=== PATIENT | male | born 1955 | race Caucasian/White ===

== ENCOUNTER 2017-04-03 20:41 | Emergency (ER) | payer MEDICARE, MEDICAID ==
[2017-04-03 21:18] VITALS: BP 78/40
--- NOTE | 2017-04-03 21:30 | UC ---
Skin Complaint HPI - HPI Summary HPI Summary: Red and blistered area to R shoulder noticed today. Pt states he has had this in the past, but does not remember any diagnosis or treatment. Pt has limited cognitive ability and does not estimate time well or remember details. Denies fever, malaise, or fainting. Was at [facility] for a long time about a month ago for a foot infection in R foot. Is taking levaquin and doxycycline for this, having regular dressing changes. - History of Current Complaint Chief Complaint: UCSkin Time Seen by Provider: 04/03/17 20:46 Stated Complaint: SKIN COMPLAINT Hx Obtained From: Patient, Medical Records Onset/Duration: Still Present Timing: Constant Onset Severity: Mild Current Severity: Mild Location: Discrete Character: Raised Aggravating: Nothing Alleviating: Nothing Associated Signs & Symptoms: Positive: Negative Related History: Recent change in medication - Allergy/Home Medications Allergies/Adverse Reactions: Allergies Allergy/AdvReac Type Severity Reaction Status Date / Time No Known Allergies Allergy Verified 04/03/17 20:57 Home Medications: Home Medications Acetaminophen TAB* [Tylenol TAB*] 650 mg PO BID PRN 04/03/17 [History Confirmed 04/03/17] Artificial Tears* 15 ML BTL [Polyvinyl Alcohol 1.4% OPTH*] 1 drop BOTH EYES DAILY 04/03/17 [History Confirmed 04/03/17] Dextrose (Diabetic Use) [Glucose] 6 gm PO ONCE PRN 04/03/17 [History Confirmed 04/03/17] Doxycycline Hyclate [Doryx] 100 mg PO BID 04/03/17 [History Confirmed 04/03/17] Glucagon* [Glucagen*] 1 mg .SEE ORDER SEE INSTRUCTIONS PRN 04/03/17 [History Confirmed 04/03/17] Insulin Aspart [Novolog Flexpen] 100 unit SC DAILY 04/03/17 [History Confirmed 04/03/17] Levofloxacin [Levaquin] 1.5 tab PO DAILY 04/03/17 [History Confirmed 04/03/17] Melatonin 5 mg PO BEDTIME 04/03/17 [History Confirmed 04/03/17] OLANzapine TAB* [Zyprexa 5 MG TAB*] 5 mg PO BEDTIME 04/03/17 [History Confirmed 04/03/17] metFORMIN* [Glucophage 500 MG TAB *] 500 mg PO BID 04/03/17 [History Confirmed 04/03/17] Review of Systems Constitutional: Negative Skin: Other - blisters Eyes: Negative ENT: Negative Respiratory: Negative Cardiovascular: Negative Gastrointestinal: Negative Genitourinary: Negative Motor: Negative Neurovascular: Negative Musculoskeletal: Negative Neurological: Negative Psychological: Negative All Other Systems Reviewed And Are Negative: Yes PMH/Surg Hx/FS Hx/Imm Hx Endocrine History: Diabetes Cardiovascular History: Hypertension Respiratory History: Asthma GI/ History: Gastroesophageal Reflux Other Neurological History: CP, MR - Surgical History Surgical History: Yes Surgery Procedure, Year, and Place: TRACHEOSTOMY. GASTROSTOMY. AMPUTATION TOES RIGHT FOOT - Family History Known Family History: Positive: Unknown - not in medical record provided - Social History Occupation: Disabled Lives: Senior Living Alcohol Use: None Substance Use Type: None Smoking Status (MU): Never Smoked Tobacco Physical Exam Triage Information Reviewed: Yes Appearance: Well-Appearing, No Pain Distress, Well-Nourished, Other: - pt able to stand for minutes at a time without syncope or reported feelings of dizziness Vital Signs: Initial Vital Signs Temp 98.3 F 04/03/17 20:47 Pulse 83 04/03/17 20:47 Resp 16 04/03/17 20:47 BP 88/44 04/03/17 20:47 Pulse Ox 100 04/03/17 20:47 Vital Signs Reviewed: Yes Eye Exam: Normal, Other - PERRL, EOM-I Eyes: Positive: Conjunctiva Clear ENT: Positive: Normal ENT inspection, Pharynx normal, TMs normal. Negative: Tonsillar swelling Neck exam: Normal Neck: Positive: Supple, Nontender, No Lymphadenopathy Respiratory Exam: Normal Respiratory: Positive: Chest non-tender, Lungs clear, Normal breath sounds, No respiratory distress, No accessory muscle use Cardiovascular Exam: Normal Cardiovascular: Positive: RRR, No Murmur Abdomen Description: Negative: CVA Tenderness (R), CVA Tenderness (L) Musculoskeletal Exam: Normal Neurological Exam: Normal Neurological: Positive: Alert Psychological Exam: Normal Skin Exam: Other - Irreg separate red patches of skin on R posterior shoulder with raised bullae x 3, one partially flaccid. Appear to have serous fluid in them, no drainage. R foot inspected around adhesive bandage. No erythema, streaking, swelling, or tenderness. Course/Dx - Diagnoses Provider Diagnoses: bullous rash on R shoulder. hypotension Discharge - Discharge Plan Condition: Stable Disposition: HOME Patient Education Materials: Hypotension (ED) Referrals: Carmelita Alaniz [Other] Additional Instructions: We could not find a cause for the blistering rash on the shoulder tonight. Burn injury is possible, though Max denies any painful injuries in recent days. Other possibilities include autoimmune illness and drug reaction. If rash continues to worsen, I recommend discussing changing or discontinuing his antibiotics with his prescribing provider. Max's blood pressure was low here, and it appears to be significantly lower than his baseline. Our readings were 88/44 and 78/40, taken in both arms and with a machine and manually. Because he had no other symptoms of fainting, confusion, or dizziness, this can be followed up outpatient with his primary care provider. If he faints, please bring him to an emergency department.
== END 2017-04-03 21:50 | disposition home or self-care (01) ==
LOC: UCCORT 20:41
DX: R23.8 Other skin changes (principal); I95.9 Hypotension, unspecified; E11.9 Type 2 diabetes mellitus without complications; Z79.4 Long term (current) use of insulin; I10 Essential (primary) hypertension; J45.909 Unspecified asthma, uncomplicated; K21.9 Gastro-esophageal reflux disease without esophagitis
CPT/HCPCS: 81003; 99202; G0463

== ENCOUNTER 2017-08-04 15:51 | Emergency (ER) | payer MEDICARE, MEDICAID ==
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
[2017-08-04 16:38] VITALS: BP 129/64
--- NOTE | 2017-08-04 17:50 | RAD ---
Indication: Right hip pain. 2 views of the right hip demonstrates no fracture. Degenerative changes of the right hip are noted. Pelvic ring is intact. IMPRESSION: Degenerative changes of the right hip with no evidence of fracture.
--- NOTE | 2017-08-04 17:51 | RAD ---
Indication: Right knee pain. 4 views of the right knee demonstrates no fracture. Degenerative changes are noted with calcifications along the quadriceps tendon. IMPRESSION: No fracture of the right knee is noted.
== END 2017-08-04 18:03 | disposition home or self-care (01) ==
LOC: UCCORT 15:51
DX: M25.551 Pain in right hip (principal); M25.561 Pain in right knee
CPT/HCPCS: 99212; G0463

== ENCOUNTER 2018-05-13 12:45 | Emergency (ER) | payer MEDICARE, MEDICAID ==
--- OUTSIDE RECORDS SUMMARY | 2018-05-13 13:45 | XMS REPORT ---
:1955 External Reference #:[id number] Author Organization [facility] Address [address], [address] [place] [address] Phone [phone] Care Team Providers Name Role Phone Kiersten Powell M.D. Care Team Information Online Education Manager Unavailable Kiersten Powell M.D. Primary Care Physician Unavailable Payers Type Date Identification Numbers Payment Provider Subscriber Medicare Primary Policy Number: [id number] Medicare Max Elizabeth PayID: [id number] [address] [place] [address] Medicaid Policy Number: [id number] Medicaid Max Elizabeth PayID: [id number] [address] [place] [address] Problems Date Description Provider Status Onset: 04/05/2017 Benign essential hypertension Kiersten Powell M.D. Active Onset: 04/06/2017 Diabetic peripheral neuropathy associated Kiersten Powell M.D. Active with type 2 diabetes mellitus Onset: 01/17/2018 Localized, primary osteoarthritis Sam Inman M.D. Active Onset: 12/19/2017 Arthralgia of the pelvic region and thigh Kiersten Powell M.D. Active Onset: 12/19/2017 Knee pain Kiersten Powell M.D. Active Social History Type Date Description Comments Marital Status Single Lives With Assisted Living Occupation Retired Occupation Disabled Work Status Retired Work Status Disabled Hand Dominance Right-handed Cigarette Use Never Smoked Cigarettes Cigars Never Smoked Cigars Pipe Never Smoked A Pipe Smokeless Tobacco Never Used Smokeless Tobacco ETOH Use Has consumed alcohol in the past Recreational Drug Use Former Drug User Smoking Patient denies history of smoking Daily Caffeine Comsumes on average 1 cup of decaff coffee per day Daily Caffeine Does Not Consume Caffeine Exercise Type/Frequency Exercises regularly Allergies, Adverse Reactions, Alerts Date Description Reaction Status Severity Comments 01/31/2017 NKDA active 01/31/2017 Lactose active Medications Medication Date Status Form Strength Qnty SIG Indications Ordering Provider Aspirin 04/19 Active Tablets 81mg 90tab 1 by Z00.[address] s mouth M.D. every day Hydrocortisone 04/19 Active Cream 2.5% 20gm apply to L30.9 Kiersten Powell affected M.D. area three times a day prn (right leg) Metoprolol 04/19 Active Tablets 50mg 60tab 1 by Kiersten Powell Tartrate s mouth M.D. twice a day Lisinopril 03/15 Active Tablets 40mg 30tab 1 by I10 Kiersten Powell s mouth M.D. every day Tizanidine HCL 09/22 Active Tablets 4mg 30tab Take 1 Kiersten Powell s Tablet By M.DJvoon Mouth Every 8 Hours as Needed Unistik CZT 09/19 Active 100un Test Kiersten Powell Comfort its Sugars as M.D. Lancet Directed Gabapentin 09/01 Active Capsules 300mg 90cap 1 tab by M25.551 Kiersten Powell s mouth QHS M.D. Atorvastatin 07/07 Active Tablets 10mg 30tab 1 By Kiersten Powell Calcium s Mouth M.D. Every Day Acetaminophen 07/07 Active Tablets 500mg 180ta 2 tabs by Kiersten Powell, bs mouth M.D. every 8 hours as needed pain, mdd=3g Lancets Ultra 06/20 Active Misc 100un test Jenniferleigh its sugars as Clune, COSMETIC SALES ASSISTANT directed dxe11.9 Glucagon 06/07 Active Kit 1mg 2unit inject as Lj Nath s needed Vitamin D 06/06 Active Capsules [id number] 4caps 1 cap by Kiersten Powell, (Ergocalciferol mouth M.D. ) every week Metamucil 05/23 Active Powder 58.6% 1Bott 1 Kiersten Powell Smooth le tablespocurry M.D. n in 8oz of water tid for constipat ion Metformin HCL Active Tablets 500mg 1 by Unknown /0000 mouth twice a day Melatonin Active Capsules 5mg 1 by Unknown / mouth every at bedtime as needed Levemir Active Solution 100Unit/M 50 units Unknown /0000 L at hs Hydroxyzine HCL Active Tablets 25mg 1 tab PO Slaven, Daniel, bid Glucose Active Chewtabs 4gm 1 tab by Unknown / mouth as needed Aripiprazole Active Tablets 15mg take 1 Unknown tab po once a day Lamotrigine Active Tablets 25mg take two tablets by mouth three times a day Lac-Hydrin Active Lotion 12% apply to affected area 2 times a day Ketostix 2880 Active use as Unknown /0000 directed. max daily dose: 10 dx:E11.65 Lisinopril 01/16 Hx Tablets 30mg 30tab 1 by I10 Kiersten Powell, s mouth M.D. - every day 03/15 Sildenafil 01/16 Hx Tablets 50mg 5tabs 1 tab by F52.21 Kiersten Powell, mouth 1 M.D. - hour 04/19 before sexual activity Baclofen 09/19 Hx Tablets 10mg 60tab take 1 Kiersten Powell s tablet by M.D. - mouth 8H 09/22 pr muscle spasms Tizanidine HCL 09/12 Hx Tablets 4mg 30tab Take 1 Kiersten Powell, s Tablet By M.D. - Mouth 09/19 Every Hours as Needed Acetaminophen 07/07 Hx Capsules 500mg 180ca 2 caps by Kiersten Powell, ps mouth q8 M.D. - as needed 07/07 pain mdd=3g Acetaminophen 06/07 Hx Tablets 325mg 2 tablets Lj Nath, by mouth MD - bid by 07/07 mouth as needed for paini Lisinopril 04/06 Hx Tablets 20mg 30tab 1 by I10 Kiersten Powell, s mouth M.D. - every day 01/16 Amlodipine Hx Tablets 10mg 1 by Unknown Besylate / mouth - every day 04/06 Abilify Hx Tablets 15mg 1 PO Unknown /0000 Daily - 04/19 Fenofibrate 00 Hx Tablets 160mg 1 by Unknown /0000 mouth - every day 04/06 Lisinopril 00 Hx Tablets 40mg 1 by Unknown /0000 mouth - every day 04/06 Zyprexa 00 Hx Tablets 2.5mg 1 po Unknown /0000 daily Tylenol Hx Capsules 325mg 1 tab by Unknown /0000 mouth - three 06/07 day Breo Ellipta Hx Aerosol 200-25mcg take 1 Unknown /0000 /Inh puff once - daily. 04/06 Levemir Hx Solution 100Unit/M 42 units Unknown /0000 L sq every day....valles s samples of the pen Novolog Hx Solution 100Unit/M sliding Unknown /0000 L scale - 03/20 Doxycycline Hx Capsules 50mg 2po twice Unknown Hyclate /0000 daily - 06/07 Artificial Hx Solution 1.4% instill 1 Unknown Tears /0000 drop in - both eyes 03/20 4 times day Levofloxacin Hx Tablets 750mg 1 1/2 by Unknown /0000 mouth - every day 06/07 Olanzapine Hx Tablets 5mg Take One Unknown /0000 Tablet By - Mouth 04/19 Evening Atorvastatin Hx Tablets 20mg 1 by Unknown Calcium /0000 mouth - every day 07/07 Robaxin Hx Tablets 500mg 120ta 1 q8hr as Kiersten Powell, /0000 bs needed M.D. - 09/12 Mobic Hx Tablets 7.5mg 1 by Unknown /0000 mouth - twice a Doxycycline Hx 100mg 1 cap po Unknown /0000 bid x 14 - days 09/12 Lamotrigine Hx 25mg 2 tabs Unknown /0000 tid - 03/20 Metoprolol Hx Tablets 25mg 180ta 1 by Kiersten Powell, Tartrate /0000 bs mouth M.D. - twice a Liquitears Hx Solution 1.4% instill 1 Unknown /0000 drop into - both eyes 04/19 as needed /2018 Immunizations CPT Code Status Date Vaccine Lot # [id number] Given 07/07/2017 Influenza Virus Vaccine Quadrivalent Iiv4 Split Preser Free Id Vital Signs Date Vital Result Comment 04/19/2018 BP Systolic Sitting Left Arm 160 mmHg BP Diastolic Sitting Left Arm 82 mmHg Heart Rate 82 /min Height 68.75 inches 5'8.75" Weight 224.50 lb BMI (Body Mass Index) 33.4 kg/m2 BSA (Body Surface Area) 2.16 m2 [place] body weight in kilograms 72 O2 % BldC Oximetry 99 % 03/20/2018 BP Systolic Sitting Left Arm 146 mmHg BP Diastolic Sitting Left Arm 84 mmHg Body Temperature 96.5 F Heart Rate 64 /min Height 65 inches 5'5" Weight 225.00 lb BMI (Body Mass Index) 37.4 kg/m2 BSA (Body Surface Area) 2.08 m2 [place] body weight in kilograms 62 03/15/2018 BP Systolic 152 mmHg BP Diastolic 82 mmHg Body Temperature 96.5 F Heart Rate 68 /min Respiratory Rate 20 /min Height 72 inches 6'0" Weight 222.00 lb BMI (Body Mass Index) 30.1 kg/m2 BSA (Body Surface Area) 2.23 m2 [place] body weight in kilograms 81 O2 % BldC Oximetry 99 % 01/17/2018 BP Systolic Sitting Right Arm 149 mmHg BP Diastolic Sitting Right Arm 73 mmHg Body Temperature 97.2 F Heart Rate 61 /min Respiratory Rate 18 /min Height 72 inches 6'0" Weight 222.00 lb BMI (Body Mass Index) 30.1 kg/m2 BSA (Body Surface Area) 2.23 m2 [place] body weight in kilograms 81 01/16/2018 BP Systolic Sitting Left Arm 140 mmHg BP Diastolic Sitting Left Arm 84 mmHg Height 72 inches 6'0" Weight 222.12 lb BMI (Body Mass Index) 30.1 kg/m2 BSA (Body Surface Area) 2.23 m2 [place] body weight in kilograms 81 12/19/2017 BP Systolic 124 mmHg BP Diastolic 80 mmHg Heart Rate 66 /min Height 72 inches 6'0" Weight 215.00 lb BMI (Body Mass Index) 29.2 kg/m2 BSA (Body Surface Area) 2.20 m2 [place] body weight in kilograms 81 O2 % BldC Oximetry 99 % 10/18/2017 BP Systolic Sitting Left Arm 162 mmHg BP Diastolic Sitting Left Arm 68 mmHg Heart Rate 84 /min Height 72 inches 6'0" Weight 213.25 lb BMI (Body Mass Index) 28.9 kg/m2 BSA (Body Surface Area) 2.19 m2 [place] body weight in kilograms 81 09/01/2017 BP Systolic Sitting Right Arm 124 mmHg BP Diastolic Sitting Right Arm 72 mmHg Heart Rate 49 /min Height 72 inches 6'0" Weight 215.38 lb BMI (Body Mass Index) 29.2 kg/m2 BSA (Body Surface Area) 2.20 m2 [place] body weight in kilograms 81 O2 % BldC Oximetry 97 % 07/07/2017 BP Systolic 134 mmHg BP Diastolic 84 mmHg Body Temperature 97.1 F Heart Rate 73 /min Height 72 inches 6'0" Weight 213.00 lb BMI (Body Mass Index) 28.9 kg/m2 BSA (Body Surface Area) 2.19 m2 [place] body weight in kilograms 81 O2 % BldC Oximetry 99 % 06/06/2017 BP Systolic 140 mmHg BP Diastolic 88 mmHg Heart Rate 73 /min Weight 210.00 lb with boot on 04/06/2017 BP Systolic 118 mmHg BP Diastolic 72 mmHg Body Temperature 96.5 F Heart Rate 98 /min Height 72 inches 6'0" Weight 205.00 lb BMI (Body Mass Index) 27.8 kg/m2 BSA (Body Surface Area) 2.15 m2 [place] body weight in kilograms 81 03/16/2017 BP Systolic Sitting Left Arm 104 mmHg BP Diastolic Sitting Left Arm 62 mmHg Heart Rate 92 /min Respiratory Rate 16 /min Height 72 inches 6'0" Weight 210.00 lb BMI (Body Mass Index) 28.5 kg/m2 BSA (Body Surface Area) 2.18 m2 [place] body weight in kilograms 81 O2 % BldC Oximetry 99 % 01/31/2017 BP Systolic Sitting Left Arm 112 mmHg BP Diastolic Sitting Left Arm 60 mmHg Heart Rate 86 /min Respiratory Rate 16 /min Height 72 inches 6'0" Weight 216.00 lb BMI (Body Mass Index) 29.3 kg/m2 BSA (Body Surface Area) 2.20 m2 [place] body weight in kilograms 81 O2 % BldC Oximetry 98 % Results Test Date Test Result H/L Range Note Ua RFX Micro & Culture II 03/17/2018 Urine Color YELLOW Yellow 1 Urine Clarity CLEAR Clear 1 Urine Glucose - Dipstick NEGATIVE mg/dL Negative 1 Urine Bilirubin - Dipstick NEGATIVE Negative 1 Urine Ketone NEGATIVE mg/dL Negative 1 Urine Specific Glover <=1.005 Low 1.010-1.030 1 Urine Blood TRACE Negative 1 Urine PH 5.5 Low 6.5-7.5 1 Urine Protein - Dipstick NEGATIVE mg/dL Negative 1 Urine Urobilinogen - Dipstick 0.2 E.U./dL 0.2-1.0 1 Urine Nitrite - Dipstick NEGATIVE Negative 1 Urine Leuk Esterase NEGATIVE Negative 1 Source: URINE, CLEAN CAT <SEE NOTE> 1, 2 Hemoglobin A1c 02/21/2018 Hgb A1c MFr Bld 7.4 % High 4.0-6.0 Est. average glucose Bld gHb Est-mCnc 166 mg/dL High <126 Laboratory test finding 02/21/2018 Glucose Poc 143 mg/dL High 70-105 Basic Metabolic Panel 01/16/2018 Glucose 172 mg/dL High 74-106 3 BUN 24 mg/dL High 7-18 3 Creatinine 1.3 mg/dL 0.6-1.3 3 Glom Filtration Rate, Estimate 59 mL/min >60 3 If >60 mL/min >60 3, 4 BUN/Creat 18.4 ratio 3 Sodium 140 mmol/L 136-145 3 Potassium 4.4 mmol/L 3.5-5.1 3 Chloride 106 mmol/L 98-107 3 Carbon Dioxide 30 mmol/L 21-32 3 Anion Gap 4 mEq/L Low 8-16 3 Calcium 8.7 mg/dL 8.5-10.1 3 Hemoglobin A1c 11/24/2017 Hgb A1c MFr Bld 7.1 % High 4.0-6.0 Est. average glucose Bld gHb Est-mCnc 157 mg/dL High <126 Laboratory test finding 11/24/2017 Glucose Poc 84 mg/dL 70-105 Stool Culture 11/22/2017 Stool Culture NO ENTERIC PATHO <SEE 5, 6 NOTE> . ................ <SEE NOTE> 5, 7 Note: INCLUDES TESTING <SEE NOTE> 5, 8 . PLESIOMONAS, CAM <SEE NOTE> 5, 9 . ................ <SEE NOTE> 5, 10 . YERSINIA AND VIB <SEE NOTE> 5, 11 . SHOULD BE REQUES <SEE NOTE> 5, 12 Shiga Toxin 1 Antigen SHIGA TOXIN 1 NO <SEE NOTE> 5, 13 Shiga Toxin 2 Antigen SHIGA TOXIN 2 NO <SEE NOTE> 5, 14 Ova & Parasite 11/22/2017 Cryptosporidium Specific NEGATIVE FOR CRY 5, 15 Comprehensive Ag <SEE NOTE> Giardia Specific Antigen NEGATIVE FOR RHONDA <SEE NOTE> 5, 16 Parasite Concentrate Exam Result 1 5, 17 Permanent Trichrome Stain Test not perform <SEE NOTE> 5, 18 Laboratory test 11/22/2017 C. Difficile Toxin B Negative for tox 5, 19 finding By PCR <SEE NOTE> CBC + Diff, Plat Count 10/10/2017 WBC Num Bld Auto 6.6 10*3/uL 4-10 RBC Num Bld Auto 4.23 10*6/uL Low 4.6-6.1 Hgb Bld-mCnc 12.2 g/dL Low 13.5-18 Hct VFr Bld Auto 37.3 % Low 41-53 MCV RBC Auto 88.1 fL 80-96 MCH RBC Qn Auto 28.8 pg 27-33 MCHC RBC Auto-mCnc 32.7 g/dL 32.0-36.0 RDW RBC Auto-Rto 12.5 % 11.5-14.5 Platelet Num Bld Auto 138 10*3/uL Low 150-400 Differential method Bld Automated Diff Neutrophils/leuk NFr Bld Auto 60 % 33-73 Lymphocytes/leuk NFr Bld Auto 28 % 13-52 Monocytes/leuk NFr Bld Auto 8 % 0-11 Eosinophil/leuk NFr Bld Auto 3 % 0-5 Basophils/leuk NFr Bld Auto 1 % 0-2 Neutrophils Num Bld Auto 3.96 10*3/uL 1.8-7.0 Lymphocytes Num Bld Auto 1.86 10*3/uL 1.2-4.0 Monocytes Num Bld Auto 0.56 10*3/uL 0-0.8 Eosinophil Num Bld Auto 0.17 10*3/uL 0-0.5 Basophils Num Bld Auto 0.04 10*3/uL 0-0.2 nRBC/100 WBC Bld Auto-Rto 0 /100{WBCs} 0-0 Laboratory test finding 10/10/2017 Sed Rate - Esr 21 mm/hr High <20 Comprehensive Metabolic [place] 10/10/2017 Albumin SerPl 4.1 g/dL 3.5-5.2 20 BCG-mCnc Bilirub SerPl-mCnc 0.3 mg/dL <1.2 21 Calcium SerPl-mCnc 9.4 mg/dL 8.8-10.2 22 Chloride SerPl-sCnc 105 mmol/L 98-107 23 Creat SerPl-mCnc 0.90 mg/dL 0.5-1.2 24 Glucose SerPl-mCnc 49 mg/dL Low 70-140 25 Alp SerPl-cCnc 115 U/L 40-129 26 Potassium SerPl-sCnc 5.3 mmol/L High 3.5-5.1 27 Prot SerPl-mCnc 6.8 g/dL 6.4-8.3 28 Sodium SerPl-sCnc 142 mmol/L 136-145 29 Ast SerPl-cCnc 22 U/L <40 30 BUN SerPl-mCnc 21 mg/dL 8-23 31 Osmolality SerPl Calc 294 mosm/kg 275-300 32 Creat/Urea nit SerPl 23 33 Hco3 Ser-sCnc 25 mmol/L 22-29 34 Alt SerPl-cCnc 31 U/L <41 35 Anion Gap3 SerPl-sCnc 12 mmol/L 8-15 36 Albumin/Glob SerPl 1.5 37 GFR/Bsa pred.non black SerPl MDRD-ArVRat 89 mL/min/1.73m2 >60 38 GFR/Bsa pred.black SerPl MDRD-ArVRat >90 mL/min/1.73m2 >60 39 Laboratory test finding 10/10/2017 CRP Highly Sensitive 1.5 mg/L <3.0 40 LDL Cholesterol Profile 06/23/2017 Cholesterol 63 mg/dL <200 41, 42 Triglycerides 76 mg/dL <150 41, 43 HDL Cholesterol 44 mg/dL >40 41, 44 LDL-Cholesterol 4 mg/dL < 100 41, 45 Comprehensive Metabolic Panel 06/23/2017 Glucose 224 mg/dL High 74-106 41 BUN 23 mg/dL High 7-18 41 Creatinine 0.9 mg/dL 0.6-1.3 41 Glom Filtration Rate, Estimate >60 mL/min >60 41 If >60 mL/min >60 41, 46 BUN/Creat 25.5 ratio 41 Sodium 141 mmol/L 136-145 41 Potassium 4.6 mmol/L 3.5-5.1 41 Chloride 111 mmol/L High 98-107 41 Carbon Dioxide 26 mmol/L 21-32 41 Anion Gap 4 mEq/L Low 8-16 41 Calcium 9.0 mg/dL 8.5-10.1 41 Total Protein 7.6 g/dL 6.4-8.2 41 Albumin 3.5 g/dL 3.4-5.0 41 Globulin 4.1 g/dL 1.9-4.3 41 Alb/Glob 0.9 ratio 41 Bilirubin,Total 0.4 mg/dL 0.2-1.0 41 Sgot/Ast 18 U/L 15-37 41 SGPT/Alt 33 U/L 12-78 41 Alkaline Phosphatase 132 U/L High 45-117 41 Laboratory test 05/24/2017 Troponin-I 0.044 ng/mL 47, 48 finding Laboratory test 05/24/2017 Hepatitis C Antibody 0.1 s/corat 0.0-0. 47, 49 finding 9 Glycohemoglobin A1c 05/24/2017 Glycohemoglobin (A1c) 7.3 % High 4.2-6. 47 , 50 3 eAG 163 mg/dL 47 Laboratory test finding 05/24/2017 Troponin-I 0.045 ng/mL 47, 51 Basic Metabolic Panel 05/24/2017 Glucose 201 mg/dL High 74-106 47 BUN 19 mg/dL High 7-18 47 Creatinine 0.8 mg/dL 0.6-1.3 47 Glom Filtration Rate, Estimate >60 mL/min >60 47 If >60 mL/min >60 47, 52 BUN/Creat 23.7 ratio 47 Sodium 140 mmol/L 136-145 47 Potassium 4.0 mmol/L 3.5-5.1 47 Chloride 105 mmol/L 98-107 47 Carbon Dioxide 27 mmol/L 21-32 47 Anion Gap 8 mEq/L 8-16 47 Calcium 9.0 mg/dL 8.5-10.1 47 CBS W/Automated Diff 05/24/2017 White Blood Count 6.7 K/uL 3.4-10.5 47 Red Blood Count 4.52 M/uL 4.20-5.80 47 Hemoglobin 12.6 gm/dL Low 12.8-17.0 47 Hematocrit 37.7 % Low 38.0-48.0 47 Mean Cell Volume 83.4 fl 80.0-96.0 47 Mean Corpuscular HGB 27.9 pg 27.0-33.0 47 Mean Corpuscular HGB Conc 33.4 g/dL 31.7-36.0 47 Platelet Count 128 K/uL Low 150-400 47 Red Cell Distri Width SD 38.0 fl 36-51 47 Red Cell Distri Width %CV 12.8 % 11.6-15.8 47 Mean Platelet Volume 13.2 fL High 6.6-10.6 47 Neut% 57.2 % 33.0-73.0 47 Lymph % 29.6 % 20.0-42.0 47 Grainger % 8.6 % 0.0-10.0 47 Eo% 4.3 % 0.0-6.6 47 Bas% 0.3 % 0.0-1.1 47 Neut# 3.85 K/uL 1.8-7.0 47 Lymph # 1.99 K/uL 1.0-4.0 47 Grainger # 0.58 K/uL 0.0-0.8 47 Eos # 0.29 K/uL 0.0-0.5 47 Baso # 0.02 K/uL 0.0-0.1 47 Aot Request 05/23/2017 Aot Request Test(s) added 53, 54 Tests to be added: d-dimer 53 Instructions: thank you 53 CBS W/Automated Diff 05/23/2017 White Blood Count 6.9 K/uL 3.4-10.5 53 Red Blood Count 4.56 M/uL 4.20-5.80 53 Hemoglobin 12.6 gm/dL Low 12.8-17.0 53 Hematocrit 37.9 % Low 38.0-48.0 53 Mean Cell Volume 83.1 fl 80.0-96.0 53 Mean Corpuscular HGB 27.6 pg 27.0-33.0 53 Mean Corpuscular HGB Conc 33.2 g/dL 31.7-36.0 53 Platelet Count 135 K/uL Low 150-400 53 Red Cell Distri Width SD 37.9 fl 36-51 53 Red Cell Distri Width %CV 12.7 % 11.6-15.8 53 Mean Platelet Volume 13.0 fL High 6.6-10.6 53 Neut% 64.4 % 33.0-73.0 53 Lymph % 25.0 % 20.0-42.0 53 Grainger % 7.7 % 0.0-10.0 53 Eo% 2.5 % 0.0-6.6 53 Bas% 0.4 % 0.0-1.1 53 Neut# 4.45 K/uL 1.8-7.0 53 Lymph # 1.73 K/uL 1.0-4.0 53 Grainger # 0.53 K/uL 0.0-0.8 53 Eos # 0.17 K/uL 0.0-0.5 53 Baso # 0.03 K/uL 0.0-0.1 53 Laboratory test finding 05/23/2017 Troponin-I 0.039 ng/mL 55, 56 1 FELL LAST NIGHT, R SIDE RIB, L FLANK PAIN 2 URINE, CLEAN CATCH 3 I10 4 Note: Persistent reduction for 3 months or more in an eGFR <60 mL/min/1.73 m2 defines CKD. Patients with eGFR values >/=60 mL/min/1.73 m2 may also have CKD if evidence of persistent proteinuria is present. The original MDRD equation for estimated GFR is not valid for patients less than 18 years of age. Additional information may be found at www.kdoqi.org. 5 R19.7 6 NO ENTERIC PATHOGENS ISOLATED 7 ................................................... 8 INCLUDES TESTING FOR SALMONELLA, SHIGELLA, AEROMONAS, 9 PLESIOMONAS, CAMPYLOBACTER, AND E. COLI 0157:H7 10 ................................................... 11 YERSINIA AND VIBRIO ARE NOT ROUTINELY SCREENED FOR AND 12 SHOULD BE REQUESTED SEPARATELY 13 SHIGA TOXIN 1 NOT DETECTED 14 SHIGA TOXIN 2 NOT DETECTED Method: ImmunoCard STAT/EHEC Rapid Immunochromatographic Assay 15 NEGATIVE FOR CRYPTOSPORIDIUM SPECIFIC ANTIGEN 16 NEGATIVE FOR GIARDIA SPECIFIC ANTIGEN. The specimen will be held for 5 days. Additional testing may be performed upon request if the antigen tests are negative, and the patient is still symptomatic or has traveled to an endemic region. Method: Alere Quik Chek Rapid Membrane Enzyme Immunoassay 17 No ova, cysts, or parasites seen. One negative specimen does not rule out the possibility of a parasitic infection Performed at: RN - [facility] [address] [id number] Survey Statistician: Irina Vitale MD, Phone: [phone] 18 Test not performed 19 Negative for toxigenic C. difficile by PCR 20 Confirmed 21 Confirmed 22 Confirmed 23 Confirmed 24 Confirmed 25 Confirmed Called to and read back by NOTIFIED MEAGAN [phone] Confirmed 27 Confirmed 28 Confirmed 29 Confirmed 30 Confirmed 31 Confirmed 32 Confirmed 33 Confirmed 34 Confirmed 35 Confirmed 36 Confirmed 37 Confirmed 38 Confirmed 39 Confirmed 40 Confirmed (NOTE) CRPHS (mg/L) CVD risk <1.0 low 1.0-3.0 average >3.0 high 41 I10 42 Reference Guidelines*: Desirable: ........... < 200 mg/dL Borderline High: ..... 200-239 mg/dL High: ................ >=240 mg/dL * The National Cholesterol Education Program (NCEP) 43 Reference Guidelines*: Normal: ............. < 150 mg/dL Borderline High: .... 150-199 mg/dL High: ............... 200-499 mg/dL Very High: .......... > 500 mg/dL * Source: National Cholesterol Education Program (NCEP) 44 Reference Guidelines*: Low HDL: ..... < 40 mg/dL Normal: ..... 40-60 mg/dL Desirable: ... > 60 mg/dL *The National Cholesterol Education Program(NCEP) 45 Reference Guidelines*: Optimal:........... <100 mg/dL Near Optimal....... 100-129 mg/dL Borderline High.... 130-159 mg/dL High............... 160-189 mg/dL Very High.......... >=190 mg/dL * Source: National Cholesterol Education Program (NCEP) 46 Note: Persistent reduction for 3 months or more in an eGFR <60 mL/min/1.73 m2 defines CKD. Patients with eGFR values >/=60 mL/min/1.73 m2 may also have CKD if evidence of persistent proteinuria is present. The original MDRD equation for estimated GFR is not valid for patients less than 18 years of age. Additional information may be found at www.kdoqi.org. 47 CHEST PAIN,ACS 48 0.0 - 0.045 ng/mL: Normal 0.046 - 0.5 ng/mL: Suggestive 0.6 - 1.5 ng/mL: Consistent 49 INFCE Result Units: s/co ratio Negative: < 0.8 Indeterminate: 0.8 - 0.9 Positive: > 0.9 The CDC recommends that a positive HCV antibody result be followed up with a HCV Nucleic Acid Amplification test (898231). Performed at: - [facility] [id number] Survey Statistician: Irina Vitale MD, Phone: [phone] 50 Elevated levels of HbA1c suggest the need for more aggressive treatment of glycemia. The [place] [employer] recommends that a primary goal of therapy should be a HbA1c of <7% and that physicians should re-evaluate the treatment regimen in patients with HbA1c values consistently >8%. 51 0.0 - 0.045 ng/mL: Normal 0.046 - 0.5 ng/mL: Suggestive 0.6 - 1.5 ng/mL: Consistent 52 Note: Persistent reduction for 3 months or more in an eGFR <60 mL/min/1.73 m2 defines CKD. Patients with eGFR values >/=60 mL/min/1.73 m2 may also have CKD if evidence of persistent proteinuria is present. The original MDRD equation for estimated GFR is not valid for patients less than 18 years of age. Additional information may be found at www.kdoqi.org. 53 CHEST PAIN 54 Tests: d-dimer Instructions: thank you 55 CHEST PAIN,ACS 56 0.0 - 0.045 ng/mL: Normal 0.046 - 0.5 ng/mL: Suggestive 0.6 - 1.5 ng/mL: Consistent Procedures Date CPT Code Description Status Comment 02/21/2018 Diabetic Foot Exam Completed Dr. Cabello 10/25/2017 33084 EKG Interpretation And Report Only Completed 05/23/2017 16762 Echocardiogram Complete Completed 05/23/2017 80902 Stress Test Interpre And Report Only Completed 05/23/2017 98376 Stress Test Physician Super Only Completed 05/23/2017 25463 Myocardial Imaging Tomographic Multiple Completed Study AT Rest Or Stress 02/22/2017 93595 Bronchospasm Provocation Evaluation Multi Completed Spirometric Determinati 02/22/2017 77751 Spirometry Completed Encounters Type Date Location Provider CPT E/M Dx Office Visit 03/20/2018 3:30p Family Medicine Kiersten Powell M.D. 33388 R10.31 M25.562 Office Visit 03/15/2018 8:45a Family Medicine Kiersten Powell M.D. 35737 I10 E78.5 E11.42 Office Visit 01/17/2018 3:00p Orthopaedic Office Sam Inman M.D. 29156 M17.11 Office Visit 01/16/2018 3:00p Family Medicine Kiersten Powell M.D. 85762 I10 E78.5 M25.561 F52.21 Office Visit 12/19/2017 2:30p Family Medicine Kiersten Powell M.D. 29234 M25.561 M25.551 Office Visit 10/18/2017 3:15p Family Medicine Kiersten Powell M.D. 71203 I10 E78.5 M25.551 R19.7 Office Visit 09/01/2017 11:45a Family Medicine Kiersten Powell M.D. 02676 M25.551 Office Visit 07/07/2017 11:00a Family Medicine Kiersten Powell M.D. 55516 Z23 I10 E78.5 E11.42 M25.551 Z23 Office Visit 06/06/2017 2:00p Family Medicine GUTIERREZ Parker 65682 R07.9 I10 Office Visit 04/06/2017 1:45p Family Medicine Kiersten Powell M.D. 59748 I10 R06.02 H91.93 Office Visit 03/16/2017 1:15[place] [address] R06.02 Office Visit 01/31/2017 1:00[place] [address] R06.02 Z78.9 Plan of Care 04/19/2018 - Kiersten Sherry, M.D.Z00.01 Encounter for general adult medical exam w abnormal findingsNew Medication:Aspirin 81 mgComments:Discussed lifestyle modification, healthy balanced diet and moderate exercise 30 mins dailyImmunizations: pneumovax today, prevnar at 64 and then pneumovax #2 5 years from today's shotwill check blood work todaydiscussed colon CA screen, with current diarrhea symptoms, will refer to GI for colon Ca screen and symptomsDiscussed safety, regular dental visits, eye exam and wearing oddxybvhgG57.5 Encounter for screening for malignant neoplasm of prostateNew Labs:Prostate Specific ZimimslO58.11 Encounter for screening for malignant neoplasm of colonReferral:Nando Yang MD, JgmmhmabbqhoumomR97 Essential ( primary) hypertensionNew Labs:Comprehensive Metabolic PanelComments:Elevated, not at goal <140/90continue with lisinopril 40mg, will increase metoprolol 25mg BID to 50mg BID will monitor HR, if below 50 will hold med and call or if symptomaticwill check CMP todayFollow up:1 [id number] Hyperlipidemia, unspecifiedNew Labs:LDL Cholesterol ProfileComments:will recheck lipid panel, has been low in the pastis on atorvastatin 10mg, added ASA daily [id number] Vitamin D deficiency, unspecifiedNew Labs:Vitamin D,25-HydroxyComments:Has been on high dose repletion, will recheck levels [id number] Dermatitis, unspecifiedNew Medication:Hydrocortisone 2.5 %Comments:appears to be irritation from scar tissue and dry skinwill continue to keep area moisturized and canuse HC cream [id number] Diarrhea, unspecifiedNew Labs:C. Difficile Toxin B By PCRComments:Having persistent intermittent diarrhea, previous stool studies were negative but recent + exposure,will recheckwill also refer to GI for non- resolving symptoms
[2018-05-13 13:53] VITALS: BP 112/55
--- NOTE | 2018-05-13 14:15 | UC ---
Head Injury HPI - HPI Summary HPI Summary: Walker got caught on table and he fell backwards. Witnessed by neighbor. Denies LOC. Some headache. - History Of Current Complaint Chief Complaint: UCGeneralIllness Stated Complaint: S/P FALL (BACK) Time Seen by Provider: 05/13/18 14:06 Hx Obtained From: Patient Onset/Duration: Sudden Onset Severity Currently: Moderate Severity Initially: Moderate Pain Intensity: 5 Character: Dull Aggravating Factor(s): Nothing Alleviating Factor(s): Nothing Associated Signs And Symptoms: Positive: Negative - Risk Factors SDH Risk Factor: Recent Trauma Risk Factors For Cervical Spine Injury: Posterior Midline Cervical Spine Tenderness - Allergies/Home Medications Allergies/Adverse Reactions: Allergies Allergy/AdvReac Type Severity Reaction Status Date / Time No Known Allergies Allergy Verified 08/04/17 16:30 Home Medications: Home Medications Aspirin 81 mg CHEW TAB* 81 mg PO DAILY 05/13/18 [History Confirmed 05/13/18] Gabapentin [Neurontin] 300 mg PO BEDTIME 05/13/18 [History Confirmed 05/13/18] Hydrocortisone 2.5% CREAM(NF) 1 applic TOPICAL TID PRN 05/13/18 [History Confirmed 05/13/18] lamoTRIgine [Lamotrigine] 25 mg PO TID 05/13/18 [History Confirmed 05/13/18] tiZANidine TAB* [Zanaflex TAB*] 4 mg PO TID PRN 05/13/18 [History Confirmed ] PMH/Surg Hx/FS Hx/Imm Hx Endocrine History: Diabetes Cardiovascular History: Hypertension Respiratory History: COPD GI/ History: Gastroesophageal Reflux Other Neurological History: Mental retardation. - Surgical History Surgical History: Yes Surgery Procedure, Year, and Place: TRACHEOSTOMY. GASTROSTOMY. AMPUTATION TOES RIGHT FOOT - Family History Known Family History: Positive: Unknown - not in medical record provided - Social History Occupation: Disabled Lives: Alf Alcohol Use: None Substance Use Type: None Smoking Status (MU): Never Smoked Tobacco Review of Systems Neurological: Headache Is Patient Immunocompromised?: No All Other Systems Reviewed And Are Negative: Yes Physical Exam Triage Information Reviewed: Yes Appearance: Well-Appearing, No Pain Distress, Well-Nourished Vital Signs: Initial Vital Signs Temp 98.1 F 05/13/18 13:47 Pulse 64 05/13/18 13:47 Resp 18 05/13/18 13:47 BP 112/55 05/13/18 13:47 Pulse Ox 100 05/13/18 13:47 Vital Signs Reviewed: Yes Eyes: Positive: Conjunctiva Clear Neck: Positive: Supple, Tenderness @ - Spinous process in the middle of the c- spine Respiratory: Positive: Lungs clear Cardiovascular Exam: Normal Musculoskeletal Exam: Normal Neurological Exam: Normal Skin Exam: Normal Diagnostics - Radiology No standard instances Xray Interpretation: No Acute Changes - extensive DDD degenerative joint disease. Radiology Interpretation Completed By: ED Physician Head Injury Course/Dx - Differential Dx/Diagnosis Differential Diagnosis/HQI/PQRI: Cerebral Contusion, Cervical Sprain, Concussion Without LOC, Contusion Provider Diagnoses: Contusion head. Neck pain. Discharge - Sign-Out/Discharge Documenting (check all that apply): Patient Departure - Discharge Plan Condition: Stable Disposition: HOME Patient Education Materials: Scalp Contusion in Adults (ED) Referrals: Kiersten Powell MD [Primary Care Provider] - - Billing Disposition and Condition Condition: STABLE Disposition: Home
--- NOTE | 2018-05-13 14:41 | RAD ---
INDICATION: Neck pain COMPARISON: None TECHNIQUE: Routine five-view imaging was performed FINDINGS: Bones: There are no acute bony findings. There are findings of DISH. There is multilevel facet arthropathy. Craniocervical junction: The odontoid and atlantodental interval are normal. Alignment: Normal Disc spaces: The disc spaces are well-maintained Soft tissues: The prevertebral soft tissues are normal. IMPRESSION: OSTEOARTHRITIC CHANGES. NO ACUTE FINDINGS.
== END 2018-05-13 14:48 | disposition home or self-care (01) ==
LOC: UCCORT 12:45
DX: S00.93XA Contusion of unspecified part of head, initial encounter (principal); M54.2 Cervicalgia; E11.9 Type 2 diabetes mellitus without complications; I10 Essential (primary) hypertension; J44.9 Chronic obstructive pulmonary disease, unspecified; F79 Unspecified intellectual disabilities; Z79.82 Long term (current) use of aspirin; W19.XXXA Unspecified fall, initial encounter; Y92.9 Unspecified place or not applicable
CPT/HCPCS: 72040; 99212; G0463

== ENCOUNTER 2018-07-10 19:56 | Emergency (ER) | payer MEDICARE, MEDICAID ==
--- OUTSIDE RECORDS SUMMARY | 2018-07-10 21:01 | XMS REPORT ---
:1955 External Reference #:[id number] Author Organization Formerly [facility] 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 Times A Day as Needed (Itching) Metoprolol 04/19 Active Tablets 50mg 60tab 1 by mouth Sherry, Tar s twice a day Sun Burch Lisinopril 03/15 Active Tablets 40mg 30tab 1 by mouth I10 s every day Sun Burch Tizanidine HCL 09/22 Active Tablets 4mg 30tab Take 1 Tablet s By Mouth Kiersten, Every 8 Hours M.D. as Needed Gabapentin 09/01 Active Capsules 300mg 90cap 1 tab by M25.551 s mouth QHS Sun Burch Atorvastatin 07/07 Active Tablets 10mg 30tab 1 By Mouth s Every Day Sun Burch Acetaminophen 07/07 Active Tablets 500mg 180ta 2 tabs by bs mouth every 8 Kiersten, hours as M.D. 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 Metformin HCL Active Tablets 500mg 1 by mouth Unknown /0000 twice a day Melatonin 00 Active Capsules 5mg 1 by mouth Unknown /0000 every at bedtime as needed Levemir 00 Active Solution 100Unit/M 50 units at Unknown /0000 L hs Hydroxyzine HCL Active Tablets 25mg 1 tab PO bid Niko, / MD Daniel Glucose Active Chewtabs 4gm 1 tab by Unknown / mouth as needed Aripiprazole Active Tablets 15mg take 1 tab po Unknown /0000 once a day Lamotrigine Active Tablets 25mg take two Unknown tablets by mouth three times a day Lac-Hydrin Active Lotion 12% apply to affected area 2 times a day Ketostix 2880 Active use as Unknown /0000 directed. max daily dose: 10 dx:E11.65 Lisinopril 01/16 Hx Tablets 30mg 30tab 1 by mouth I10 Sherry, s every day Jay Burch.DJovon 03/15 Sildenafil 01/16 Hx Tablets 50mg 5tabs 1 tab by F52.21 Sherry, mouth 1 hour Kiersten, - before sexual M.D. 04/19 activity Baclofen 09/19 Hx Tablets 10mg 60tab take 1 tablet Sherry s by mouth 8H Kiersten, - prn muscle M.D. 09/22 spasms Unistik CZT 09/19 Hx 100un Test Sugars Sherry, Comfort its as Directed Kane Burch - M.DJovon 04/19 Tizanidine HCL 09/12 Hx Tablets 4mg 30tab Take 1 Tablet s By Mouth Kiersten, - Every 8 Hours M.D. 09/19 as Needed Acetaminophen 07/07 Hx Capsules 500mg 180ca 2 caps by Sherry ps mouth q8 as Kiersten, - needed pain M.D. 07/07 mdd=3g Acetaminophen 06/07 Hx Tablets 325mg 2 tablets by Pham, mouth bid by MD Lj - mouth as 07/07 needed for paini Metamucil Smooth 05/23 Hx Powder 58.6% 1Bott 1 tablespoon Sherry, le in 8oz of Kiersten, - water tid for M.D. 04/19 constipation Lisinopril 04/06 Hx Tablets 20mg 30tab 1 by mouth I10 Sherry, s every day Jay Burch.DJovon 01/16 Amlodipine Hx Tablets 10mg 1 by mouth Unknown Besylate /0000 every day - 04/06 Abilify / Hx Tablets 15mg 1 PO Daily Unknown /0000 - 04/19 Fenofibrate Hx Tablets 160mg 1 by mouth Unknown /0000 every day - 04/06 Lisinopril Hx Tablets 40mg 1 by mouth Unknown /0000 every day - 04/06 Zyprexa Hx Tablets 2.5mg 1 po daily Unknown /0000 Tylenol Hx Capsules 325mg 1 tab by Unknown /0000 mouth three - times per day 06/07 Breo Ellipta Hx Aerosol 200-25mcg take 1 puff Unknown /0000 /Inh once daily. - 04/06 Levemir Hx Solution 100Unit/M 42 units sq Unknown /0000 L every day....has samples of the pen Novolog Hx Solution 100Unit/M sliding scale Unknown /0000 L - 03/20 Doxycycline Hx Capsules 50mg 2po twice Unknown Hyclate /0000 daily - 06/07 Artificial Tears Hx Solution 1.4% instill 1 Unknown /0000 drop in both - eyes 4 times 03/20 a /2017 Levofloxacin Hx Tablets 750mg 1 1/2 by Unknown /0000 mouth every - day 06/07 Olanzapine Hx Tablets 5mg Take One Unknown /0000 Tablet By - Mouth Every 04/19 Atorvastatin Hx Tablets 20mg 1 by mouth Unknown Calcium /0000 every day - 07/07 Robaxin Hx Tablets 500mg 120ta 1 q8hr as Sherry, /0000 bs needed Jay Burch M.D. 09/12 Mobic Hx Tablets 7.5mg 1 by mouth Unknown /0000 twice a day - 09/01 Doxycycline Hx 100mg 1 cap po bid Unknown /0000 x 14 days - 09/12 Lamotrigine Hx 25mg 2 tabs tid Unknown /0000 - 03/20 Metoprolol Hx Tablets 25mg 180ta 1 by mouth Sherry, Tartrate /0000 bs twice a day Jay Burch M.D. 04/19 Liquitears 00 Hx Solution 1.4% instill 1 Unknown /0000 drop into - both eyes as 04/19 Medications Administered in Office Medication Date Status Form Strength Qnty SIG Indications Ordering Provider Depomedrol 80 Administered Injection mg Dony Zurita [facility] Immunizations CPT Code Status Date Vaccine Lot # [id number] Given 04/19/2018 Pneumovax Injection [id number] Given 07/07/2017 Influenza Virus Vaccine Quadrivalent Iiv4 Split Preser Free Id Vital Signs Date Vital Result Comment 07/04/2018 BP Systolic Sitting Left Arm 152 mmHg BP Diastolic Sitting Left Arm 71 mmHg Body Temperature 97.6 F Heart Rate 61 /min Respiratory Rate 18 /min Height 68.75 inches 5'8.75" Weight 230.38 lb BMI (Body Mass Index) 34.3 kg/m2 BSA (Body Surface Area) 2.19 m2 [place] body weight in kilograms 72 O2 % BldC Oximetry 100 % 05/29/2018 BP Systolic 162 mmHg BP Diastolic 72 mmHg Body Temperature 96.1 F Heart Rate 66 /min Respiratory Rate 18 /min Height 68.75 inches 5'8.75" Weight 226.00 lb BMI (Body Mass Index) 33.6 kg/m2 BSA (Body Surface Area) 2.17 m2 [place] body weight in kilograms 72 O2 % BldC Oximetry 97 % 04/19/2018 BP Systolic Sitting Left Arm 160 mmHg BP Diastolic Sitting Left Arm 82 mmHg Heart Rate 82 /min Height 68.75 inches 5'8.75" Weight 224.50 lb BMI (Body Mass Index) 33.4 kg/m2 BSA (Body Surface Area) 2.16 m2 [place] body weight in kilograms 72 O2 % BldC Oximetry 99 % 03/20/2018 BP Systolic Sitting Left Arm 146 mmHg BP Diastolic Sitting Left Arm 84 mmHg Body Temperature 96.5 F Heart Rate 64 /min Height 65 inches 5'5" Weight 225.00 lb BMI (Body Mass Index) 37.4 kg/m2 BSA (Body Surface Area) 2.08 m2 [place] body weight in kilograms 62 03/15/2018 BP Systolic 152 mmHg BP Diastolic 82 mmHg Body Temperature 96.5 F Heart Rate 68 /min Respiratory Rate 20 /min Height 72 inches 6'0" Weight 222.00 lb BMI (Body Mass Index) 30.1 kg/m2 BSA (Body Surface Area) 2.23 m2 [place] body weight in kilograms 81 O2 % BldC Oximetry 99 % 01/17/2018 BP Systolic Sitting Right Arm 149 mmHg BP Diastolic Sitting Right Arm 73 mmHg Body Temperature 97.2 F Heart Rate 61 /min Respiratory Rate 18 /min Height 72 inches 6'0" Weight 222.00 lb BMI (Body Mass Index) 30.1 kg/m2 BSA (Body Surface Area) 2.23 m2 [place] body weight in kilograms 81 01/16/2018 BP Systolic Sitting Left Arm 140 mmHg BP Diastolic Sitting Left Arm 84 mmHg Height 72 inches 6'0" Weight 222.12 lb BMI (Body Mass Index) 30.1 kg/m2 BSA (Body Surface Area) 2.23 m2 [place] body weight in kilograms 81 12/19/2017 BP Systolic 124 mmHg BP Diastolic 80 mmHg Heart Rate 66 /min Height 72 inches 6'0" Weight 215.00 lb BMI (Body Mass Index) 29.2 kg/m2 BSA (Body Surface Area) 2.20 m2 [place] body weight in kilograms 81 O2 % BldC Oximetry 99 % 10/18/2017 BP Systolic Sitting Left Arm 162 mmHg BP Diastolic Sitting Left Arm 68 mmHg Heart Rate 84 /min Height 72 inches 6'0" Weight 213.25 lb BMI (Body Mass Index) 28.9 kg/m2 BSA (Body Surface Area) 2.19 m2 [place] body weight in kilograms 81 09/01/2017 BP Systolic Sitting Right Arm 124 mmHg BP Diastolic Sitting Right Arm 72 mmHg Heart Rate 49 /min Height 72 inches 6'0" Weight 215.38 lb BMI (Body Mass Index) 29.2 kg/m2 BSA (Body Surface Area) 2.20 m2 [place] body weight in kilograms 81 O2 % BldC Oximetry 97 % 07/07/2017 BP Systolic 134 mmHg BP Diastolic 84 mmHg Body Temperature 97.1 F Heart Rate 73 /min Height 72 inches 6'0" Weight 213.00 lb BMI (Body Mass Index) 28.9 kg/m2 BSA (Body Surface Area) 2.19 m2 [place] body weight in kilograms 81 O2 % [...] kg/m2 BSA (Body Surface Area) 2.15 m2 [place] body weight in kilograms 81 03/16/2017 BP Systolic Sitting Left Arm 104 mmHg BP Diastolic Sitting Left Arm 62 mmHg Heart Rate 92 /min Respiratory Rate 16 /min Height 72 inches 6'0" Weight 210.00 lb BMI (Body Mass Index) 28.5 kg/m2 BSA (Body Surface Area) 2.18 m2 [place] body weight in kilograms 81 O2 % BldC Oximetry 99 % 01/31/2017 BP Systolic Sitting Left Arm 112 mmHg BP Diastolic Sitting Left Arm 60 mmHg Heart Rate 86 /min Respiratory Rate 16 /min Height 72 inches 6'0" Weight 216.00 lb BMI (Body Mass Index) 29.3 kg/m2 BSA (Body Surface Area) 2.20 m2 [place] body weight in kilograms 81 O2 % BldC Oximetry 98 % Results Test Date Test Result H/L Range Note Basic Metabolic Panel 05/29/2018 Glucose 202 mg/dL High 74-106 1 BUN 31 mg/dL High 7-18 1 Creatinine 1.4 mg/dL High 0.6-1.3 1 Glom Filtration Rate, Estimate 54 mL/min >60 1 If >60 mL/min >60 1, 2 BUN/Creat 22.1 ratio 1 Sodium 144 mmol/L 136-145 1 Potassium 5.0 mmol/L 3.5-5.1 1 Chloride 110 mmol/L High 98-107 1 Carbon Dioxide 26 mmol/L 21-32 1 Anion Gap 8 mEq/L 8-16 1 Calcium 8.5 mg/dL 8.5-10.1 1 Hemoglobin A1c 05/24/2018 Hgb A1c MFr Bld 7.5 % High 4.0-6.0 Est. average glucose Bld gHb Est-mCnc 169 mg/dL High <126 Laboratory test 05/24/2018 Glucose Poc 194 mg/dL High 70-105 finding Microalbumin,Urine 05/24/2018 Microalbumin Ur-mCnc Broken/Spilled i < 23.0 3 <SEE NOTE> mg/L Creat Ur-mCnc Broken/Spilled i <SEE NOTE> mg/dL 4 Albumin/Creat Ur Broken/Spilled i <SEE NOTE> ug/mgcreat <20.0 5 Laboratory test finding 05/24/2018 Vitamin B12 659 pg/mL 211-946 Lipid Profile 1 05/24/2018 Cholest SerPl-mCnc 80 mg/dL <200 Trigl SerPl-mCnc 254 mg/dL High <150 HDLc SerPl-mCnc 31 mg/dL Low >40 LDLc SerPl Calc-mCnc Questionable Res <SEE NOTE> mg/dL <100 6 VLDLc SerPl Calc-mCnc 51 mg/dL High 16-42 NonHDLc SerPl-mCnc 49 mg/dL <130 Laboratory test finding 05/24/2018 TSH 1.000 u[IU]/mL 0.270-4.200 Vit D 25 Hydroxy Total 29 ng/mL Low >30 Comprehensive Metabolic Marrero 05/24/2018 Albumin SerPl BCG-mCnc 3.9 g/dL 3.5-5.2 Bilirub SerPl-mCnc 0.3 mg/dL <1.2 Calcium SerPl-mCnc 8.8 mg/dL 8.8-10.2 Chloride SerPl-sCnc 106 mmol/L 98-107 Creat SerPl-mCnc 1.24 mg/dL High 0.5-1.2 Glucose SerPl-mCnc 203 mg/dL High 70-140 Alp SerPl-cCnc 130 U/L High 40-129 Potassium SerPl-sCnc 5.6 mmol/L High 3.5-5.1 Prot SerPl-mCnc 6.8 g/dL 6.4-8.3 Sodium SerPl-sCnc 139 mmol/L 136-145 Ast SerPl-cCnc 15 U/L <40 BUN SerPl-mCnc 26 mg/dL High 8-23 Osmolality SerPl Calc 299 mosm/kg 275-300 Creat/Urea nit SerPl 21 Hco3 Ser-sCnc 27 mmol/L 22-29 Alt SerPl-cCnc 28 U/L <41 Anion Gap3 SerPl-sCnc 6 mmol/L Low 8-15 Albumin/Glob SerPl 1.3 GFR/Bsa pred.non black SerPl MDRD-ArVRat 60 mL/min/1.73m2 Low >60 GFR/Bsa pred.black SerPl MDRD-ArVRat 70 mL/min/1.73m2 >60 Laboratory test 04/19/2018 Vitamin D,25-Hydroxy 39.3 ng/mL 30.0-100.0 7 , 8 finding Laboratory test 04/19/2018 Prostate Specific 0.30 ng/mL < 4.0 7, 9 finding Antigen Comprehensive 04/19/2018 Glucose 303 mg/dL High 74-106 7 Metabolic Panel BUN 29 mg/dL High 7-18 7 Creatinine 1.3 mg/dL 0.6-1.3 7 Glom Filtration Rate, Estimate 59 mL/min >60 7 If >60 mL/min >60 7, 10 BUN/Creat 22.3 ratio 7 Sodium 138 mmol/L 136-145 7 Potassium 5.0 mmol/L 3.5-5.1 7 Chloride 106 mmol/L 98-107 7 Carbon Dioxide 27 mmol/L 21-32 7 Anion Gap 5 mEq/L Low 8-16 7 Calcium 8.2 mg/dL Low 8.5-10.1 7 Total Protein 7.7 g/dL 6.4-8.2 7 Albumin 3.4 g/dL 3.4-5.0 7 Globulin 4.3 g/dL 1.9-4.3 7 Alb/Glob 0.8 ratio 7 Bilirubin,Total 0.3 mg/dL 0.2-1.0 7 Sgot/Ast 32 U/L 15-37 7 SGPT/Alt 54 U/L 12-78 7 Alkaline Phosphatase 142 U/L High 45-117 7 LDL Cholesterol Profile 04/19/2018 Cholesterol 66 mg/dL <200 7, 11 Triglycerides 72 mg/dL <150 7, 12 HDL Cholesterol 36 mg/dL Low >40 7, 13 LDL-Cholesterol 16 mg/dL < 100 7, 14 Ua RFX Micro & Culture II 03/17/2018 Urine Color YELLOW Yellow 15 Urine Clarity CLEAR Clear 15 Urine Glucose - Dipstick NEGATIVE mg/dL Negative 15 Urine Bilirubin - Dipstick NEGATIVE Negative 15 Urine Ketone NEGATIVE mg/dL Negative 15 Urine Specific Morgan <=1.005 Low 1.010-1.030 15 Urine Blood TRACE Negative 15 Urine PH 5.5 Low 6.5-7.5 15 Urine Protein - Dipstick NEGATIVE mg/dL Negative 15 Urine Urobilinogen - Dipstick 0.2 E.U./dL 0.2-1.0 15 Urine Nitrite - Dipstick NEGATIVE Negative 15 Urine Leuk Esterase NEGATIVE Negative 15 Source: URINE, CLEAN CAT <SEE NOTE> 15, 16 Hemoglobin A1c 02/21/2018 Hgb A1c MFr Bld 7.4 % High 4.0-6.0 Est. average glucose Bld gHb Est-mCnc 166 mg/dL High <126 Laboratory test finding 02/21/2018 Glucose Poc 143 mg/dL High 70-105 Basic Metabolic Panel 01/16/2018 Glucose 172 mg/dL High 74-106 17 BUN 24 mg/dL High 7-18 17 Creatinine 1.3 mg/dL 0.6-1.3 17 Glom Filtration Rate, Estimate 59 mL/min >60 17 If >60 mL/min >60 17, 18 BUN/Creat 18.4 ratio 17 Sodium 140 mmol/L 136-145 17 Potassium 4.4 mmol/L 3.5-5.1 17 Chloride 106 mmol/L 98-107 17 Carbon Dioxide 30 mmol/L 21-32 17 Anion Gap 4 mEq/L Low 8-16 17 Calcium 8.7 mg/dL 8.5-10.1 17 Hemoglobin A1c 11/24/2017 Hgb A1c MFr Bld 7.1 % High 4.0-6.0 Est. average glucose Bld gHb Est-mCnc 157 mg/dL High <126 Laboratory test finding 11/24/2017 Glucose Poc 84 mg/dL 70-105 Stool Culture 11/22/2017 Stool Culture NO ENTERIC PATHO 19, 20 <SEE NOTE> . ................ <SEE NOTE> 19, 21 Note: INCLUDES TESTING <SEE NOTE> 19, 22 . PLESIOMONAS, CAM <SEE NOTE> 19, 23 . ................ <SEE NOTE> 19, 24 . YERSINIA AND VIB <SEE NOTE> 19, 25 . SHOULD BE REQUES <SEE NOTE> 19, 26 Shiga Toxin 1 Antigen SHIGA TOXIN 1 NO <SEE NOTE> 19, 27 Shiga Toxin 2 Antigen SHIGA TOXIN 2 NO <SEE NOTE> 19, 28 Ova & Parasite 11/22/2017 Cryptosporidium Specific NEGATIVE FOR CRY 19 , 29 Comprehensive Ag <SEE NOTE> Giardia Specific Antigen NEGATIVE FOR RHONDA <SEE NOTE> 19, 30 Parasite Concentrate Exam Result 1 19, 31 Permanent Trichrome Stain Test not perform <SEE NOTE> 19, 32 Laboratory test 11/22/2017 C. Difficile Toxin Negative for tox 19, 33 finding B By PCR <SEE NOTE> Comprehensive 10/10/2017 Albumin SerPl 4.1 g/dL 3.5-5.2 34 Metabolic Marrero BCG-mCnc Bilirub SerPl-mCnc 0.3 mg/dL <1.2 35 Calcium SerPl-mCnc 9.4 mg/dL 8.8-10.2 36 Chloride SerPl-sCnc 105 mmol/L 98-107 37 Creat SerPl-mCnc 0.90 mg/dL 0.5-1.2 38 Glucose SerPl-mCnc 49 mg/dL Low 70-140 39 Alp SerPl-cCnc 115 U/L 40-129 40 Potassium SerPl-sCnc 5.3 mmol/L High 3.5-5.1 41 Prot SerPl-mCnc 6.8 g/dL 6.4-8.3 42 Sodium SerPl-sCnc 142 mmol/L 136-145 43 Ast SerPl-cCnc 22 U/L <40 44 BUN SerPl-mCnc 21 mg/dL 8-23 45 Osmolality SerPl Calc 294 mosm/kg 275-300 46 Creat/Urea nit SerPl 23 47 Hco3 Ser-sCnc 25 mmol/L 22-29 48 Alt SerPl-cCnc 31 U/L <41 49 Anion Gap3 SerPl-sCnc 12 mmol/L 8-15 50 Albumin/Glob SerPl 1.5 51 GFR/Bsa pred.non black SerPl MDRD-ArVRat 89 mL/min/1.73m2 >60 52 GFR/Bsa pred.black SerPl MDRD-ArVRat >90 mL/min/1.73m2 >60 53 Laboratory test finding 10/10/2017 CRP Highly Sensitive 1.5 mg/L <3.0 54 Laboratory test finding 10/10/2017 Sed Rate - Esr 21 mm/hr High <20 CBC + Diff, Plat Count 10/10/2017 WBC [...] nRBC/100 WBC Bld Auto-Rto 0 /100{WBCs} 0-0 Comprehensive Metabolic Panel 06/23/2017 Glucose 224 mg/dL High 74-106 55 BUN 23 mg/dL High 7-18 55 Creatinine 0.9 mg/dL 0.6-1.3 55 Glom Filtration Rate, Estimate >60 mL/min >60 55 If >60 mL/min >60 55, 56 BUN/Creat 25.5 ratio 55 Sodium 141 mmol/L 136-145 55 Potassium 4.6 mmol/L 3.5-5.1 55 Chloride 111 mmol/L High 98-107 55 Carbon Dioxide 26 mmol/L 21-32 55 Anion Gap 4 mEq/L Low 8-16 55 Calcium 9.0 mg/dL 8.5-10.1 55 Total Protein 7.6 g/dL 6.4-8.2 55 Albumin 3.5 g/dL 3.4-5.0 55 Globulin 4.1 g/dL 1.9-4.3 55 Alb/Glob 0.9 ratio 55 Bilirubin,Total 0.4 mg/dL 0.2-1.0 55 Sgot/Ast 18 U/L 15-37 55 SGPT/Alt 33 U/L 12-78 55 Alkaline Phosphatase 132 U/L High 45-117 55 LDL Cholesterol Profile 06/23/2017 Cholesterol 63 mg/dL <200 55, 57 Triglycerides 76 mg/dL <150 55, 58 HDL Cholesterol 44 mg/dL >40 55, 59 LDL-Cholesterol 4 mg/dL < 100 55, 60 Basic Metabolic Panel 05/24/2017 Glucose 201 mg/dL High 74-106 61 BUN 19 mg/dL High 7-18 61 Creatinine 0.8 mg/dL 0.6-1.3 61 Glom Filtration Rate, Estimate >60 mL/min >60 61 If >60 mL/min >60 61, 62 BUN/Creat 23.7 ratio 61 Sodium 140 mmol/L 136-145 61 Potassium 4.0 mmol/L 3.5-5.1 61 Chloride 105 mmol/L 98-107 61 Carbon Dioxide 27 mmol/L 21-32 61 Anion Gap 8 mEq/L 8-16 61 Calcium 9.0 mg/dL 8.5-10.1 61 Laboratory test 05/24/2017 Troponin-I 0.045 ng/mL 61, 63 finding Glycohemoglobin A1c 05/24/2017 Glycohemoglobin (A1c) 7.3 % High 4.2-6. 61 , 64 3 eAG 163 mg/dL 61 Laboratory test finding 05/24/2017 Hepatitis C Antibody 0.1 s/corat 0.0- 0.9 61, 65 Laboratory test finding 05/24/2017 Troponin-I 0.044 ng/mL 61, 66 CBS W/Automated Diff 05/24/2017 White Blood Count 6.7 K/uL 3.4-10.5 61 Red Blood Count 4.52 M/uL 4.20-5.80 61 Hemoglobin 12.6 gm/dL Low 12.8-17.0 61 Hematocrit 37.7 % Low 38.0-48.0 61 Mean Cell Volume 83.4 fl 80.0-96.0 61 Mean Corpuscular HGB 27.9 pg 27.0-33.0 61 Mean Corpuscular HGB Conc 33.4 g/dL 31.7-36.0 61 Platelet Count 128 K/uL Low 150-400 61 Red Cell Distri Width SD 38.0 fl 36-51 61 Red Cell Distri Width %CV 12.8 % 11.6-15.8 61 Mean Platelet Volume 13.2 fL High 6.6-10.6 61 Neut% 57.2 % 33.0-73.0 61 Lymph % 29.6 % 20.0-42.0 61 Beltrami % 8.6 % 0.0-10.0 61 Eo% 4.3 % 0.0-6.6 61 Bas% 0.3 % 0.0-1.1 61 Neut# 3.85 K/uL 1.8-7.0 61 Lymph # 1.99 K/uL 1.0-4.0 61 Beltrami # 0.58 K/uL 0.0-0.8 61 Eos # 0.29 K/uL 0.0-0.5 61 Baso # 0.02 K/uL 0.0-0.1 61 Laboratory test finding 05/23/2017 Troponin-I 0.039 ng/mL 61, 67 Aot Request 05/23/2017 Aot Request Test(s) added 68, 69 Tests to be added: d-dimer 68 Instructions: thank you 68 CBS W/Automated Diff 05/23/2017 White Blood Count 6.9 K/uL 3.4-10.5 68 Red Blood Count 4.56 M/uL 4.20-5.80 68 Hemoglobin 12.6 gm/dL Low 12.8-17.0 68 Hematocrit 37.9 % Low 38.0-48.0 68 Mean Cell Volume 83.1 fl 80.0-96.0 68 Mean Corpuscular HGB 27.6 pg 27.0-33.0 68 Mean Corpuscular HGB Conc 33.2 g/dL 31.7-36.0 68 Platelet Count 135 K/uL Low 150-400 68 Red Cell Distri Width SD 37.9 fl 36-51 68 Red Cell Distri Width %CV 12.7 % 11.6-15.8 68 Mean Platelet Volume 13.0 fL High 6.6-10.6 68 Neut% 64.4 % 33.0-73.0 68 Lymph % 25.0 % 20.0-42.0 68 Bel[place]ami % 7.7 % 0.0-10.0 68 Eo% 2.5 % 0.0-6.6 68 Bas% 0.4 % 0.0-1.1 68 Neut# 4.45 K/uL 1.8-7.0 68 Lymph # 1.73 K/uL 1.0-4.0 68 Beltrami # 0.53 K/uL 0.0-0.8 68 Eos # 0.17 K/uL 0.0-0.5 68 Baso # 0.03 K/uL 0.0-0.1 68 1 I10 2 Note: Persistent reduction for 3 months or more in an eGFR <60 mL/min/1.73 m2 defines CKD. Patients with eGFR values >/=60 mL/min/1.73 m2 may also have CKD if evidence of persistent proteinuria is present. The original MDRD equation for estimated GFR is not valid for patients less than 18 years of age. Additional information may be found at www.kdoqi.org. 3 Broken/Spilled in Transit 4 Broken/Spilled in Transit 5 Broken/Spilled in Transit 6 Questionable Result, New Specimen Requested 7 Z12.5 I10 E78.5 E55.9 8 Vitamin D deficiency has been defined by the [place] [employer] and an Endocrine Society practice guideline as a level of serum 25-OH vitamin D less than 20 ng/mL (1,2). The Endocrine Society went on to further define vitamin D insufficiency as a level between 21 and 29 ng/mL (2). 1. IOM ([place] [employer]). 2010. Dietary reference intakes for calcium and D. [place]: The National Academies Press. 2. Lucia MF, Cordelia NC, Gonzalo BEE, et al. Evaluation, treatment, and prevention of vitamin D deficiency: an Endocrine Society clinical practice guideline. JCEM. 2010; 96(7):1911-30. Performed at: - [facility] [id number] [employer] Dist[employer]: Irina Vitale MD, Phone: [phone] 9 THIS ASSAY IS NOT INTENDED A CANCER SCREENING TEST The concentration of PSA in a given specimen, determined with assays from different manufacturers, can vary due to differences in assay methods and reagent specificity. Values obtained from different assay methods cannot be used interchangeably. Method: [employer] Chemiluminescent immunoassay. 10 Note: Persistent reduction for 3 months or more in an eGFR <60 mL/min/1.73 m2 defines CKD. Patients with eGFR values >/=60 mL/min/1.73 m2 may also have CKD if evidence of persistent proteinuria is present. The original MDRD equation for estimated GFR is not valid for patients less than 18 years of age. Additional information may be found at www.kdoqi.org. 11 Reference Guidelines*: Desirable: ........... < 200 mg/dL Borderline High: ..... 200-239 mg/dL High: ................ >=240 mg/dL * The National Cholesterol Education Program (NCEP) 12 Reference Guidelines*: Normal: ............. < 150 mg/dL Borderline High: .... 150-199 mg/dL High: ............... 200-499 mg/dL Very High: .......... > 500 mg/dL * Source: National Cholesterol Education Program (NCEP) 13 Reference Guidelines*: Low HDL: ..... < 40 mg/dL Normal: ..... 40-60 mg/dL Desirable: ... > 60 mg/dL *The National Cholesterol Education Program(NCEP) 14 Reference Guidelines*: Optimal:........... <100 mg/dL Near Optimal....... 100-129 mg/dL Borderline High.... 130-159 mg/dL High............... 160-189 mg/dL Very High.......... >=190 mg/dL * Source: National Cholesterol Education Program (NCEP) 15 FELL LAST NIGHT, R SIDE RIB, L FLANK PAIN 16 URINE, CLEAN CATCH 17 I10 18 Note: Persistent reduction for 3 months or more in an eGFR <60 mL/min/1.73 m2 defines CKD. Patients with eGFR values >/=60 mL/min/1.73 m2 may also have CKD if evidence of persistent proteinuria is present. The original MDRD equation for estimated GFR is not valid for patients less than 18 years of age. Additional information may be found at www.kdoqi.org. 19 R19.7 20 NO ENTERIC PATHOGENS ISOLATED 21 ................................................... 22 INCLUDES TESTING FOR SALMONELLA, SHIGELLA, AEROMONAS, 23 PLESIOMONAS, CAMPYLOBACTER, AND E. COLI 0157:H7 24 ................................................... 25 YERSINIA AND VIBRIO ARE NOT ROUTINELY SCREENED FOR AND 26 SHOULD BE REQUESTED SEPARATELY 27 SHIGA TOXIN 1 NOT DETECTED 28 SHIGA TOXIN 2 NOT DETECTED Method: ImmunoCard STAT/EHEC Rapid Immunochromatographic Assay 29 NEGATIVE FOR CRYPTOSPORIDIUM SPECIFIC ANTIGEN 30 NEGATIVE FOR GIARDIA SPECIFIC ANTIGEN. The specimen will be held for 5 days. Additional testing may be performed upon request if the antigen tests are negative, and the patient is still symptomatic or has traveled to an endemic region. Method: Alere Quik Chek Rapid Membrane Enzyme Immunoassay 31 No ova, cysts, or parasites seen. One negative specimen does not rule out the possibility of a parasitic infection Performed at: [facility] [id number] [employer] Dist[employer]: Irina Vitale MD, Phone: [phone] 32 Test not performed 33 Negative for toxigenic C. difficile by PCR 34 Confirmed 35 Confirmed 36 Confirmed 37 Confirmed 38 Confirmed 39 Confirmed Called to and read back by NOTIFIED MEAGAN [id number] 40 Confirmed 41 Confirmed 42 Confirmed 43 Confirmed 44 Confirmed 45 Confirmed 46 Confirmed 47 Confirmed 48 Confirmed 49 Confirmed 50 Confirmed 51 Confirmed 52 Confirmed 53 Confirmed 54 Confirmed (NOTE) CRPHS (mg/L) CVD risk <1.0 low 1.0-3.0 average >3.0 high 55 I10 56 Note: Persistent reduction for 3 months or more in an eGFR <60 mL/min/1.73 m2 defines CKD. Patients with eGFR values >/=60 mL/min/1.73 m2 may also have CKD if evidence of persistent proteinuria is present. The original MDRD equation for estimated GFR is not valid for patients less than 18 years of age. Additional information may be found at www.[email or web address]. 57 Reference Guidelines*: Desirable: ........... < 200 mg/dL Borderline High: ..... 200-239 mg/dL High: ................ >=240 mg/dL * The National Cholesterol Education Program (NCEP) 58 Reference Guidelines*: Normal: ............. < 150 mg/dL Borderline High: .... 150-199 mg/dL High: ............... 200-499 mg/dL Very High: .......... > 500 mg/dL * Source: National Cholesterol Education Program (NCEP) 59 Reference Guidelines*: Low HDL: ..... < 40 mg/dL Normal: ..... 40-60 mg/dL Desirable: ... > 60 mg/dL *The National Cholesterol Education Program(NCEP) 60 Reference Guidelines*: Optimal:........... <100 mg/dL Near Optimal....... 100-129 mg/dL Borderline High.... 130-159 mg/dL High............... 160-189 mg/dL Very High.......... >=190 mg/dL * Source: National Cholesterol Education Program (NCEP) 61 CHEST PAIN,ACS 62 Note: Persistent reduction for 3 months or more in an eGFR <60 mL/min/1.73 m2 defines CKD. Patients with eGFR values >/=60 mL/min/1.73 m2 may also have CKD if evidence of persistent proteinuria is present. The original MDRD equation for estimated GFR is not valid for patients less than 18 years of age. Additional information may be found at www.kdoqi.org. 63 0.0 - 0.045 ng/mL: Normal 0.046 - 0.5 ng/mL: Suggestive 0.6 - 1.5 ng/mL: Consistent 64 Elevated levels of HbA1c suggest the need for more aggressive treatment of glycemia. The [place] Diabetes [employer] recommends that a primary goal of therapy should be a HbA1c of <7% and that physicians should re-evaluate the treatment regimen in patients with HbA1c values consistently >8%. 65 INFCE Result Units: s/co ratio Negative: < 0.8 Indeterminate: 0.8 - 0.9 Positive: > 0.9 The CDC recommends that a positive HCV antibody result be followed up with a HCV Nucleic Acid Amplification test (607102). Performed at: [address] [id number] [employer]: Irina Vitale MD, Phone: [phone] 66 0.0 - 0.045 ng/mL: Normal 0.046 - 0.5 ng/mL: Suggestive 0.6 - 1.5 ng/mL: Consistent 67 0.0 - 0.045 ng/mL: Normal 0.046 - 0.5 ng/mL: Suggestive 0.6 - 1.5 ng/mL: Consistent 68 CHEST PAIN 69 Tests: d-dimer Instructions: thank you Procedures Date CPT Code Description Status Comment 07/04/2018 60866 Asp./Injection major joint Completed 02/21/2018 Diabetic Foot Exam Completed Dr. Cabello 10/25/2017 96032 EKG Interpretation And Report Only Completed 05/23/2017 86745 Echocardiogram Complete Completed 05/23/2017 63329 Stress Test Interpre And Report Only Completed 05/23/2017 55023 Stress Test Physician Super Only Completed 05/23/2017 94227 Myocardial Imaging Tomographic Multiple Completed Study AT Rest Or Stress 02/22/2017 81158 Bronchospasm Provocation Evaluation Multi Completed Spirometric Determinati 02/22/2017 94129 Spirometry Completed Encounters Type Date Location Provider CPT E/M Dx Office Visit 07/04/2018 3:00p Orthopaedic Office Amber Zurita, 39038 M25.561 [facility] M17.11 R26.89 Office Visit 05/29/2018 9:45a Family Medicine Kiersten Powell M.D. 65727 I10 Z12.11 M25.561 E87.5 W01.0xxD Office Visit 04/19/2018 10:00a Family Medicine Kiersten Powell M.D. 58979 Z00.01 Z12.5 Z12.11 I10 E78.5 E55.9 L30.9 R19.7 Z23 Office Visit 03/20/2018 3:30p Family Medicine Kiersten Powell M.D. 41930 R10.31 M25.562 Office Visit 03/15/2018 8:45a Family Medicine Kiersten Powell M.D. 58952 I10 E78.5 E11.42 Office Visit 01/17/2018 3:00p Orthopaedic Office Sam Inman M.D. 23834 M17.11 Office Visit 01/16/2018 3:00p Family Medicine Kiersten Powell M.D. 05195 I10 E78.5 M25.561 F52.21 Office Visit 12/19/2017 2:30p Family Medicine Kiersten Powell M.D. 56685 M25.561 M25.551 Office Visit 10/18/2017 3:15p [facility] Kiersten Serna M.D. 07967 I10 E78.5 M25.551 R19.7 Office Visit 09/01/2017 11:45a [facility] Medicine Kiersten Powell M.D. 09489 M25.551 Office Visit 07/07/2017 11:00a [facility] Medicine Kiersten Powell M.D. 96278 Z23 I10 E78.5 E11.42 M25.551 Z23 Office Visit 06/06/2017 2:00p [facility] Ge Woodward FNP 56579 R07.9 I10 Office Visit 04/06/2017 1:45p [facility] Medicine Kiersten Powell M.D. 06397 I10 R06.02 H91.93 Office Visit 03/16/2017 1:15[place] [address] R06.02 Office Visit 01/31/2017 1:00[place] [address] R06.02 Z78.9 Plan of Care Future Appointment(s):08/01/2018 2:00 pm - Amber Zurita, [facility] at Orthopaedic Bphqyp8208/07/2018 9:00 am - Nando Yang MD at GI07/04/2018 - Amber Zurita, RPACM25.561 Pain in right kneeM17.11 Unilateral primary osteoarthritis, right kneeR26.89 Other abnormalities of gait and mobilityAllComments:The patient opted for a steroid injection and a separate note was dictated as well. I tried to fit him for a hinged upright knee brace, however, when I pulled a large box off the shelf the brace inside was a size medium. It was too small and an extra large was too large. I have ordered a size largeand he will stop by the hospital's DME office. I will reevaluate him in four weeks, sooner with anyproblems or concerns.
--- OUTSIDE RECORDS SUMMARY | 2018-07-10 21:01 | XMS REPORT ---
:1955 External Reference #:[id number] Author Organization [facility] 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 Unavailable Ge Woodward NP Primary Care Physician Unavailable Payers Type Date Identification Numbers Payment Provider Subscriber Medicare Primary Policy Number: [id number] Medicare Max Elizabeth PayID: [id number] [address] [place] [address] Medicaid Policy Number: [id number] Medicaid Max Elizabeth PayID: [id number] [address] [place] [address] Problems Date Description Provider Status Onset: 04/05/2017 [...] Thin its as directed Jenniferl dxe11.9 eigh, LINE SERVICER Glucagon 06/07 Active Kit 1mg 2unit inject as Kheti, Emergency s needed MD Lj Vitamin D 06/06 Active Capsules [id number] 4caps 1 cap by Sherry (Ergocalciferol) mouth [...] Depomedrol 80 Administered Injection mg Dony Zurita [facility] Immunizations CPT Code Status Date Vaccine Lot # [id number] Given 04/19/2018 Pneumovax Injection [id number] Given 07/07/2017 Influenza Virus Vaccine Quadrivalent Iiv4 Split Preser Free Id Vital Signs Date Vital Result Comment 07/04/2018 BP Systolic Sitting Left Arm 152 mmHg BP Diastolic Sitting Left Arm 71 mmHg Body Temperature 97.6 F Heart Rate 61 /min Respiratory Rate 18 /min Height 68.75 inches 5'8.75" Weight 230.38 lb BMI (Body Mass Index) 34.3 kg/m2 BSA (Body Surface Area) 2.19 m2 Council body weight in kilograms 72 O2 % BldC Oximetry 100 % 05/29/2018 BP Systolic 162 mmHg BP Diastolic 72 mmHg Body Temperature 96.1 F Heart Rate 66 /min Respiratory Rate 18 /min Height 68.75 inches 5'8.75" Weight 226.00 lb BMI (Body Mass Index) 33.6 kg/m2 BSA (Body Surface Area) 2.17 m2 Council body weight in kilograms 72 O2 % BldC Oximetry 97 % 04/19/2018 BP Systolic Sitting Left Arm 160 mmHg BP Diastolic Sitting Left Arm 82 mmHg Heart Rate 82 /min Height 68.75 inches 5'8.75" Weight 224.50 lb BMI (Body Mass Index) 33.4 kg/m2 BSA (Body Surface Area) 2.16 m2 Council body weight in kilograms 72 O2 % BldC Oximetry 99 % 03/20/2018 BP Systolic Sitting Left Arm 146 mmHg BP Diastolic Sitting Left Arm 84 mmHg Body Temperature 96.5 F Heart Rate 64 /min Height 65 inches 5'5" Weight 225.00 lb BMI (Body Mass Index) 37.4 kg/m2 BSA (Body Surface Area) 2.08 m2 Council body weight in kilograms 62 03/15/2018 BP Systolic 152 mmHg BP Diastolic 82 mmHg Body Temperature 96.5 F Heart Rate 68 /min Respiratory Rate 20 /min Height 72 inches 6'0" Weight 222.00 lb BMI (Body Mass Index) 30.1 kg/m2 BSA (Body Surface Area) 2.23 m2 Council body weight in kilograms 81 O2 % BldC Oximetry 99 % 01/17/2018 BP Systolic Sitting Right Arm 149 mmHg BP Diastolic Sitting Right Arm 73 mmHg Body Temperature 97.2 F Heart Rate 61 /min Respiratory Rate 18 /min Height 72 inches 6'0" Weight 222.00 lb BMI (Body Mass Index) 30.1 kg/m2 BSA (Body Surface Area) 2.23 m2 Council body weight in kilograms 81 01/16/2018 BP Systolic Sitting Left Arm 140 mmHg BP Diastolic Sitting Left Arm 84 mmHg Height 72 inches 6'0" Weight 222.12 lb BMI (Body Mass Index) 30.1 kg/m2 BSA (Body Surface Area) 2.23 m2 Council body weight in kilograms 81 12/19/2017 BP Systolic 124 mmHg BP Diastolic 80 mmHg Heart Rate 66 /min Height 72 inches 6'0" Weight 215.00 lb BMI (Body Mass Index) 29.2 kg/m2 BSA (Body Surface Area) 2.20 m2 Council body weight in kilograms 81 O2 % BldC Oximetry 99 % 10/18/2017 BP Systolic Sitting Left Arm 162 mmHg BP Diastolic Sitting Left Arm 68 mmHg Heart Rate 84 /min Height 72 inches 6'0" Weight 213.25 lb BMI (Body Mass Index) 28.9 kg/m2 BSA (Body Surface Area) 2.19 m2 Council body weight in kilograms 81 09/01/2017 BP Systolic Sitting Right Arm 124 mmHg BP Diastolic Sitting Right Arm 72 mmHg Heart Rate 49 /min Height 72 inches 6'0" Weight 215.38 lb BMI (Body Mass Index) 29.2 kg/m2 BSA (Body Surface Area) 2.20 m2 Council body weight in kilograms 81 O2 % BldC Oximetry 97 % 07/07/2017 BP Systolic 134 mmHg BP Diastolic 84 mmHg Body Temperature 97.1 F Heart Rate 73 /min Height 72 inches 6'0" Weight 213.00 lb BMI (Body Mass Index) 28.9 kg/m2 BSA (Body Surface Area) 2.19 m2 Council body weight in kilograms 81 O2 % [...] kg/m2 BSA (Body Surface Area) 2.15 m2 Council body weight in kilograms 81 03/16/2017 BP Systolic Sitting Left Arm 104 mmHg BP Diastolic Sitting Left Arm 62 mmHg Heart Rate 92 /min Respiratory Rate 16 /min Height 72 inches 6'0" Weight 210.00 lb BMI (Body Mass Index) 28.5 kg/m2 BSA (Body Surface Area) 2.18 m2 Council body weight in kilograms 81 O2 % BldC Oximetry 99 % 01/31/2017 BP Systolic Sitting Left Arm 112 mmHg BP Diastolic Sitting Left Arm 60 mmHg Heart Rate 86 /min Respiratory Rate 16 /min Height 72 inches 6'0" Weight 216.00 lb BMI (Body Mass Index) 29.3 kg/m2 BSA (Body Surface Area) 2.20 m2 Council body weight in kilograms 81 O2 % [...] Ketone NEGATIVE mg/dL Negative 15 Urine Specific [place] <=1.005 Low 1.010-1.030 15 Urine Blood TRACE [...] 61 Lymph % 29.6 % 20.0-42.0 61 [place] % 8.6 % 0.0-10.0 61 Eo% 4.3 % 0.0-6.6 61 Bas% 0.3 % 0.0-1.1 61 Neut# 3.85 K/uL 1.8-7.0 61 Lymph # 1.99 K/uL 1.0-4.0 61 [place] # 0.58 K/uL 0.0-0.8 61 Eos # [...] 68 Lymph % 25.0 % 20.0-42.0 68 [place] % 7.7 % 0.0-10.0 68 Eo% 2.5 % 0.0-6.6 68 Bas% 0.4 % 0.0-1.1 68 Neut# 4.45 K/uL 1.8-7.0 68 Lymph # 1.73 K/uL 1.0-4.0 68 [place] # 0.53 K/uL 0.0-0.8 68 Eos # [...] D deficiency has been defined by the [place] [employer] and an Endocrine Society practice guideline as a level of serum 25-OH vitamin D less than 20 ng/mL (1,2). The Endocrine Society went on to further define vitamin D insufficiency as a level between 21 and 29 ng/mL (2). 1. IOM ([place] [employer]). 2010. Dietary reference intakes for calcium and D. [place]: The National Academies Press. 2. Lucia MF, Cordelia NC, Gonzalo BEE, et al. Evaluation, treatment, and prevention of vitamin D deficiency: an Endocrine Society clinical practice guideline. JCEM. 2010; 96(7):1911-30. Performed at: - [facility] [id number] Action Installer: Irian Vitale MD, Phone: [phone] 9 THIS ASSAY IS NOT INTENDED A CANCER SCREENING TEST The concentration of PSA in a given specimen, determined with assays from different manufacturers, can vary due to differences in assay methods and reagent specificity. Values obtained from different assay methods cannot be used interchangeably. Method: Siemens [place] Chemiluminescent immunoassay. 10 Note: Persistent reduction for [...] possibility of a parasitic infection Performed at: [facility] [id number] Action Installer: Irina Vitale MD, Phone: [phone] Test not performed 33 Negative for toxigenic C. difficile by PCR 34 Confirmed 35 Confirmed 36 Confirmed 37 Confirmed 38 Confirmed 39 Confirmed Called to and read back by NOTIFIED MEAGAN [id number] Confirmed 41 Confirmed 42 Confirmed 43 [...] for more aggressive treatment of glycemia. The [place] Diabetes Association recommends that a primary goal [...] with a HCV Nucleic Acid Amplification test (804526). Performed at: [address] [id number] [employer] Installer: Irina Vitale MD, Phone: [phone] 66 0.0 - 0.045 ng/mL: Normal 0.046 - 0.5 ng/mL: Suggestive 0.6 - 1.5 ng/mL: Consistent 67 0.0 - 0.045 ng/mL: Normal 0.046 - 0.5 ng/mL: Suggestive 0.6 - 1.5 ng/mL: Consistent 68 CHEST PAIN 69 Tests: d-dimer Instructions: thank you Procedures Date CPT Code Description Status Comment 07/04/2018 64371 Asp./Injection major joint Completed 02/21/2018 Diabetic Foot Exam Completed Dr. Cabello 10/25/2017 36814 EKG Interpretation And Report Only Completed 05/23/2017 09474 Echocardiogram Complete Completed 05/23/2017 91220 Stress Test Interpre And Report Only Completed 05/23/2017 25471 Stress Test Physician Super Only Completed 05/23/2017 23374 Myocardial Imaging Tomographic Multiple Completed Study AT Rest Or Stress 02/22/2017 34258 Bronchospasm Provocation Evaluation Multi Completed Spirometric Determinati 02/22/2017 15886 Spirometry Completed Encounters Type Date Location Provider CPT E/M Dx Office Visit 07/04/2018 3:00p Orthopaedic Office Amber Zurita, [address] [facility] M17.11 R26.89 Office Visit 05/29/2018 9:45a Family Medicine Kiersten Powell M.D. 79504 I10 Z12.11 M25.561 E87.5 W01.0xxD Office Visit 04/19/2018 10:00a Family Medicine Kiersten Powell M.D. 14595 Z00.01 Z12.5 Z12.11 I10 E78.5 E55.9 L30.9 R19.7 Z23 Office Visit 03/20/2018 3:30p Family Medicine Kiersten Powell M.D. 51755 R10.31 M25.562 Office Visit 03/15/2018 8:45a Family Medicine Kiersten Powell M.D. 09721 I10 E78.5 E11.42 Office Visit 01/17/2018 3:00p Orthopaedic Office Sam Inman M.D. 61301 M17.11 Office Visit 01/16/2018 3:00p Family Medicine Kiersten Powell M.D. 78372 I10 E78.5 M25.561 F52.21 Office Visit 12/19/2017 2:30p Family Medicine Kiersten Powell M.D. 04031 M25.561 M25.551 Office Visit 10/18/2017 3:15p [facility] Kiersten Serna M.D. 38120 I10 E78.5 M25.551 R19.7 Office Visit 09/01/2017 11:45a [facility] Medicine Kiersten Powell M.D. 97335 M25.551 Office Visit 07/07/2017 11:00a [facility] Medicine Kiersten Powell M.D. 09915 Z23 I10 E78.5 E11.42 M25.551 Z23 Office Visit 06/06/2017 2:00p [facility] Ge Woodward FNP 39418 R07.9 I10 Office Visit 04/06/2017 1:45p [facility] Medicine Kiersten Powell M.D. 93817 I10 R06.02 H91.93 Office Visit 03/16/2017 1:15[place] [address] R06.02 Office Visit 01/31/2017 1:00[place] [address] R06.02 Z78.9 Plan of Care Future Appointment(s):08/01/2018 2:00 pm - Amber Zurita, [facility] at Orthopaedic Xrftua3308/07/2018 9:00 am - Nando Yang MD at [...]
[2018-07-10 21:18] VITALS: BP 179/70
[2018-07-10] MEDS ORDERED: Amoxicillin/Clavulanate TAB* 875 MG PO ONE ×2 (22:28→22:30)
--- NOTE | 2018-07-10 22:28 | UC ---
Lower Extremity/Ankle HPI - HPI Summary HPI Summary: 62-year-old male comes in with an injury to his right third toe. Earlier this evening he was attempting to take off his shoe and he injured the tip of the toe. The laceration with the bleeding controlled when he got here. He is a diabetic and he only has 2 toes on his right foot. - History of Current Complaint Chief Complaint: UCLaceration Stated Complaint: RIGHT TOE WOUND Time Seen by Provider: 07/10/18 21:38 Pain Intensity: 0 - Allergies/Home Medications Allergies/Adverse Reactions: Allergies Allergy/AdvReac Type Severity Reaction Status Date / Time No Known Allergies Allergy Verified 07/10/18 21:27 Home Medications: Home Medications metFORMIN* [Glucophage 500 MG TAB *] 500 mg PO BID 07/10/18 [History Confirmed 07/10/18] PMH/Surg Hx/FS Hx/Imm Hx Endocrine History: Diabetes - Surgical History Surgical History: Yes Surgery Procedure, Year, and Place: TRACHEOSTOMY. GASTROSTOMY. AMPUTATION TOES RIGHT FOOT - Family History Known Family History: Positive: Unknown - not in medical record provided - Social History Alcohol Use: None Alcohol Amount: h/o ETOH abuse at least 2+ years Substance Use Type: None Smoking Status (MU): Never Smoked Tobacco Review of Systems Constitutional: Negative Skin: Other - Laceration on the third right toe has bleeding controlled upon arrival to clinic. ENT: Negative Respiratory: Negative Cardiovascular: Negative Gastrointestinal: Negative Motor: Negative Neurovascular: Negative Musculoskeletal: Other: - Patient has only 2 toes on his right foot Neurological: Negative Psychological: Negative Is Patient Immunocompromised?: No All Other Systems Reviewed And Are Negative: Yes Physical Exam Triage Information Reviewed: Yes Appearance: Well-Appearing, No Pain Distress, Well-Nourished Vital Signs: Initial Vital Signs Temp 97.4 F 07/10/18 21:07 Pulse 61 07/10/18 21:07 Resp 17 07/10/18 21:07 BP 179/70 07/10/18 21:07 Pulse Ox 100 07/10/18 21:07 Vital Signs Reviewed: Yes Eye Exam: Normal Eyes: Positive: Conjunctiva Clear Neck exam: Normal Neck: Positive: Supple Respiratory: Positive: No respiratory distress Musculoskeletal: Positive: Other: - The right foot has 2 toes. The third toe has a laceration at the base of the nail and onto the medial aspect. The laceration at the base of the nail is not suturable. The laceration on the medial aspect is partial-thickness and also not suturable. Neurological Exam: Normal Neurological: Positive: Alert Psychological Exam: Normal Skin: Positive: Other - . Lower Extremity Course/Dx - Course Course Of Treatment: The laceration was nonsuturable its position and part of it being partial thickness. I did not see a fracture on the x-ray radiologist reading is pending. I will start the patient on Augmentin and he will have dressing changes with antibiotic ointment. Follow up with primary care doctor recheck here sooner if worse - Differential Dx/Diagnosis Provider Diagnoses: Right third toe laceration Discharge - Sign-Out/Discharge Documenting (check all that apply): Patient Departure All imaging exams completed and their final reports reviewed: No - Discharge Plan Condition: Stable Disposition: HOME Prescriptions: Amoxicillin/Clavulanate TAB* [Augmentin TAB 875*] 875 mg PO BID #18 tab Patient Education Materials: Laceration (ED) Referrals: Kiersten Powell MD [Primary Care Provider] - Additional Instructions: FOLLOW UP WITH YOUR DOCTOR. GET RECHECKED FOR ANY WORSENING OF YOUR CONDITION OR QUESTIONS OR CONCERNS. - Billing Disposition and Condition Condition: STABLE Disposition: Home
[2018-07-10] MEDS ORDERED: Mupirocin 2% OINT* TUBE TOPICAL ONE (22:29)
--- NOTE | 2018-07-11 07:30 | RAD ---
INDICATION: Right third toe injury. TECHNIQUE: 3 views of the right third toe were obtained. FINDINGS: There is diffuse soft tissue swelling. 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 There is dislocation of the third metatarsal phalangeal joint with bony changes suggesting that this may be chronic. No fracture is seen. The results of this examination were called to the urgent care charge nurse Adriana. IMPRESSION: DISLOCATION OF THE THIRD METATARSAL PHALANGEAL JOINT WITH BONY CHANGES SUGGESTING THAT THIS MAY BE CHRONIC. RECOMMEND CLINICAL CORRELATION. NO FRACTURE IS SEEN. R3
--- NOTE | 2018-07-11 12:58 | UC ---
- Progress Note Progress Note: THE TOE X-RAY READ BY RADIOLOGY. THERE IS A TOE DISLOCATION WHICH IS CHRONIC BY HISTORY Discharge - Sign-Out/Discharge Documenting (check all that apply): Patient Departure All imaging exams completed and their final reports reviewed: Yes - Discharge Plan Condition: Stable Disposition: HOME Prescriptions: Amoxicillin/Clavulanate TAB* [Augmentin TAB 875*] 875 mg PO BID #18 tab Patient Education Materials: Laceration (ED) Referrals: Kiersten Powell MD [Primary Care Provider] - Additional Instructions: FOLLOW UP WITH YOUR DOCTOR. GET RECHECKED FOR ANY WORSENING OF YOUR CONDITION OR QUESTIONS OR CONCERNS. - Billing Disposition and Condition Condition: STABLE Disposition: Home
== END 2018-07-10 22:40 | disposition home or self-care (01) ==
LOC: UCCORT 19:56
DX: M24.477 Recurrent dislocation, right toe(s) (principal); S91.114A Laceration without foreign body of right lesser toe(s) without damage to nail, initial encounter; E11.9 Type 2 diabetes mellitus without complications; F10.11 Alcohol abuse, in remission; X58.XXXA Exposure to other specified factors, initial encounter; Y92.9 Unspecified place or not applicable; Z79.84 Long term (current) use of oral hypoglycemic drugs; Z89.421 Acquired absence of other right toe(s)
CPT/HCPCS: 99213; A9270-GY; G0463

== ENCOUNTER 2018-10-06 09:33 | Emergency (ER) | payer MEDICARE, MEDICAID ==
[2018-10-06 11:44] VITALS: BP 125/60
--- NOTE | 2018-10-06 11:57 | UC ---
Respiratory Complaint HPI - HPI Summary HPI Summary: patient is here with care provider from [facility]---he has had a cough recently and they go no have an order for medication for cough--no fever, no sob no distress no change in usual self or activities--did have a flu vaccine this year and others in home with similar issues - History of Current Complaint Chief Complaint: UCRespiratory Stated Complaint: COUGH (DIABETIC) Time Seen by Provider: 10/06/18 11:48 Hx Obtained From: Patient Onset/Duration: Gradual Onset, Lasting Days, Still Present Timing: Intermittent Episodes Pain Intensity: 0 Pain Scale Used: 0-10 Numeric Character: Cough: Nonproductive Aggravating Factors: Nothing Alleviating Factors: Nothing Associated Signs And Symptoms: Positive: Nasal Congestion - Allergies/Home Medications Allergies/Adverse Reactions: Allergies Allergy/AdvReac Type Severity Reaction Status Date / Time lactose Allergy GI Upset Verified 10/06/18 11:41 Home Medications: Home Medications ARIPiprazole TAB* [Abilify 15 MG TAB*] 15 mg PO DAILY 10/06/18 [History Confirmed 10/06/18] Acetaminophen [Tylenol Extra Strength] 500 mg PO BID PRN 10/06/18 [History Confirmed 10/06/18] Ammonium Lactate 12% [Lac-Hydrin 12 %] 12 % EX BID 10/06/18 [History Confirmed 10/06/18] Aspirin [Aspirin Childrens 81 MG] 81 mg PO DAILY 10/06/18 [History Confirmed ] Atorvastatin* [Lipitor*] 10 mg PO DAILY 10/06/18 [History Confirmed 10/06/18] Gabapentin CAP(*) [Neurontin 300 CAP(*)] 300 mg PO BEDTIME 10/06/18 [History Confirmed 10/06/18] Insulin Detemir [Levemir Flextouch] 54 unit SC BEDTIME 10/06/18 [History Confirmed 10/06/18] Insulin NPH Hum/Reg Insulin Hm [Novolin 70-30 Flexpen] 0 units SUBCUT TID [History Confirmed 10/06/18] Lisinopril TAB* [Prinivil TAB*] 40 mg PO DAILY 10/06/18 [History Confirmed 10/06] Melatonin 5 mg PO BEDTIME 10/06/18 [History Confirmed 10/06/18] Metoprolol Tartrate TAB* [Lopressor TAB*] 50 mg PO BID 10/06/18 [History Confirmed 10/06/18] hydrOXYzine HCL TAB* [Atarax 25 MG TAB*] 25 mg PO BID 10/06/18 [History Confirmed 10/06/18] lamoTRIgine TAB(*) [LaMICtal TAB(*)] 50 mg PO TID 10/06/18 [History Confirmed ] metFORMIN* [Glucophage 500 MG TAB *] 500 mg PO BID 10/06/18 [History Confirmed 10/06/18] tiZANidine TAB* [Zanaflex TAB*] 4 mg PO TID PRN 10/06/18 [History Confirmed ] PMH/Surg Hx/FS Hx/Imm Hx Previously Healthy: No Endocrine History: Diabetes Cardiovascular History: Hypertension Psychological History: Depression - Surgical History Surgical History: Yes Surgery Procedure, Year, and Place: TRACHEOSTOMY. GASTROSTOMY. AMPUTATION TOES RIGHT FOOT - Family History Known Family History: Positive: Unknown - not in medical record provided - Social History Occupation: Disabled Lives: Correction Alcohol Use: None Alcohol Amount: h/o ETOH abuse at least 2+ years Substance Use Type: None Smoking Status (MU): Never Smoked Tobacco Review of Systems All Other Systems Reviewed And Are Negative: Yes Constitutional: Positive: Negative Skin: Positive: Negative Eyes: Positive: Negative ENT: Positive: Negative Respiratory: Positive: Negative Cardiovascular: Positive: Negative Gastrointestinal: Positive: Negative Genitourinary: Positive: Negative Motor: Positive: Negative Neurovascular: Positive: Negative Musculoskeletal: Positive: Negative Neurological: Positive: Negative Psychological: Positive: Negative Is Patient Immunocompromised?: Yes Physical Exam Triage Information Reviewed: Yes Appearance: Well-Appearing, No Pain Distress, Well-Nourished Vital Signs: Initial Vital Signs Temp 97 F 10/06/18 11:40 Pulse 66 10/06/18 11:40 Resp 18 10/06/18 11:40 BP 125/60 10/06/18 11:40 Pulse Ox 100 10/06/18 11:40 Vital Signs Reviewed: Yes Eye Exam: Normal Eyes: Positive: Conjunctiva Clear ENT Exam: Normal ENT: Positive: Normal ENT inspection, Hearing grossly normal, Pharynx normal, Nasal drainage, TMs normal, Uvula midline. Negative: Tonsillar swelling, Tonsillar exudate, Trismus, Muffled voice, Hoarse voice, Dental tenderness, Sinus tenderness Dental Exam: Normal Neck exam: Normal Neck: Positive: Supple, Nontender, No Lymphadenopathy Respiratory Exam: Normal Respiratory: Positive: Chest non-tender, Lungs clear, Normal breath sounds, No respiratory distress, No accessory muscle use Cardiovascular Exam: Normal Cardiovascular: Positive: RRR, No Murmur, Pulses Normal, Brisk Capillary Refill Musculoskeletal Exam: Normal Musculoskeletal: Positive: Strength Intact, ROM Intact, No Edema Neurological Exam: Normal Neurological: Positive: Alert, Muscle Tone Normal Psychological Exam: Normal Skin Exam: Normal UC Diagnostic Evaluation - Laboratory O2 Sat by Pulse Oximetry: 100 Respiratory Course/Dx - Course Course Of Treatment: tessalon, sugar free cough drops increase fluids follow with pcp-- - Differential Dx/Diagnosis Provider Diagnosis: URI (upper respiratory infection) Discharge - Sign-Out/Discharge Documenting (check all that apply): Patient Departure All imaging exams completed and their final reports reviewed: No Studies - Discharge Plan Condition: Stable Disposition: HOME Prescriptions: Benzonatate CAP* [Tessalon 100 MG CAP*] 100 mg PO TID PRN #30 cap PRN Reason: Cough Eucalyptus/Menthol [Chaudhari Cough Drops] 1 eliazar MT SEE INSTRUCTIONS PRN #30 eliazar PRN Reason: cough/irratated throat Patient Education Materials: Upper Respiratory Infection (DC) Referrals: Kiersten Powell MD [Primary Care Provider] - If Needed - Billing Disposition and Condition Condition: STABLE Disposition: Home - Attestation Statements Provider Attestation: I was available for consult. This patient was seen by the MICHELE. The patient was not presented to, seen by, or examined by me. EK
== END 2018-10-06 12:25 | disposition home or self-care (01) ==
LOC: UCCORT 09:33
DX: J06.9 Acute upper respiratory infection, unspecified (principal); I10 Essential (primary) hypertension; E11.9 Type 2 diabetes mellitus without complications; Z79.4 Long term (current) use of insulin; F32.9 Major depressive disorder, single episode, unspecified
CPT/HCPCS: 99212; G0463

== ENCOUNTER 2018-11-30 16:56 | Emergency (ER) | payer MEDICARE, MEDICAID ==
--- OUTSIDE RECORDS SUMMARY | 2018-11-30 18:12 | XMS REPORT | Continuity of Care Document ---
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 Active Onset: 04/06/2017 Diabetic peripheral neuropathy Kiersten Powell M.D. Active associated with type 2 diabetes mellitus Onset: 12/19/2017 Knee pain Kiersten Powell M.D. Active Onset: 12/19/2017 Arthralgia of the pelvic region and Kiersten Powell M.D. Active thigh Onset: 01/17/2018 Localized, primary osteoarthritis Sam Inman M.D. 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 Retired Work Status Disabled Hand Dominance Right-handed Tobacco Use Start: Unknown Never Smoked Cigarettes Tobacco Use Start: Unknown Never Smoked Cigars Tobacco Use Start: Unknown Never Smoked A Pipe Smoking Status Reviewed: 11/13/18 Never Smoked A Pipe Smokeless Tobacco Never Used Smokeless Tobacco ETOH Use Has consumed alcohol in the QUIT 2016 past Recreational Drug Use Former Drug User QUIT 2016 Tobacco Use Start: Unknown Patient denies history of smoking Exercise Type/Frequency Exercises regularly Allergies, Adverse Reactions, Alerts Date Description Reaction Status Severity Comments 01/31/2017 NKDA Active 01/31/2017 Lactose Active Medications Medication Date Status Form Strength Qnty SIG Indications Ordering Provider Magnesium 11/01 Active Solution 1.745GM/3 296ml drink the D12.5 Trey Citrate 0ML whole bottle , Nando, at 12 pm day before examination Dulcolax 11/01 Active Tablets 5mg 4tabs [address] josefina pizarro 8pm Nando, the day MD before the procedure Patient May Stop 10/23 Active Patient may Dona, Diabetic in stop Diabetic MD Alex DM sarah DM Diabetic in 10/08 Active Liquid 100-10mg/ 236ml 10 mL PO q4h Dona DM 5ML prn MD Alex Acetaminophen 09/11 Active Tablets 500mg 60tab 1 tab by Dona s mouth twice a MD Alex day. No more than 3000mg in total with other prn order in one day. Sildenafil 08/13 Active Tablets 20mg 9tabs one by mouth N52.9 Clune, an hour prior Jenniferl to eigh, TRACK MAINTAINER intercourse if not effective take 2 at next attempt Unistik 2 07/12 Active Misc 120un use four E11.42 Clune, Comfort its times daily Jenniferl for blood eigh, TRACK MAINTAINER sugar testing Hydrocortisone 04/19 Active Cream 2.5% 20uni Apply To L30.9 ts Anterior Kiersten, Right Leg 3 M.D. Times A Day as Needed (Itching) Metoprolol 04/19 Active Tablets 50mg 180ta 1 by mouth Dona Tarwilian bs twice a day MD Alex Lisinopril 03/15 Active Tablets 40mg 30tab 1 by mouth I10 s every day Sun Burch Tizanidine HCL 09/22 Active Tablets 4mg 30tab Take 1 Tablet s By Mouth Kiersten, Every 8 Hours M.D. as Needed Gabapentin 09/01 Active Capsules 300mg 90cap 1 tab by M25.551 Sherry s mouth QHS Sun Burch Atorvastatin 07/07 Active Tablets 10mg 30tab 1 By Mouth Sherry, s Every Day Sun Burch Lancets Ultra 06/20 Active Misc 100un test sugars Clune, its as directed Suleman dxe11.9 eigh, TRACK MAINTAINER Glucagon 06/07 Active Kit 1mg 2unit inject as Pham, s needed MD Lj Metformin HCL Active Tablets 500mg 1 by mouth Unknown /0000 twice a day Melatonin Active Capsules 5mg 1 by mouth Unknown /0000 every at bedtime as needed Levemir Active Solution 100Unit/M 54 units at Unknown /0000 L hs Hydroxyzine HCL Active Tablets 25mg 1 tab PO bid Niko, / MD Daniel Glucose Active Chewtabs 4gm 1 tab by Unknown /0000 mouth as needed Aripiprazole Active Tablets 15mg take 1 tab po Unknown /0000 once a day Lamotrigine Active Tablets 25mg take two Unknown /0000 tablets by mouth three times a day Lac-Hydrin Active Lotion 12% apply to Unknown /0000 affected area 2 times a day Ketostix 2880 Active use as Unknown /0000 directed. max daily dose: 10 dx:E11.65 Novolog Flexpen Active Solution 100Unit/M use as Unknown /0000 Pen-Injec L directed t Eucalyptus Active a/d Unknown /Menthol Cough /0000 Drops Hydrocortisone Active Cream 2.5 a/d Unknown Cream / Acetaminophen Active Tablets 500mg a/d Unknown Extra Strength / Acetaminophen 09/10 Hx Tablets 500mg 120ta 1 tab by M54.5 Dona, bs mouth every 6 MD Alex - hours as 11/01 needed. take more than 1 tab a day, no more than 4 tabs a day Dulcolax 08/07 Hx Tablets 5mg 4tabs [address] taken a 8pm , Nando, - the day 11/01 before the procedure Citroma 08/07 Hx Solution 1.745GM/3 296ml drink 1 R19.7 0ML bottle at , Nando, - 12pm 11/01 (noon)the day before the procedure Golytely 08/07 Hx Solution 236gm 4000m drink half R19.7 Rec l the evening , Nando, - before and 11/01 half the morning of the procedure (1 cup every 10') Aspirin 04/19 Hx Tablets 81mg 90tab 1 by mouth Z00.01 Crissy, DR grace every day Jenniferl - eigh, TRACK MAINTAINER 11/01 Lisinopril 01/16 Hx Tablets 30mg 30tab 1 by mouth I10 Sherry, s every day Kiersten - M.D. 03/15 Sildenafil 01/16 Hx Tablets 50mg 5tabs 1 tab by F52.21 Sherry, mouth 1 hour Kiersten, - before sexual M.D. 04/19 activity Baclofen 09/19 Hx Tablets 10mg 60tab take 1 tablet Sherry, s by mouth 8H Kiersten, - prn muscle M.D. 09/22 spasms Unistik CZT 09/19 Hx 100un Test Sugars Sherry, Comfort its as Directed Kane Burch - M.D. 04/19 Tizanidine HCL 09/12 Hx Tablets 4mg 30tab Take 1 Tablet Sherry s By Mouth Kiersten, - Every 8 Hours M.D. 09/19 as Needed Acetaminophen 07/07 Hx Capsules 500mg 180ca 2 caps by Sherry, ps mouth q8 as Kiersten, - needed pain M.D. 07/07 mdd=3g Acetaminophen 07/07 Hx Tablets 500mg 180ta 2 tabs by Crissy, bs mouth every 4 Jenniferl - hours as kristie TRACK MAINTAINER 09/10 needed pain, mdd=3g Acetaminophen 06/07 Hx Tablets 325mg 2 tablets by Pham, mouth bid by MD Lj - mouth as 07/07 needed for paini Vitamin D 06/06 Hx Capsules [id number] 4caps 1 cap by Sherry, (Ergocalciferol) mouth every Kiersten, - week M.D. 09/11 Metamucil Smooth 05/23 Hx Powder 58.6% 1Bott 1 tablespoon Sherry, le in 8oz of Kiersten, - water tid for M.D. 04/19 constipation Lisinopril 04/06 Hx Tablets 20mg 30tab 1 by mouth I10 s every day Kiersten, - M.D. 01/16 Amlodipine Hx Tablets 10mg 1 by mouth Unknown Besylate /0000 every day - 04/06 Abilify Hx Tablets 15mg 1 PO Daily Unknown [...] every day....has samples of the pen Novolog 00 Hx Solution 100Unit/M sliding scale Unknown /0000 [...] /0000 Tablet By - Mouth Every 04/19 /2017 Atorvastatin Hx Tablets 20mg 1 by mouth Unknown Calcium /0000 every day - 07/07 Robaxin Hx Tablets 500mg 120ta 1 q8hr as Sherry, /0000 bs needed Jay Burch M.D. 09/12 Mobic Hx Tablets 7.5mg 1 by mouth Unknown twice a day - 09/01 Doxycycline Hx 100mg 1 cap po bid Unknown x 14 days - 09/12 Lamotrigine Hx 25mg 2 tabs tid Unknown - 03/20 Metoprolol Hx Tablets 25mg 180ta 1 by mouth Sherry, Tartrate / bs twice a day Jay Burch M.D. 04/19 Liquitears Hx Solution 1.4% instill 1 Unknown drop into - both eyes as 04/19 Medications Administered in Office Medication Date Status Form Strength Qnty SIG Indications Ordering Provider Methylprednisolone 07/04 Administered Injection Yudith Amber (Depomedrol) 80mg S., RPAC injection Immunizations CPT Code Status Date Vaccine Lot # [id number] Given 04/19/2018 Pneumovax Injection [id number] Given 07/07/2017 Influenza Virus Vaccine Quadrivalent Iiv4 Split Preser Free Id Vital Signs Date Vital Result Comment 11/13/2018 12:59pm BP Systolic 138 mmHg BP Diastolic 82 mmHg Heart Rate 62 /min Respiratory Rate 18 /min Height 68.75 inches 5'8.75" Weight 229.25 lb BMI (Body Mass Index) 34.1 kg/m2 BSA (Body Surface Area) 2.18 m2 [place] body weight in kilograms 72 kg O2 % BldC Oximetry 98 % Ra 11/01/2018 2:30pm BP Systolic Sitting Left Arm 152 mmHg BP Diastolic Sitting Left Arm 70 mmHg Heart Rate 61 /min Respiratory Rate 16 /min Height 68.75 inches 5'8.75" Weight 181.00 lb BMI (Body Mass Index) 26.9 kg/m2 BSA (Body Surface Area) 1.97 m2 [place] body weight in kilograms 72 kg O2 % BldC Oximetry 98 % 09/10/2018 11:18am BP Systolic 124 mmHg BP Diastolic 72 mmHg Body Temperature 95.7 F Heart Rate 72 /min Respiratory Rate 18 /min Height 68.75 inches 5'8.75" Weight 229.00 lb BMI (Body Mass Index) 34.1 kg/m2 BSA (Body Surface Area) 2.18 m2 [place] body weight in kilograms 72 kg O2 % BldC Oximetry 99 % 08/13/2018 1:49pm BP Systolic 126 mmHg BP Diastolic 74 mmHg Heart Rate 70 /min Respiratory Rate 18 /min Height 68.75 inches 5'8.75" Weight 235.00 lb BMI (Body Mass Index) 35.0 kg/m2 BSA (Body Surface Area) 2.21 m2 [place] body weight in kilograms 72 kg 08/07/2018 9:16am BP Systolic Sitting Left Arm 138 mmHg BP Diastolic Sitting Left Arm 82 mmHg Heart Rate 58 /min Respiratory Rate 16 /min Height 68.75 inches 5'8.75" Weight 231.00 lb BMI (Body Mass Index) 34.4 kg/m2 BSA (Body Surface Area) 2.19 m2 [place] body weight in kilograms 72 kg 08/01/2018 2:06pm BP Systolic 128 mmHg BP Diastolic 62 mmHg Body Temperature 98.0 F Heart Rate 61 /min Height 68.75 inches 5'8.75" Weight 230.00 lb BMI (Body Mass Index) 34.2 kg/m2 BSA (Body Surface Area) 2.19 m2 [place] body weight in kilograms 72 kg O2 % BldC Oximetry 98 % Pain Level 0 07/27/2018 2:44pm BP Systolic Sitting Left Arm 118 mmHg BP Diastolic Sitting Left Arm 78 mmHg Body Temperature 97.3 F Heart Rate 63 /min Respiratory Rate 18 /min Height 68.75 inches 5'8.75" Weight 230.25 lb BMI (Body Mass Index) 34.2 kg/m2 BSA (Body Surface Area) 2.19 m2 [place] body weight in kilograms 72 kg O2 % BldC Oximetry 98 % 07/13/2018 2:32pm BP Systolic 122 mmHg BP Diastolic 80 mmHg Body Temperature 96.6 F Heart Rate 65 /min Respiratory Rate 18 /min Height 68.75 inches 5'8.75" Weight 230.00 lb BMI (Body Mass Index) 34.2 kg/m2 BSA (Body Surface Area) 2.19 m2 [place] body weight in kilograms 72 kg O2 % BldC Oximetry 99 % 07/04/2018 3:04pm BP Systolic Sitting Left Arm 152 mmHg BP Diastolic Sitting Left Arm 71 mmHg Body Temperature 97.6 F Heart Rate 61 /min Respiratory Rate 18 /min Height 68.75 inches 5'8.75" Weight 230.38 lb BMI (Body Mass Index) 34.3 kg/m2 BSA (Body Surface Area) 2.19 m2 [place] body weight in kilograms 72 kg O2 % BldC Oximetry 100 % 05/29/2018 9:47am BP Systolic 162 mmHg BP Diastolic 72 mmHg Body Temperature 96.1 F Heart Rate 66 /min Respiratory Rate 18 /min Height 68.75 inches 5'8.75" Weight 226.00 lb BMI (Body Mass Index) 33.6 kg/m2 BSA (Body Surface Area) 2.17 m2 [place] body weight in kilograms 72 kg O2 % BldC Oximetry 97 % 04/19/2018 10:05am BP Systolic Sitting Left Arm 160 mmHg BP Diastolic Sitting Left Arm 82 mmHg Heart Rate 82 /min Height 68.75 inches 5'8.75" Weight 224.50 lb BMI (Body Mass Index) 33.4 kg/m2 BSA (Body Surface Area) 2.16 m2 [place] body weight in kilograms 72 kg O2 % BldC Oximetry 99 % 03/20/2018 4:07pm BP Systolic Sitting Left Arm 146 mmHg BP Diastolic Sitting Left Arm 84 mmHg Body Temperature 96.5 F Heart Rate 64 /min Height 65 inches 5'5" Weight 225.00 lb BMI (Body Mass Index) 37.4 kg/m2 BSA (Body Surface Area) 2.08 m2 [place] body weight in kilograms 62 kg 03/15/2018 8:58am BP Systolic 152 mmHg BP Diastolic 82 mmHg Body Temperature 96.5 F Heart Rate 68 /min Respiratory Rate 20 /min Height 72 inches 6'0" Weight 222.00 lb BMI (Body Mass Index) 30.1 kg/m2 BSA (Body Surface Area) 2.23 m2 [place] body weight in kilograms 81 kg O2 % BldC Oximetry 99 % 01/17/2018 3:23pm BP Systolic Sitting Right Arm 149 mmHg BP Diastolic Sitting Right Arm 73 mmHg Body Temperature 97.2 F Heart Rate 61 /min Respiratory Rate 18 /min Height 72 inches 6'0" Weight 222.00 lb BMI (Body Mass Index) 30.1 kg/m2 BSA (Body Surface Area) 2.23 m2 [place] body weight in kilograms 81 kg 01/16/2018 3:18pm BP Systolic Sitting Left Arm 140 mmHg BP Diastolic Sitting Left Arm 84 mmHg Height 72 inches 6'0" Weight 222.12 lb BMI (Body Mass Index) 30.1 kg/m2 BSA (Body Surface Area) 2.23 m2 [place] body weight in kilograms 81 kg 12/19/2017 2:18pm BP Systolic 124 mmHg BP Diastolic 80 mmHg Heart Rate 66 /min Height 72 inches 6'0" Weight 215.00 lb BMI (Body Mass Index) 29.2 kg/m2 BSA (Body Surface Area) 2.20 m2 [place] body weight in kilograms 81 kg O2 % BldC Oximetry 99 % 10/18/2017 3:35pm BP Systolic Sitting Left Arm 162 mmHg BP Diastolic Sitting Left Arm 68 mmHg Heart Rate 84 /min Height 72 inches 6'0" Weight 213.25 lb BMI (Body Mass Index) 28.9 kg/m2 BSA (Body Surface Area) 2.19 m2 [place] body weight in kilograms 81 kg 09/01/2017 12:06pm BP Systolic Sitting Right Arm 124 mmHg BP Diastolic Sitting Right Arm 72 mmHg Heart Rate 49 /min Height 72 inches 6'0" Weight 215.38 lb BMI (Body Mass Index) 29.2 kg/m2 BSA (Body Surface Area) 2.20 m2 [place] body weight in kilograms 81 kg O2 % BldC Oximetry 97 % 07/07/2017 11:01am BP Systolic 134 mmHg BP Diastolic 84 mmHg Body Temperature 97.1 F Heart Rate 73 /min Height 72 inches 6'0" Weight 213.00 lb BMI (Body Mass Index) 28.9 kg/m2 BSA (Body Surface Area) 2.19 m2 [place] body weight in kilograms 81 kg O2 % BldC Oximetry 99 % 06/06/2017 2:20pm BP Systolic 140 mmHg BP Diastolic 88 mmHg Heart Rate 73 /min Weight 210.00 lb with boot on 04/06/2017 1:49pm BP Systolic 118 mmHg BP Diastolic 72 mmHg Body Temperature 96.5 F Heart Rate 98 /min Height 72 inches 6'0" Weight 205.00 lb BMI (Body Mass Index) 27.8 kg/m2 BSA (Body Surface Area) 2.15 m2 [place] body weight in kilograms 81 kg 03/16/2017 1:04pm BP Systolic Sitting Left Arm 104 mmHg BP Diastolic Sitting Left Arm 62 mmHg Heart Rate 92 /min Respiratory Rate 16 /min Height 72 inches 6'0" Weight 210.00 lb BMI (Body Mass Index) 28.5 kg/m2 BSA (Body Surface Area) 2.18 m2 [place] body weight in kilograms 81 kg O2 % BldC Oximetry 99 % 01/31/2017 12:56pm BP Systolic Sitting Left Arm 112 mmHg BP Diastolic Sitting Left Arm 60 mmHg Heart Rate 86 /min Respiratory Rate 16 /min Height 72 inches 6'0" Weight 216.00 lb BMI (Body Mass Index) 29.3 kg/m2 BSA (Body Surface Area) 2.20 m2 [place] body weight in kilograms 81 kg O2 % BldC Oximetry 98 % Results Test Date Facility Test Result H/L Range Note Laboratory test 09/10/[address] Slide Review (SEE NOTE) 1 , 2 finding [address] [place] [address] [phone] Urine Culture 09/10/2018 [facility] Urine Culture MIXED URETHRAL [address] [place] [address] F <SEE NOTE> [place] [address] [phone] Quantity < 10,000 CFU/mL Ua RFX Micro & Culture 09/10/[address] [place] [address] [place] [address] [phone] Urine Clarity CLEAR Clear Urine Glucose - Dipstick 250 mg/dL High Negative Urine Bilirubin - Dipstick NEGATIVE Negative Urine Ketone NEGATIVE mg/dL Negative Urine Specific [place] 1.010 N 1.010-1.030 Urine Blood NEGATIVE Negative Urine PH 6.0 Low 6.5-7.5 Urine Protein - Dipstick NEGATIVE mg/dL Negative Urine Urobilinogen - Dipstick 0.2 E.U./dL N 0.2-1.0 Urine Nitrite - Dipstick NEGATIVE Negative Urine Leuk Esterase NEGATIVE Negative Source: URINE, CLEAN CAT <SEE NOTE> 4 CBC W/Automated Diff 09/10/[address] White Blood 7.1 K/uL N 3.4-10.[address] [place] [address] [place] [address] [phone] Red Blood Count 4.13 M/uL Low 4.20-5.80 Hemoglobin 11.8 gm/dL Low 12.8-17.0 Hematocrit 37.5 % Low 38.0-48.0 Mean Cell Volume 90.8 fl N 80.0-96.0 Mean Corpuscular HGB 28.6 pg N 27.0-33.0 Mean Corpuscular HGB Conc 31.5 g/dL Low 31.7-36.0 Platelet Count 127 K/uL Low 155-360 Red Cell Distri Width SD 41.5 fl N 36-51 Red Cell Distri Width %CV 13.0 % N 11.6-15.8 Mean Platelet Volume 13.4 fL High 6.6-10.6 Neut% 63.1 % N 33.0-73.0 Lymph % 27.0 % N 20.0-42.0 Worth % 7.4 % N 0.0-10.0 Eo% 2.2 % N 0.0-6.6 Bas% 0.3 % N 0.0-1.1 Neut# 4.50 K/uL N 1.8-7.0 Lymph # 1.93 K/uL N 1.0-4.0 Worth # 0.53 K/uL N 0.0-0.8 Eos # 0.16 K/uL N 0.0-0.5 Baso # 0.02 K/uL N 0.0-0.1 LDL Cholesterol Profile 09/10/[address] Cholesterol 77 mg/dL <200 5 [address] [place], [place] [id number] [phone] Triglycerides 122 mg/dL <150 6 HDL Cholesterol 33 mg/dL Low >40 7 LDL-Cholesterol 20 mg/dL < 100 8 Glycohemoglobin 09/10/[address] Glycohemoglobin 6.9 % High 4.2-6.3 [address] [place] [address] (A1c) [place], [place] [id number] [phone] eAG 151 mg/dL Comprehensive Metabolic 09/10/[address] Glucose 266 mg/dL High 74-[address] [place] [id number] [phone] BUN 30 mg/dL High 7-18 Creatinine 1.3 mg/dL N 0.6-1.3 Glom Filtration Rate, Estimate 59 mL/min >60 If >60 mL/min >60 10 BUN/Creat 23.0 ratio Sodium 139 mmol/L N 136-145 Potassium 5.3 mmol/L High 3.5-5.1 Chloride 108 mmol/L High 98-107 Carbon Dioxide 27 mmol/L N 21-32 Anion Gap 4 mEq/L Low 8-16 Calcium 8.7 mg/dL N 8.5-10.1 Total Protein 8.0 g/dL N 6.4-8.2 Albumin 3.7 g/dL N 3.4-5.0 Globulin 4.3 g/dL N 1.9-4.3 Alb/Glob 0.9 ratio Bilirubin,Total 0.4 mg/dL N 0.2-1.0 Sgot/Ast 18 U/L N 15-37 SGPT/Alt 43 U/L N 12-78 Alkaline Phosphatase 122 U/L High 45-117 Celiac Disease 08/07/2018 [facility] Immunoglobulin A 248 mg/dL 61-437 11 Comp PNL [address] [place], [place] [id number] [phone] Antigliadin Abs, IgG 6 units 0-19 12 Antigliadin Abs, IgA 6 units 0-19 13 Endomysial IgA Antibody Negative Negative t-Transglutaminase IgA <2 U/mL 0-3 14 t-Transglutaminase IgG <2 U/mL 0-5 15 Iron And Tibc Serum 08/07/2018 [facility] Serum Iron 104 g/dL N 65-175 [address] [place], [place] [id number] [phone] Total Iron Binding Capacity 293 g/dL N 250-450 Transferrin %Saturation 35 % N 12-57 Laboratory test finding 08/07/2018 [facility] Ferritin 136 ng/mL N 26-388 [address] [place], [place] [address] [phone] Antinuclear Antibodies, Ifa Negative . 16 Hepatitis C Virus Rna (PCR)-QL Negative Negative 17 Laboratory test 08/07/2018 [facility] Hepatitis A Negative Negative finding [address] [facility] Antibody -IgM [place], [place] [id number] [phone] Hepatitis A AB, Total Negative Negative Hepatitis B Core Antibody-IgM Negative Negative 18 Hep B Core AB Total Negative Negative Hepatitis C Antibody < 0.1 s/corat 0.0-0.9 19 Protein 08/07/2018 [facility] Protein,Total,Serum 6.7 6.0-8.[address] g/dL Serum [place], [place] [id number] [phone] Albumin 3.4 g/dL 2.9-4.4 Dgmnp-4-Xkddwrse 0.2 g/dL 0.0-0.4 Dmnci-9-Wmjndmem 0.9 g/dL 0.4-1.0 Beta Globulin 1.0 g/dL 0.7-1.3 Gamma Globulin 1.2 g/dL 0.4-1.8 M-Mark Anthony Not Observed g/dL Not Observed Globulin, Total 3.3 g/dL 2.2-3.9 A/G Ratio 1.0 0.7-1.7 Please Note: (SEE NOTE) 20 P E Interpretation, Serum (SEE NOTE) 21 Laboratory test 08/07/2018 [facility] Actin (Smooth 7 units 0-[address] Muscle) [place] [address] [phone] Mitochondrial (M2) Antibodies 8.4 units 0.0-20.0 23 Utuhs-0-Kkyksxtjrdc,Serum 124 mg/dL 90-200 Ceruloplasmin 22.1 mg/dL 16.0-31.0 Capillary blood 08/02/2018 N2N/CCD Import Capillary blood 298 High 70- 110 glucose measurement glucose by glucometer measurement by glucometer (mass/volume) Serum sodium 08/02/2018 N2N/CCD Import Serum sodium 136 136-145 measurement measurement Serum or plasma 08/02/2018 N2N/CCD Import Serum or plasma 22.3 urea urea nitrogen/creatinine nitrogen/creatinin mass rati e mass ratio Serum or plasma 08/02/2018 N2N/CCD Import Serum or plasma 29 High 7-18 urea nitrogen urea nitrogen measurement measurement (mass/vo (mass/volume) Serum or plasma 08/02/2018 N2N/CCD Import Serum or plasma 0.3 0.2-1.0 total bilirubin total bilirubin measurement (mass/ measurement (mass/volume) Serum or plasma 08/02/2018 N2N/CCD Import Serum or plasma 7.8 6.4-8.2 protein measurement protein (mass/volume) measurement (mass/volume) Serum or plasma 08/02/2018 N2N/CCD Import Serum or plasma 253 High 74- 106 glucose measurement glucose (mass/volume) measurement (mass/volume) Serum or plasma 08/02/2018 N2N/CCD Import Serum or plasma 1.3 0.6-1.3 creatinine creatinine measurement measurement (mass/volum (mass/volume) Serum or plasma 08/02/2018 N2N/CCD Import Serum or plasma 8.4 Low 8.5- 10.1 calcium measurement calcium (mass/volume) measurement (mass/volume) Serum or plasma 08/02/2018 N2N/CCD Import Serum or plasma 53 High 15-37 aspartate aspartate aminotransferase aminotransferase measure measurement (enzymatic activity/volume) Serum or plasma 08/02/2018 N2N/CCD Import Serum or plasma 152 High 45- 117 alkaline alkaline phosphatase phosphatase measurement ( measurement (enzymatic activity/volume) Serum or plasma 08/02/2018 N2N/CCD Import Serum or plasma 3.4 3.4-5.0 albumin measurement albumin (mass/volume) measurement (mass/volume) Serum or plasma 08/02/2018 N2N/CCD Import Serum or plasma Negative Negative acetone detection acetone detection Color Ur 08/02/2018 N2N/CCD Import Color Ur Yellow Yellow Ketones Ur 08/02/2018 N2N/CCD Import Ketones Ur Negative Negative Strip.auto-mCnc Strip.auto-mCnc Leukocyte esterase 08/02/2018 N2N/CCD Import Leukocyte esterase Negative Negative Ur Ql Strip.auto Ur Ql Strip.auto Nitrite Ur Ql 08/02/2018 N2N/CCD Import Nitrite Ur Ql Negative Negative Strip.auto Strip.auto Prot Ur 08/02/2018 N2N/CCD Import Prot Ur Negative Negative Strip.auto-mCnc Strip.auto-mCnc Specific gravity of 08/02/2018 N2N/CCD Import Specific gravity 1.010 1.010-1.03 Urine by Automated of Urine by 0 test strip Automated test strip Urine appearance 08/02/2018 N2N/CCD Import Urine appearance Clear Clear determination determination Urine glucose 08/02/2018 N2N/CCD Import Urine glucose Negative Negative measurement by measurement by automated test automated test strip strip (mass/volume) Urine hemoglobin 08/02/2018 N2N/CCD Import Urine hemoglobin Trace Negative detection by detection by automated test automated test strip strip Urine total 08/02/2018 N2N/CCD Import Urine total Negative Negative bilirubin detection bilirubin by automated test detection by automated test strip Urobilinogen Ur 08/02/2018 N2N/CCD Import Urobilinogen Ur 0.2 0.2-1.0 Strip-aCnc Strip-aCnc pH Ur Strip.auto 08/02/2018 N2N/CCD Import pH Ur Strip.auto 6.0 Low 6.5- 7.5 Anion Gap 08/02/2018 N2N/CCD Import Anion Gap 5 Low 8-16 SerPl-sCnc SerPl-sCnc Albumin/Glob SerPl 08/02/2018 N2N/CCD Import Albumin/Glob SerPl 0.8 Alt SerPl-cCnc 08/02/2018 N2N/CCD Import Alt SerPl-cCnc 110 High 12-78 Automated blood 08/02/2018 N2N/CCD Import Automated blood 0.01 0.0-0.1 basophil count basophil count (count/volume) (count/volume) Automated blood 08/02/2018 N2N/CCD Import Automated blood 0.16 0.0-0.5 eosinophil count eosinophil count Automated blood 08/02/2018 N2N/CCD Import Automated blood 37.4 Low 38.0- 48.0 hematocrit (volume hematocrit (volume fraction) fraction) Automated blood 08/02/2018 N2N/CCD Import Automated blood 1.66 1.0-4.0 lymphocyte count lymphocyte count (number/volume) (number/volume) Automated blood 08/02/2018 N2N/CCD Import Automated blood 124 Low 155- 360 platelet count platelet count Automated blood 08/02/2018 N2N/CCD Import Automated blood 12.1 High 6.6- 10.6 platelet mean platelet mean volume measurement volume measurement Automated 08/02/2018 N2N/CCD Import Automated 27.5 27.0-33.0 erythrocyte mean erythrocyte mean corpuscular corpuscular hemoglobin hemoglobin (mass per erythrocyte) Automated 08/02/2018 N2N/CCD Import Automated 31.6 Low 31.7-36.0 erythrocyte mean erythrocyte mean corpuscular corpuscular hemoglobin hemoglobin concentration measurement (mass/volume) Automated 08/02/2018 N2N/CCD Import Automated 87.2 80.0-96.0 erythrocyte mean erythrocyte mean corpuscular volume corpuscular volume Basophils/leuk NFr 08/02/2018 N2N/CCD Import Basophils/leuk NFr 0.1 0.0- 1.1 Bld Auto Bld Auto Blood erythrocytes 08/02/2018 N2N/CCD Import Blood erythrocytes 4.29 4.20-5.80 automated count automated count (number/volume) (number/volume) Serum carbon 08/02/2018 N2N/CCD Import Serum carbon 27 21-32 dioxide measurement dioxide measurement RDW RBC Auto-Rto 08/02/2018 N2N/CCD Import RDW RBC Auto-Rto 12.9 11.6- 15.8 RDW RBC Auto 08/02/2018 N2N/CCD Import RDW RBC Auto 39.8 36-51 Potassium 08/02/2018 N2N/CCD Import Potassium 4.9 3.5-5.1 SerPl-sCnc SerPl-sCnc Neutrophils/leuk 08/02/2018 N2N/CCD Import Neutrophils/leuk 67.1 33.0- 73.0 NFr Bld Auto NFr Bld Auto Neutrophils # Bld 08/02/2018 N2N/CCD Import Neutrophils # Bld 4.95 1.8- 7.0 Auto Auto Monocytes/leuk NFr 08/02/2018 N2N/CCD Import Monocytes/leuk NFr 8.1 0.0- 10.0 Bld Auto Bld Auto Lymphocytes/leuk 08/02/2018 N2N/CCD Import Lymphocytes/leuk 22.5 20.0- 42.0 NFr Bld Auto NFr Bld Auto Globulin Ser 08/02/2018 N2N/CCD Import Globulin Ser 4.4 High 1.9-4.3 Calc-mCnc Calc-mCnc GFR/Bsa pred.non 08/02/2018 N2N/CCD Import GFR/Bsa pred.non 59 >60 black SerPl black SerPl MDRD-ArVRat MDRD-ArVRat Eosinophil/leuk NFr 08/02/2018 N2N/CCD Import Eosinophil/leuk 2.2 0.0- 6.6 Bld Auto NFr Bld Auto Chloride SerPl-sCnc 08/02/2018 N2N/CCD Import Chloride 104 98-107 SerPl-sCnc Blood monocytes 08/02/2018 N2N/CCD Import Blood monocytes 0.60 0.0-0.8 automated count automated count (number/volume) (number/volume) Blood leukocytes 08/02/2018 N2N/CCD Import Blood leukocytes 7.4 3.4- 10.5 automated count automated count (number/volume) (number/volume) Blood hemoglobin 08/02/2018 N2N/CCD Import Blood hemoglobin 11.8 Low 12.8 -17.0 measurement measurement (mass/volume) (mass/volume) Basic Metabolic 05/29/2018 [facility] Glucose 202 mg/dL High 74-106 24 Panel [address] [place], [place] [id number] [phone] BUN 31 mg/dL High 7-18 Creatinine 1.4 mg/dL High 0.6-1.3 Glom Filtration Rate, Estimate 54 mL/min >60 If >60 mL/min >60 25 BUN/Creat 22.1 ratio Sodium 144 mmol/L N 136-145 Potassium 5.0 mmol/L N 3.5-5.1 Chloride 110 mmol/L High 98-107 Carbon Dioxide 26 mmol/L N 21-32 Anion Gap 8 mEq/L N 8-16 Calcium 8.5 mg/dL N 8.5-10.1 Laboratory test 05/24/2018 [facility] Vitamin B12 659 pg/mL 211-946 finding Lipid Profile 1 05/24/2018 [facility] Cholest SerPl-mCnc 80 mg/dL < 200 Trigl SerPl-mCnc 254 mg/dL High <150 HDLc SerPl-mCnc 31 mg/dL Low >40 LDLc SerPl Calc-mCnc Questionable Res <SEE NOTE> mg/dL <100 26 VLDLc SerPl Calc-mCnc 51 mg/dL High 16-42 NonHDLc SerPl-mCnc 49 mg/dL <130 Comprehensive Metabolic 05/24/2018 [facility] Albumin SerPl 3.9 g/dL 3.5-5.2 Marrero BCG-mCnc Bilirub SerPl-mCnc 0.3 mg/dL <1.2 Calcium SerPl-mCnc [...] SerPl MDRD-ArVRat 70 mL/min/1.73m2 >60 Laboratory test finding 05/24/2018 [facility] TSH 1.000 u[IU]/mL 0.270 -4.200 Vit D 25 Hydroxy Total 29 ng/mL Low >30 Microalbumin,Urine 05/24/2018 [facility] Microalbumin Broken/Spilled i <23.0 27 Ur-mCnc <SEE NOTE> mg/L Creat Ur-mCnc Broken/Spilled i <SEE NOTE> mg/dL 28 Albumin/Creat Ur Broken/Spilled i <SEE NOTE> ug/mgcreat <20.0 29 Laboratory test 05/24/2018 [facility] Glucose Poc 194 mg/dL High 70- 105 finding Hemoglobin A1c 05/24/2018 [facility] Hgb A1c MFr Bld 7.5 % High 4.0- 6.0 Est. average glucose Bld gHb Est-mCnc 169 mg/dL High <126 Laboratory test 04/19/2018 [facility] Prostate 0.30 < 4.0 30, [address] Specific ng/[place] [address] Antigen [phone] Comprehensive 04/19/2018 [facility] Glucose 303 mg/dL High 74-106 Metabolic Panel [address] [place] [address] [phone] BUN 29 mg/dL High 7-18 Creatinine 1.3 mg/dL N 0.6-1.3 Glom Filtration Rate, Estimate 59 mL/min >60 If >60 mL/min >60 32 BUN/Creat 22.3 ratio Sodium 138 mmol/L N 136-145 Potassium 5.0 mmol/L N 3.5-5.1 Chloride 106 mmol/L N 98-107 Carbon Dioxide 27 mmol/L N 21-32 Anion Gap 5 mEq/L Low 8-16 Calcium 8.2 mg/dL Low 8.5-10.1 Total Protein 7.7 g/dL N 6.4-8.2 Albumin 3.4 g/dL N 3.4-5.0 Globulin 4.3 g/dL N 1.9-4.3 Alb/Glob 0.8 ratio Bilirubin,Total 0.3 mg/dL N 0.2-1.0 Sgot/Ast 32 U/L N 15-37 SGPT/Alt 54 U/L N 12-78 Alkaline Phosphatase 142 U/L High 45-117 LDL Cholesterol Profile 04/19/2018 [facility] Cholesterol 66 mg/dL <200 33 [address] [place] [address] [phone] Triglycerides 72 mg/dL <150 34 HDL Cholesterol 36 mg/dL Low >40 35 LDL-Cholesterol 16 mg/dL < 100 36 Laboratory test 04/19/2018 [facility] Vitamin 39.3 30.0-100.0 37 finding 134 [facility] D,25-Hydroxy ng/[place] [address] [phone] Serum or plasma 04/19/2018 N2N/CCD Import Serum or plasma 39.3 30.0- 100.0 25-hydroxyvitam 25-hydroxyvitam in D in D measurement (m measurement (mass/volume) Serum or plasma 04/19/2018 N2N/CCD Import Serum or plasma 36 Low >40 cholesterol in cholesterol in HDL measurement HDL measurement (ma (mass/volume) Serum or plasma 04/19/2018 N2N/CCD Import Serum or plasma 16 < 100 cholesterol in cholesterol in LDL measurement LDL measurement by by calculation (mass/volume) Serum or plasma 04/19/2018 N2N/CCD Import Serum or plasma 66 <200 cholesterol cholesterol measurement measurement (mass/volu (mass/volume) Serum or plasma 04/19/2018 N2N/CCD Import Serum or plasma 72 <150 triglyceride triglyceride measurement measurement (mass/vol (mass/volume) Ua RFX Micro & 03/17/2018 [facility] Urine Color YELLOW Yellow 38 Culture II [address] [place] [address] [phone] Urine Clarity CLEAR Clear Urine Glucose - Dipstick NEGATIVE mg/dL Negative Urine Bilirubin - Dipstick NEGATIVE Negative Urine Ketone NEGATIVE mg/dL Negative Urine Specific [place] <=1.005 Low 1.010-1.030 Urine Blood TRACE Negative Urine PH 5.5 Low 6.5-7.5 Urine Protein - Dipstick NEGATIVE mg/dL Negative Urine Urobilinogen - Dipstick 0.2 E.U./dL N 0.2-1.0 Urine Nitrite - Dipstick NEGATIVE Negative Urine Leuk Esterase NEGATIVE Negative Source: URINE, CLEAN CAT <SEE NOTE> 39 Hemoglobin A1c 02/21/2018 [facility] Hgb A1c MFr Bld 7.4 % High 4.0- 6.0 Est. average glucose Bld gHb Est-mCnc 166 mg/dL High <126 Laboratory test 02/21/2018 [facility] Glucose Poc 143 mg/dL High 70- 105 finding Basic Metabolic 01/16/2018 [facility] Glucose 172 mg/dL High 74-106 [address] [place] [address] [phone] BUN 24 mg/dL High 7-18 Creatinine 1.3 mg/dL N 0.6-1.3 Glom Filtration Rate, Estimate 59 mL/min >60 If >60 mL/min >60 41 BUN/Creat 18.4 ratio Sodium 140 mmol/L N 136-145 Potassium 4.4 mmol/L N 3.5-5.1 Chloride 106 mmol/L N 98-107 Carbon Dioxide 30 mmol/L N 21-32 Anion Gap 4 mEq/L Low 8-16 Calcium 8.7 mg/dL N 8.5-10.1 Hemoglobin A1c 11/24/2017 [facility] Hgb A1c MFr Bld 7.1 % High 4.0- 6.0 Est. average glucose Bld gHb Est-mCnc 157 mg/dL High <126 Laboratory test 11/24/2017 [facility] Glucose Poc 84 mg/dL 70-105 finding Stool Culture 11/22/2017 [facility] Stool Culture NO ENTERIC 42, [address] PATHO <[place] [address] NOTE> [phone] . ................ <SEE NOTE> 44 Note: INCLUDES TESTING <SEE NOTE> 45 . PLESIOMONAS, CAM <SEE NOTE> 46 . ................ <SEE NOTE> 47 . YERSINIA AND VIB <SEE NOTE> 48 . SHOULD BE REQUES <SEE NOTE> 49 Shiga Toxin 1 Antigen SHIGA TOXIN 1 NO <SEE NOTE> 50 Shiga Toxin 2 Antigen SHIGA TOXIN 2 NO <SEE NOTE> 51 Laboratory test 11/22/2017 [facility] C. Difficile Toxin Negative for [address] B By PCR tox <[place] [address] NOTE> [phone] Ova & Parasite 11/22/2017 [facility] Cryptosporidium NEGATIVE FOR [address] Specific Ag CRY <[place] [address] NOTE> [phone] Giardia Specific Antigen NEGATIVE FOR RHONDA <SEE NOTE> 54 Parasite Concentrate Exam Result 1 55 Permanent Trichrome Stain Test not perform <SEE NOTE> 56 Laboratory test 10/10/2017 [facility] Sed Rate - Esr 21 mm/hr High <20 finding Comprehensive 10/10/2017 [facility] Albumin SerPl 4.1 g/dL 3.5-5.2 57 Metabolic Marrero BCG-mCnc Bilirub SerPl-mCnc 0.3 mg/dL <1.2 58 Calcium SerPl-mCnc 9.4 mg/dL 8.8-10.2 59 Chloride SerPl-sCnc 105 mmol/L 98-107 60 Creat SerPl-mCnc 0.90 mg/dL 0.5-1.2 61 Glucose SerPl-mCnc 49 mg/dL Low 70-140 62 Alp SerPl-cCnc 115 U/L 40-129 63 Potassium SerPl-sCnc 5.3 mmol/L High 3.5-5.1 64 Prot SerPl-mCnc 6.8 g/dL 6.4-8.3 65 Sodium SerPl-sCnc 142 mmol/L 136-145 66 Ast SerPl-cCnc 22 U/L <40 67 BUN SerPl-mCnc 21 mg/dL 8-23 68 Osmolality SerPl Calc 294 mosm/kg 275-300 69 Creat/Urea nit SerPl 23 70 Hco3 Ser-sCnc 25 mmol/L 22-29 71 Alt SerPl-cCnc 31 U/L <41 72 Anion Gap3 SerPl-sCnc 12 mmol/L 8-15 73 Albumin/Glob SerPl 1.5 74 GFR/Bsa pred.non black SerPl MDRD-ArVRat 89 mL/min/1.73m2 >60 75 GFR/Bsa pred.black SerPl MDRD-ArVRat >90 mL/min/1.73m2 >60 76 Laboratory test 10/10/2017 [facility] CRP Highly 1.5 mg/L <3.0 77 finding Sensitive CBC + Diff, Plat 10/10/2017 [facility] WBC Num Bld Auto 6.6 10*3/uL 4- 10 Count RBC Num Bld Auto 4.23 10*6/uL Low [...] WBC Bld Auto-Rto 0 /100{WBCs} 0-0 Comprehensive 06/23/2017 [facility] Glucose 224 mg/dL High 74-106 78 Metabolic Panel [address] [place] [address] [phone] BUN 23 mg/dL High 7-18 Creatinine 0.9 mg/dL N 0.6-1.3 Glom Filtration Rate, Estimate >60 mL/min >60 If >60 mL/min >60 79 BUN/Creat 25.5 ratio Sodium 141 mmol/L N 136-145 Potassium 4.6 mmol/L N 3.5-5.1 Chloride 111 mmol/L High 98-107 Carbon Dioxide 26 mmol/L N 21-32 Anion Gap 4 mEq/L Low 8-16 Calcium 9.0 mg/dL N 8.5-10.1 Total Protein 7.6 g/dL N 6.4-8.2 Albumin 3.5 g/dL N 3.4-5.0 Globulin 4.1 g/dL N 1.9-4.3 Alb/Glob 0.9 ratio Bilirubin,Total 0.4 mg/dL N 0.2-1.0 Sgot/Ast 18 U/L N 15-37 SGPT/Alt 33 U/L N 12-78 Alkaline Phosphatase 132 U/L High 45-117 LDL Cholesterol Profile 06/23/2017 [facility] Cholesterol 63 mg/dL <200 80 [address] [place] [address] [phone] Triglycerides 76 mg/dL <150 81 HDL Cholesterol 44 mg/dL >40 82 LDL-Cholesterol 4 mg/dL < 100 83 Basic Metabolic Panel 05/24/2017 [facility] Glucose 201 mg/dL High 74-106 84 [address] [place] [address] [phone] BUN 19 mg/dL High 7-18 Creatinine 0.8 mg/dL N 0.6-1.3 Glom Filtration Rate, Estimate >60 mL/min >60 If >60 mL/min >60 85 BUN/Creat 23.7 ratio Sodium 140 mmol/L N 136-145 Potassium 4.0 mmol/L N 3.5-5.1 Chloride 105 mmol/L N 98-107 Carbon Dioxide 27 mmol/L N 21-32 Anion Gap 8 mEq/L N 8-16 Calcium 9.0 mg/dL N 8.5-10.1 Laboratory test 05/24/2017 [facility] Troponin-I 0.044 ng/mL 86 finding [address] [place] [address] [phone] CBS W/Automated 05/24/2017 [facility] White Blood 6.7 K/uL N 3.4-10 Diff 134 [facility] Count .5 [place] [address] [phone] Red Blood Count 4.52 M/uL N 4.20-5.80 Hemoglobin 12.6 gm/dL Low 12.8-17.0 Hematocrit 37.7 % Low 38.0-48.0 Mean Cell Volume 83.4 fl N 80.0-96.0 Mean Corpuscular HGB 27.9 pg N 27.0-33.0 Mean Corpuscular HGB Conc 33.4 g/dL N 31.7-36.0 Platelet Count 128 K/uL Low 150-400 Red Cell Distri Width SD 38.0 fl N 36-51 Red Cell Distri Width %CV 12.8 % N 11.6-15.8 Mean Platelet Volume 13.2 fL High 6.6-10.6 Neut% 57.2 % N 33.0-73.0 Lymph % 29.6 % N 20.0-42.0 Worth % 8.6 % N 0.0-10.0 Eo% 4.3 % N 0.0-6.6 Bas% 0.3 % N 0.0-1.1 Neut# 3.85 K/uL N 1.8-7.0 Lymph # 1.99 K/uL N 1.0-4.0 Worth # 0.58 K/uL N 0.0-0.8 Eos # 0.29 K/uL N 0.0-0.5 Baso # 0.02 K/uL N 0.0-0.1 Laboratory test 05/24/2017 [facility] Hepatitis C 0.1 0.0-0.[address] Antibody s/[place] [address] [phone] Glycohemoglobin 05/24/2017 [facility] Glycohemoglobin 7.3 % High 4.2-6.[address] (A1c) [place] [address] [phone] eAG 163 mg/dL Laboratory test 05/24/2017 [facility] Troponin-I 0.045 ng/mL [address] [place] [address] [phone] CBS W/Automated 05/23/2017 [facility] White Blood 6.9 K/uL N 3.4-10 [address] Count .5 [place] [address] [phone] Red Blood Count 4.56 M/uL N 4.20-5.80 Hemoglobin 12.6 gm/dL Low 12.8-17.0 Hematocrit 37.9 % Low 38.0-48.0 Mean Cell Volume 83.1 fl N 80.0-96.0 Mean Corpuscular HGB 27.6 pg N 27.0-33.0 Mean Corpuscular HGB Conc 33.2 g/dL N 31.7-36.0 Platelet Count 135 K/uL Low 150-400 Red Cell Distri Width SD 37.9 fl N 36-51 Red Cell Distri Width %CV 12.7 % N 11.6-15.8 Mean Platelet Volume 13.0 fL High 6.6-10.6 Neut% 64.4 % N 33.0-73.0 Lymph % 25.0 % N 20.0-42.0 Worth % 7.7 % N 0.0-10.0 Eo% 2.5 % N 0.0-6.6 Bas% 0.4 % N 0.0-1.1 Neut# 4.45 K/uL N 1.8-7.0 Lymph # 1.73 K/uL N 1.0-4.0 Worth # 0.53 K/uL N 0.0-0.8 Eos # 0.17 K/uL N 0.0-0.5 Baso # 0.03 K/uL N 0.0-0.1 Aot Request 05/23/2017 [facility] Aot Request Test(s) added 91 [address] [place] [address] [phone] Tests to be added: d-dimer Instructions: thank you Laboratory test 05/23/2017 [facility] Troponin-I 0.039 ng/mL 92, 93 finding [address] [place] [address] [phone] 1 E11.9 2 Instrument flagged sample for slide review. Less than 10% Bands seen, no other immature WBC's seen. RBC morphology essentially normal. Platelet estimate=SLIGHT DECREASE 3 MIXED URETHRAL TRICIA 4 URINE, CLEAN CATCH 5 Reference Guidelines*: Desirable: ........... < 200 mg/dL Borderline High: ..... 200-239 mg/dL High: ................ >=240 mg/dL * The National Cholesterol Education Program (NCEP) 6 Reference Guidelines*: Normal: ............. < 150 mg/dL Borderline High: .... 150-199 mg/dL High: ............... 200-499 mg/dL Very High: .......... > 500 mg/dL * Source: National Cholesterol Education Program (NCEP) 7 Reference Guidelines*: Low HDL: ..... < 40 mg/dL Normal: ..... 40-60 mg/dL Desirable: ... > 60 mg/dL *The National Cholesterol Education Program(NCEP) 8 Reference Guidelines*: Optimal:........... <100 mg/dL Near Optimal....... 100-129 mg/dL Borderline High.... 130-159 mg/dL High............... 160-189 mg/dL Very High.......... >=190 mg/dL * Source: National Cholesterol Education Program (NCEP) 9 Elevated levels of HbA1c suggest the need for more aggressive treatment of glycemia. The [place] Diabetes [employer] recommends that a primary goal of therapy should be a HbA1c of <7% and that physicians should re-evaluate the treatment regimen in patients with HbA1c values consistently >8%. 10 Note: Persistent reduction for 3 months or more in an eGFR <60 mL/min/1.73 m2 defines CKD. Patients with eGFR values >/=60 mL/min/1.73 m2 may also have CKD if evidence of persistent proteinuria is present. The original MDRD equation for estimated GFR is not valid for patients less than 18 years of age. Additional information may be found at www.kdoqi.org. 11 R94.5 12 Negative 0 - 19 Weak Positive 20 - 30 Moderate to Strong Positive >30 13 Negative 0 - 19 Weak Positive 20 - 30 Moderate to Strong Positive >30 14 Negative 0 - 3 Weak Positive 4 - 10 Positive >10 Tissue Transglutaminase (tTG) has been identified as the endomysial antigen. Studies have demonstr- ated that endomysial IgA antibodies have over 99% specificity for gluten sensitive enteropathy. 15 Negative 0 - 5 Weak Positive 6 - 9 Positive >9 16 Negative <1:80 Borderline 1:80 Positive >1:80 Performed at: [facility] [id number] Sheet Metal Mechanic: Irina Vitale MD, Phone: [phone] Performed at: [facility] [address] [id number] Sheet Metal Mechanic: Brenna Ervin MD, Phone: [phone] 17 Negative: HCV RNA Not Detected 18 Performed at: [facility] [id number] Sheet Metal Mechanic: Irina Vitale MD, Phone: [phone] 19 INFCE Result Units: s/co ratio Negative: < 0.8 Indeterminate: 0.8 - 0.9 Positive: > 0.9 The CDC recommends that a positive HCV antibody result be followed up with a HCV Nucleic Acid Amplification test (561271). 20 Protein electrophoresis scan will follow via computer, mail, or outboard technician delivery. 21 The SPE pattern appears essentially unremarkable. Evidence of monoclonal protein is not apparent. 22 Negative 0 - 19 Weak positive 20 - 30 Moderate to strong positive >30 Actin Antibodies are found in 52-85% of patients with autoimmune hepatitis or chronic active hepatitis and in 22% of patients with primary biliary cirrhosis. 23 Negative 0.0 - 20.0 Equivocal 20.1 - 24.9 Positive >24.9 Mitochondrial (M2) Antibodies are found in 90-96% of patients with primary biliary cirrhosis. 24 I10 25 Note: Persistent reduction for 3 months or more in an eGFR <60 mL/min/1.73 m2 defines CKD. Patients with eGFR values >/=60 mL/min/1.73 m2 may also have CKD if evidence of persistent proteinuria is present. The original MDRD equation for estimated GFR is not valid for patients less than 18 years of age. Additional information may be found at www.kdoqi.org. 26 Questionable Result, New Specimen Requested 27 Broken/Spilled in Transit 28 Broken/Spilled in Transit 29 Broken/Spilled in Transit 30 Z12.5 I10 E78.5 E55.9 31 THIS ASSAY IS NOT INTENDED A CANCER SCREENING TEST The concentration of PSA in a given specimen, determined with assays from different manufacturers, can vary due to differences in assay methods and reagent specificity. Values obtained from different assay methods cannot be used interchangeably. Method: [employer] [place] Chemiluminescent immunoassay. 32 Note: Persistent reduction for 3 months or more in an eGFR <60 mL/min/1.73 m2 defines CKD. Patients with eGFR values >/=60 mL/min/1.73 m2 may also have CKD if evidence of persistent proteinuria is present. The original MDRD equation for estimated GFR is not valid for patients less than 18 years of age. Additional information may be found at www.kdoqi.org. 33 Reference Guidelines*: Desirable: ........... < 200 mg/dL Borderline High: ..... 200-239 mg/dL High: ................ >=240 mg/dL * The National Cholesterol Education Program (NCEP) 34 Reference Guidelines*: Normal: ............. < 150 mg/dL Borderline High: .... 150-199 mg/dL High: ............... 200-499 mg/dL Very High: .......... > 500 mg/dL * Source: National Cholesterol Education Program (NCEP) 35 Reference Guidelines*: Low HDL: ..... < 40 mg/dL Normal: ..... 40-60 mg/dL Desirable: ... > 60 mg/dL *The National Cholesterol Education Program(NCEP) 36 Reference Guidelines*: Optimal:........... <100 mg/dL Near Optimal....... 100-129 mg/dL Borderline High.... 130-159 mg/dL High............... 160-189 mg/dL Very High.......... >=190 mg/dL * Source: National Cholesterol Education Program (NCEP) 37 Vitamin D deficiency has been defined by the [place] [employer] and an Endocrine Society practice guideline as a level of serum 25-OH vitamin D less than 20 ng/mL (1,2). The Endocrine Society went on to further define vitamin D insufficiency as a level between 21 and 29 ng/mL (2). 1. IOM ([place] [employer]). 2010. Dietary reference intakes for calcium and D. [place]: The National Academies Press. 2. Lucia MF, Cordelia NC, Gonzalo BEE, et al. Evaluation, treatment, and prevention of vitamin D deficiency: an Endocrine Society clinical practice guideline. JCEM. 2010; 96(7):1911-30. Performed at: [facility] [address] [place], [place] [id number] Sheet Metal Mechanic: Irina Vitale MD, Phone: [phone] 38 FELL LAST NIGHT, R SIDE RIB, L FLANK PAIN 39 URINE, CLEAN CATCH 40 I10 41 Note: Persistent reduction for 3 months or more in an eGFR <60 mL/min/1.73 m2 defines CKD. Patients with eGFR values >/=60 mL/min/1.73 m2 may also have CKD if evidence of persistent proteinuria is present. The original MDRD equation for estimated GFR is not valid for patients less than 18 years of age. Additional information may be found at www.kdoqi.org. 42 R19.7 43 NO ENTERIC PATHOGENS ISOLATED 44 ................................................... 45 INCLUDES TESTING FOR SALMONELLA, SHIGELLA, AEROMONAS, 46 PLESIOMONAS, CAMPYLOBACTER, AND E. COLI 0157:H7 47 ................................................... 48 YERSINIA AND VIBRIO ARE NOT ROUTINELY SCREENED FOR AND 49 SHOULD BE REQUESTED SEPARATELY 50 SHIGA TOXIN 1 NOT DETECTED 51 SHIGA TOXIN 2 NOT DETECTED Method: ImmunoCard STAT/EHEC Rapid Immunochromatographic Assay 52 Negative for toxigenic C. difficile by PCR 53 NEGATIVE FOR CRYPTOSPORIDIUM SPECIFIC ANTIGEN 54 NEGATIVE FOR GIARDIA SPECIFIC ANTIGEN. The specimen will be held for 5 days. Additional testing may be performed upon request if the antigen tests are negative, and the patient is still symptomatic or has traveled to an endemic region. Method: [employer] Chek Rapid Membrane Enzyme Immunoassay 55 No ova, cysts, or parasites seen. One negative specimen does not rule out the possibility of a parasitic infection Performed at: [facility] [address] [place], [place] [id number] Sheet Metal Mechanic: Irina Vitale MD, Phone: [phone] 56 Test not performed 57 Confirmed 58 Confirmed 59 Confirmed 60 Confirmed 61 Confirmed 62 Confirmed Called to and read back by NOTIFIED MEAGAN [phone] Confirmed 64 Confirmed 65 Confirmed 66 Confirmed 67 Confirmed 68 Confirmed 69 Confirmed 70 Confirmed 71 Confirmed 72 Confirmed 73 Confirmed 74 Confirmed 75 Confirmed 76 Confirmed 77 Confirmed (NOTE) CRPHS (mg/L) CVD risk <1.0 low 1.0-3.0 average >3.0 high 78 I10 79 Note: Persistent reduction for 3 months or more in an eGFR <60 mL/min/1.73 m2 defines CKD. Patients with eGFR values >/=60 mL/min/1.73 m2 may also have CKD if evidence of persistent proteinuria is present. The original MDRD equation for estimated GFR is not valid for patients less than 18 years of age. Additional information may be found at www.kdoqi.org. 80 Reference Guidelines*: Desirable: ........... < 200 mg/dL Borderline High: ..... 200-239 mg/dL High: ................ >=240 mg/dL * The National Cholesterol Education Program (NCEP) 81 Reference Guidelines*: Normal: ............. < 150 mg/dL Borderline High: .... 150-199 mg/dL High: ............... 200-499 mg/dL Very High: .......... > 500 mg/dL * Source: National Cholesterol Education Program (NCEP) 82 Reference Guidelines*: Low HDL: ..... < 40 mg/dL Normal: ..... 40-60 mg/dL Desirable: ... > 60 mg/dL *The National Cholesterol Education Program(NCEP) 83 Reference Guidelines*: Optimal:........... <100 mg/dL Near Optimal....... 100-129 mg/dL Borderline High.... 130-159 mg/dL High............... 160-189 mg/dL Very High.......... >=190 mg/dL * Source: National Cholesterol Education Program (NCEP) 84 CHEST PAIN,ACS 85 Note: Persistent reduction for 3 months or more in an eGFR <60 mL/min/1.73 m2 defines CKD. Patients with eGFR values >/=60 mL/min/1.73 m2 may also have CKD if evidence of persistent proteinuria is present. The original MDRD equation for estimated GFR is not valid for patients less than 18 years of age. Additional information may be found at www.kdoqi.org. 86 0.0 - 0.045 ng/mL: Normal 0.046 - 0.5 ng/mL: Suggestive 0.6 - 1.5 ng/mL: Consistent 87 INFCE Result Units: s/co ratio Negative: < 0.8 Indeterminate: 0.8 - 0.9 Positive: > 0.9 The CDC recommends that a positive HCV antibody result be followed up with a HCV Nucleic Acid Amplification test (765724). Performed at: [facility] - [facility] [address] [id number] Sheet Metal Mechanic: Irina Vitale MD, Phone: [phone] 88 Elevated levels of HbA1c suggest the need for more aggressive treatment of glycemia. The [place] [employer] Association recommends that a primary goal of therapy should be a HbA1c of <7% and that physicians should re-evaluate the treatment regimen in patients with HbA1c values consistently >8%. 89 0.0 - 0.045 ng/mL: Normal 0.046 - 0.5 ng/mL: Suggestive 0.6 - 1.5 ng/mL: Consistent 90 CHEST PAIN 91 Tests: d-dimer Instructions: thank you 92 CHEST PAIN,ACS 93 0.0 - 0.045 ng/mL: Normal 0.046 - 0.5 ng/mL: Suggestive 0.6 - 1.5 ng/mL: Consistent Procedures Date Code Description Status 08/22/2018 22682 Colonoscopy With Biopsy Completed 08/22/2018 [id number] Colonoscopy Completed 07/04/2018 11591 Asp./Injection major joint Completed 02/21/2018 [id number] Diabetic Foot Exam Completed 10/25/2017 98932 EKG Interpretation And Report Only Completed 05/23/2017 87661 Echocardiogram Complete Completed 05/23/2017 81227 Stress Test Interpre And Report Only Completed 05/23/2017 86560 Stress Test Physician Super Only Completed 05/23/2017 31785 Myocardial Imaging Tomographic Multiple Study AT Rest Completed Or Stress 02/22/2017 01538 Bronchospasm Provocation Evaluation Multi Spirometric Completed Determinati 02/22/2017 12389 Spirometry Completed Encounters Type Date Location Provider Dx Diagnosis Office Visit 11/13/2018 [facility] Medicine Alex Carcamo MD E11.9 Type 2 diabetes 1:[address]p [address] mellitus without complications I10 Essential (primary) hypertension E78.5 Hyperlipidemia, unspecified R25.1 Tremor, unspecified Office Visit 11/01/2018 2:15p Nando Castañeda MD 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 Office Visit 09/10/2018 11:15a [facility] Medicine Alex Carcamo MD M54.[address] pain [address] E11.9 Type 2 diabetes mellitus without complications I10 Essential (primary) hypertension E78.5 Hyperlipidemia, unspecified Office Visit 08/13/2018 Family Crissy, N52.9 Male erectile 1:30p Medicine Cipriano 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, 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, RD unspecified I10 Essential (primary) hypertension Office Visit 08/07/2018 9:00a Nando Castañeda MD R19.7 Diarrhea, unspecified R94.5 Abnormal results of liver function studies Office Visit 08/01/2018 Orthopaedic Yudith, M17.11 Unilateral primary 2:00p Office Amber S., [facility] Office Visit 07/27/2018 [facility] Medicine Ree Beltran, S91.311D Laceration without 2:30p [address] [employer]ACK MA[employer]ER foreign body, right foot, subs encntr N52.9 Male erectile dysfunction, unspecified Office Visit 07/13/2018 2:30p [facility] Medicine Ree Beltran, S91.311A Laceration [address] [employer]ER without foreign body, right foot, init encntr Office Visit 07/04/2018 3:00p Orthopaedic Yudith, M25.561 Pain in right Office Amber S., knee RPAC M17.11 Unilateral primary osteoarthritis, right knee R26.89 Other abnormalities of gait and mobility Office Visit 05/29/2018 9:45a Family Medicine Kiersten Powell, I10 Essential (primary) [place] M.DJovon hypertension Z12.11 Encounter for screening for malignant neoplasm of colon M25.561 Pain in right knee E87.5 Hyperkalemia W01.0xxD Fall same lev from slip/trip w/o strike against object, subs Office Visit 04/19/2018 10:00a Family Medicine Kiersten Powell, Z00.01 Encounter for Cipriano WHALEN M.D. general adult medical exam w abnormal findings Z12.5 Encounter for screening for malignant neoplasm of prostate Z12.11 Encounter for screening for malignant neoplasm of colon I10 Essential (primary) hypertension E78.5 Hyperlipidemia, unspecified E55.9 Vitamin D deficiency, unspecified L30.9 Dermatitis, unspecified R19.7 Diarrhea, unspecified Z23 Encounter for immunization Office Visit 03/20/2018 3:30p Family Kiersten Serna, R10.31 Right lower Cipriano WHALEN MAlexandra quadrant pain M25.562 Pain in left knee Office Visit 03/15/2018 8:45a Family Kiersten Serna, I10 Essential (primary) Cipriano WHALEN M.D. hypertension E78.5 Hyperlipidemia, unspecified E11.42 Type 2 diabetes mellitus with diabetic polyneuropathy Office Visit 01/17/2018 Orthopaedic [place], M17.11 Unilateral primary 3:00p Office Sun Vargas osteoarthritis, right knee Office Visit 01/16/2018 Family Kiersten Serna, I10 Essential ( primary) 3:00p Cipriano WHALEN M.D. hypertension E78.5 Hyperlipidemia, unspecified M25.561 Pain in right knee F52.21 Male erectile disorder Office Visit 12/19/2017 2:30p Family Kiersten Serna, M25.561 Pain in right Cipriano WHALEN M.DJovon knee M25.551 Pain in right hip Office Visit 10/18/2017 3:15p Family Kiersten Serna, I10 Essential (primary) Cipriano WHALEN M.D. hypertension E78.5 Hyperlipidemia, unspecified M25.551 Pain in right hip R19.7 Diarrhea, unspecified Office Visit 09/01/2017 11:45a Family Kiersten Serna, M25.551 Pain in right hip Cipriano WhiteDJovon Office Visit 07/07/2017 11:00a Family Kiersten Serna, Z23 Encounter for Cipriano WHALEN M.D. 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 I10 Essential (primary) hypertension Office Visit 04/06/2017 1:45p [facility] Kiersten Powell, I10 Essential (primary) [place] MARLEE MJovonDJovno hypertension R06.02 Shortness of breath H91.93 Unspecified hearing loss, bilateral Office Visit 03/16/2017 1:15p Pulmonology Lj Nath MD R06.02 Shortness of breath Office Visit 01/31/2017 1:00p Pulmonology Lj Nath MD R06.02 Shortness of breath Z78.9 Other specified health status Plan of Treatment Future Appointment(s):02/11/2019 9:30 am - Alex Carcamo MD at [facility] RD01/22/2019 4:15 pm - Nando Yang MD at 01/08/2019 10:15 am - Nando Yang MD at 12/11/2018 9:15 am - Alex Carcamo MD at [facility]
--- OUTSIDE RECORDS SUMMARY | 2018-11-30 18:13 | XMS REPORT | Continuity of Care Document ---
:1955 External Reference #:[id number] Author Name Nando Yang MD Address [address] [place] [address] Care Team Providers Name Role Phone Alex Carcamo MD Care Team Information Industrial Relations Analyst Unavailable Alex Carcamo MD Primary Care Physician Unavailable Payers Type Date Identification Numbers Payment Provider Subscriber Policy Number: [id number] Medicare Max Elizabeth PayID: [id number] [address] [place] [address] Policy Number: [id number] Medicaid Max Elizabeth PayID: [id number] [address] [place] [address] Advance Directives Description No Information Available Problems [...] Single Lives With Assisted Living Home Environment Retirement 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 No more than 3000mg in total with other prn order in one day. Sildenafil 08/13 Active Tablets 20mg 9tabs one by mouth N52.9 Clune, an hour prior Jenniferl to eigh, [employer] intercourse if not effective take 2 at next attempt Unistik 2 07/12 Active Misc 120un use four E11.42 Clune, Comfort its times daily Jenniferl for blood eigh, [employer] sugar testing Hydrocortisone 04/19 Active Cream 2.5% 20uni Apply To L30.9 ts Anterior Kiersten, Right Leg 3 M.D. Times A Day as Needed (Itching) Metoprolol 04/19 Active Tablets 50mg 180ta 1 by mouth Dona Tartrate bs twice a day MD Alex Lisinopril [...] Clune, its as directed Suleman dxe11.9 eigh, [employer] Glucagon 06/07 Active Kit 1mg 2unit inject [...] t Eucalyptus Active a/d Unknown /Menthol Cough / Drops Hydrocortisone Active Cream 2.5 a/d Unknown Cream /0000 Acetaminophen Active Tablets 500mg a/d Unknown Extra Strength / Acetaminophen 09/10 Hx Tablets 500mg 120ta 1 tab by M54.5 Dona, bs mouth every 6 MD Alex - hours as 11/01 needed. take more than 1 tab a day, no more than 4 tabs a day Dulcolax 08/07 Hx Tablets 5mg 4tabs [address] josefina pizarro 8pm Nando, - the day 11/01 before the [...] DR grace every day Jenniferl - eigh, [employer] 11/01 Lisinopril 01/16 Hx Tablets 30mg 30tab [...] every 4 Jenniferl - hours as kristie [employer] 09/10 needed pain, mdd=3g Acetaminophen 06/07 Hx Tablets 325mg 2 tablets by Pham, mouth bid by MD Lj - mouth as 07/07 needed for paini Vitamin D 06/06 Hx Capsules [id number] 4caps 1 cap by Sherry, (Ergocalciferol) mouth [...] 2.5mg 1 po daily Unknown /0000 Tylenol 00 Hx Capsules 325mg 1 tab by Unknown [...] both - eyes 4 times 03/20 a Levofloxacin Hx Tablets 750mg 1 1/2 by [...] CPT Code Status Date Vaccine Lot # 11101 Given 04/19/2018 Pneumovax Injection [id number] 02005 Given 07/07/2017 Influenza Virus Vaccine Quadrivalent Iiv4 Split Preser Free Id Vital Signs Date Vital Result Comment 11/01/2018 2:30pm BP Systolic Sitting Left Arm 152 mmHg BP Diastolic Sitting Left Arm 70 mmHg Heart Rate 61 /min Respiratory Rate 16 /min Height 68.75 inches 5'8.75" Weight 181.00 lb BMI (Body Mass Index) 26.9 kg/m2 BSA (Body Surface Area) 1.97 m2 [place] body weight in kilograms 72 kg O2 % BldC Oximetry 98 % 09/10/2018 11:18am BP Systolic 124 mmHg BP Diastolic 72 mmHg Body Temperature 95.7 F Heart Rate 72 /min Respiratory Rate 18 /min Height 68.75 inches 5'8.75" Weight 229.00 lb BMI (Body Mass Index) 34.1 kg/m2 BSA (Body Surface Area) 2.18 m2 [place] body weight in kilograms 72 kg O2 % BldC Oximetry 99 % 08/13/2018 1:49pm BP Systolic 126 mmHg BP Diastolic 74 mmHg Heart Rate 70 /min Respiratory Rate 18 /min Height 68.75 inches 5'8.75" Weight 235.00 lb BMI (Body Mass Index) 35.0 kg/m2 BSA (Body Surface Area) 2.21 m2 [place] body weight in kilograms 72 kg 08/07/2018 9:16am BP Systolic Sitting Left Arm 138 mmHg BP Diastolic Sitting Left Arm 82 mmHg Heart Rate 58 /min Respiratory Rate 16 /min Height 68.75 inches 5'8.75" Weight 231.00 lb BMI (Body Mass Index) 34.4 kg/m2 BSA (Body Surface Area) 2.19 m2 [place] body weight in kilograms 72 kg 08/01/2018 2:06pm BP Systolic 128 mmHg BP Diastolic 62 mmHg Body Temperature 98.0 F Heart Rate 61 /min Height 68.75 inches 5'8.75" Weight 230.00 lb BMI (Body Mass Index) 34.2 kg/m2 BSA (Body Surface Area) 2.19 m2 [place] body weight in kilograms 72 kg O2 % BldC Oximetry 98 % Pain Level 0 07/27/2018 2:44pm BP Systolic Sitting Left Arm 118 mmHg BP Diastolic Sitting Left Arm 78 mmHg Body Temperature 97.3 F Heart Rate 63 /min Respiratory Rate 18 /min Height 68.75 inches 5'8.75" Weight 230.25 lb BMI (Body Mass Index) 34.2 kg/m2 BSA (Body Surface Area) 2.19 m2 [place] body weight in kilograms 72 kg O2 % BldC Oximetry 98 % 07/13/2018 2:32pm BP Systolic 122 mmHg BP Diastolic 80 mmHg Body Temperature 96.6 F Heart Rate 65 /min Respiratory Rate 18 /min Height 68.75 inches 5'8.75" Weight 230.00 lb BMI (Body Mass Index) 34.2 kg/m2 BSA (Body Surface Area) 2.19 m2 [place] body weight in kilograms 72 kg O2 % BldC Oximetry 99 % 07/04/2018 3:04pm BP Systolic Sitting Left Arm 152 mmHg BP Diastolic Sitting Left Arm 71 mmHg Body Temperature 97.6 F Heart Rate 61 /min Respiratory Rate 18 /min Height 68.75 inches 5'8.75" Weight 230.38 lb BMI (Body Mass Index) 34.3 kg/m2 BSA (Body Surface Area) 2.19 m2 [place] body weight in kilograms 72 kg O2 % BldC Oximetry 100 % 05/29/2018 9:47am BP Systolic 162 mmHg BP Diastolic 72 mmHg Body Temperature 96.1 F Heart Rate 66 /min Respiratory Rate 18 /min Height 68.75 inches 5'8.75" Weight 226.00 lb BMI (Body Mass Index) 33.6 kg/m2 BSA (Body Surface Area) 2.17 m2 [place] body weight in kilograms 72 kg O2 % BldC Oximetry 97 % 04/19/2018 10:05am BP Systolic Sitting Left Arm 160 mmHg BP Diastolic Sitting Left Arm 82 mmHg Heart Rate 82 /min Height 68.75 inches 5'8.75" Weight 224.50 lb BMI (Body Mass Index) 33.4 kg/m2 BSA (Body Surface Area) 2.16 m2 [place] body weight in kilograms 72 kg O2 % BldC Oximetry 99 % 03/20/2018 4:07pm BP Systolic Sitting Left Arm 146 mmHg BP Diastolic Sitting Left Arm 84 mmHg Body Temperature 96.5 F Heart Rate 64 /min Height 65 inches 5'5" Weight 225.00 lb BMI (Body Mass Index) 37.4 kg/m2 BSA (Body Surface Area) 2.08 m2 [place] body weight in kilograms 62 kg 03/15/2018 8:58am BP Systolic 152 mmHg BP Diastolic 82 mmHg Body Temperature 96.5 F Heart Rate 68 /min Respiratory Rate 20 /min Height 72 inches 6'0" Weight 222.00 lb BMI (Body Mass Index) 30.1 kg/m2 BSA (Body Surface Area) 2.23 m2 [place] body weight in kilograms 81 kg O2 % BldC Oximetry 99 % 01/17/2018 3:23pm BP Systolic Sitting Right Arm 149 mmHg BP Diastolic Sitting Right Arm 73 mmHg Body Temperature 97.2 F Heart Rate 61 /min Respiratory Rate 18 /min Height 72 inches 6'0" Weight 222.00 lb BMI (Body Mass Index) 30.1 kg/m2 BSA (Body Surface Area) 2.23 m2 [place] body weight in kilograms 81 kg 01/16/2018 3:18pm BP Systolic Sitting Left Arm 140 mmHg BP Diastolic Sitting Left Arm 84 mmHg Height 72 inches 6'0" Weight 222.12 lb BMI (Body Mass Index) 30.1 kg/m2 BSA (Body Surface Area) 2.23 m2 [place] body weight in kilograms 81 kg 12/19/2017 2:18pm BP Systolic 124 mmHg BP Diastolic 80 mmHg Heart Rate 66 /min Height 72 inches 6'0" Weight 215.00 lb BMI (Body Mass Index) 29.2 kg/m2 BSA (Body Surface Area) 2.20 m2 [place] body weight in kilograms 81 kg O2 % BldC Oximetry 99 % 10/18/2017 3:35pm BP Systolic Sitting Left Arm 162 mmHg BP Diastolic Sitting Left Arm 68 mmHg Heart Rate 84 /min Height 72 inches 6'0" Weight 213.25 lb BMI (Body Mass Index) 28.9 kg/m2 BSA (Body Surface Area) 2.19 m2 [place] body weight in kilograms 81 kg 09/01/2017 12:06pm BP Systolic Sitting Right Arm 124 mmHg BP Diastolic Sitting Right Arm 72 mmHg Heart Rate 49 /min Height 72 inches 6'0" Weight 215.38 lb BMI (Body Mass Index) 29.2 kg/m2 BSA (Body Surface Area) 2.20 m2 [place] body weight in kilograms 81 kg O2 % BldC Oximetry 97 % 07/07/2017 11:01am BP Systolic 134 mmHg BP Diastolic 84 mmHg Body Temperature 97.1 F Heart Rate 73 /min Height 72 inches 6'0" Weight 213.00 lb BMI (Body Mass Index) 28.9 kg/m2 BSA (Body Surface Area) 2.19 m2 [place] body weight in kilograms 81 kg O2 [...] kg/m2 BSA (Body Surface Area) 2.15 m2 [place] body weight in kilograms 81 kg 03/16/2017 1:04pm BP Systolic Sitting Left Arm 104 mmHg BP Diastolic Sitting Left Arm 62 mmHg Heart Rate 92 /min Respiratory Rate 16 /min Height 72 inches 6'0" Weight 210.00 lb BMI (Body Mass Index) 28.5 kg/m2 BSA (Body Surface Area) 2.18 m2 [place] body weight in kilograms 81 kg O2 % BldC Oximetry 99 % 01/31/2017 12:56pm BP Systolic Sitting Left Arm 112 mmHg BP Diastolic Sitting Left Arm 60 mmHg Heart Rate 86 /min Respiratory Rate 16 /min Height 72 inches 6'0" Weight 216.00 lb BMI (Body Mass Index) 29.3 kg/m2 BSA (Body Surface Area) 2.20 m2 [place] body weight in kilograms 81 kg O2 % BldC Oximetry 98 % Results Test Date Facility Test Result H/L Range Note Laboratory test 09/10/[address] Slide Review (SEE NOTE) 1 , 2 finding [address] [place], [place] [id number] [phone] Urine Culture 09/10/[address] Urine Culture MIXED URETHRAL 3 [address] [facility] F <SEE NOTE> [place] [address] [phone] Quantity < 10,000 CFU/mL Ua RFX Micro & Culture 09/10/[address] Urine Color YELLOW Yellow II [address] [place] [address] [phone] Urine Clarity CLEAR Clear Urine Glucose - Dipstick 250 mg/dL High Negative Urine Bilirubin - Dipstick NEGATIVE Negative Urine Ketone NEGATIVE mg/dL Negative Urine Specific [place] 1.010 N 1.010-1.030 Urine Blood NEGATIVE Negative Urine PH 6.0 Low 6.5-7.5 Urine Protein - Dipstick NEGATIVE mg/dL Negative Urine Urobilinogen - Dipstick 0.2 E.U./dL N 0.2-1.0 Urine Nitrite - Dipstick NEGATIVE Negative Urine Leuk Esterase NEGATIVE Negative Source: URINE, CLEAN CAT <SEE NOTE> 4 CBC W/Automated Diff 09/10/[address] White Blood 7.1 K/uL N 3.4-10.[address] [place] [address] [place] [address] [phone] Red Blood Count 4.13 M/uL Low 4.20-5.80 [...] 33.0-73.0 Lymph % 27.0 % N 20.0-42.0 [place] % 7.4 % N 0.0-10.0 Eo% 2.2 % N 0.0-6.6 Bas% 0.3 % N 0.0-1.1 Neut# 4.50 K/uL N 1.8-7.0 Lymph # 1.93 K/uL N 1.0-4.0 [place] # 0.53 K/uL N 0.0-0.8 Eos # 0.16 K/uL N 0.0-0.5 Baso # 0.02 K/uL N 0.0-0.1 LDL Cholesterol Profile 09/10/[address] Cholesterol 77 mg/dL <200 5 [address] [place], [place] [id number] [phone] Triglycerides 122 mg/dL <150 6 HDL Cholesterol 33 mg/dL Low >40 7 LDL-Cholesterol 20 mg/dL < 100 8 Comprehensive Metabolic 09/10/[address] Glucose 266 mg/dL High 74-106 Panel [address] [place] [address] [phone] BUN 30 mg/dL High 7-18 Creatinine 1.3 mg/dL N 0.6-1.3 Glom Filtration Rate, Estimate 59 mL/min >60 If >60 mL/min >60 9 BUN/Creat 23.0 ratio Sodium 139 mmol/L N [...] 12-78 Alkaline Phosphatase 122 U/L High 45-117 Glycohemoglobin 09/10/[address] Glycohemoglobin 6.9 % High 4.2-6.[address] (A1c) [place], [place] [id number] [phone] eAG 151 mg/dL Laboratory test finding 08/07/2018 [facility] Ferritin 136 ng/mL N 26-388 11 [address] [place] [address] [phone] Antinuclear Antibodies, Ifa Negative . 12 Hepatitis C Virus Rna (PCR)-QL Negative Negative 13 Iron And Tibc Serum 08/07/2018 [facility] Serum Iron 104 g/dL N 65-175 [address] [place] [address] [phone] Total Iron Binding Capacity 293 g/dL N 250-450 Transferrin %Saturation 35 % N 12-57 Celiac Disease 08/07/2018 [facility] Immunoglobulin A 248 mg/dL 61-437 Comp PNL [address] [place] [address] [phone] Antigliadin Abs, IgG 6 units 0-19 14 Antigliadin Abs, IgA 6 units 0-19 15 Endomysial IgA Antibody Negative Negative t-Transglutaminase IgA <2 U/mL 0-3 16 t-Transglutaminase IgG <2 U/mL 0-5 17 Laboratory test 08/07/2018 [facility] Hepatitis A Negative Negative finding [address] [facility] [place] [address] [phone] Hepatitis A AB, Total Negative Negative Hepatitis B Core Antibody-IgM Negative Negative 18 Hep B Core AB Total Negative Negative Hepatitis C Antibody < 0.1 s/corat 0.0-0.9 19 Protein 08/07/2018 [facility] Protein,Total,Serum 6.7 6.0-8.[address] g/[place] [address] [phone] Albumin 3.4 g/dL 2.9-4.4 Qeipr-1-Ncxcvuoo 0.2 g/dL 0.0-0.4 Atmdu-4-Zpjqnbqg 0.9 g/dL 0.4-1.0 Beta Globulin 1.0 g/dL 0.7-1.3 Gamma Globulin 1.2 g/dL 0.4-1.8 M-Mark Anthony Not Observed g/dL Not Observed Globulin, Total 3.3 g/dL 2.2-3.9 A/G Ratio 1.0 0.7-1.7 Please Note: (SEE NOTE) 20 P E Interpretation, Serum (SEE NOTE) 21 Laboratory test 08/07/2018 [facility] Actin (Smooth 7 units 0-[address] Muscle) [place] [address] [phone] Mitochondrial (M2) Antibodies 8.4 units 0.0-20.0 23 Ycnce-6-Hdwspfbtsyd,Serum 124 mg/dL 90-200 Ceruloplasmin 22.1 mg/dL 16.0-31.0 [...] pH Ur Strip.auto 6.0 Low 6.5- 7.5 Albumin/Glob SerPl 08/02/2018 N2N/CCD Import Albumin/Glob SerPl 0.8 Alt SerPl-cCnc 08/02/2018 N2N/CCD Import Alt SerPl-cCnc 110 High 12-78 Anion Gap 08/02/2018 N2N/CCD Import Anion Gap 5 Low 8-16 SerPl-sCnc SerPl-sCnc Automated blood 08/02/2018 N2N/CCD Import Automated blood [...] measurement measurement (mass/volume) (mass/volume) Basic Metabolic 05/29/2018 [facility] Glucose 202 mg/dL High 74-106 24 Panel [address] [place] [address] [phone] BUN 31 mg/dL High 7-18 Creatinine 1.4 mg/dL High 0.6-1.3 Glom Filtration Rate, Estimate 54 mL/min >60 If >60 mL/min >60 25 BUN/Creat 22.1 ratio Sodium 144 mmol/L N 136-145 Potassium 5.0 mmol/L N 3.5-5.1 Chloride 110 mmol/L High 98-107 Carbon Dioxide 26 mmol/L N 21-32 Anion Gap 8 mEq/L N 8-16 Calcium 8.5 mg/dL N 8.5-10.1 Laboratory test 05/24/2018 [facility] Vitamin B12 659 pg/mL 211-946 finding Lipid Profile 1 05/24/2018 [facility] Cholest SerPl-mCnc 80 mg/dL < 200 Trigl SerPl-mCnc 254 mg/dL High <150 HDLc SerPl-mCnc 31 mg/dL Low >40 LDLc SerPl Calc-mCnc Questionable Res <SEE NOTE> mg/dL <100 26 VLDLc SerPl Calc-mCnc 51 mg/dL High 16-42 NonHDLc SerPl-mCnc 49 mg/dL <130 Comprehensive Metabolic 05/24/2018 [facility] Albumin SerPl 3.9 g/dL 3.5-5.2 Marrero BCG-mCnc [...] 70 mL/min/1.73m2 >60 Laboratory test finding 05/24/2018 [facility] TSH 1.000 u[IU]/mL 0.270 -4.200 Vit D 25 Hydroxy Total 29 ng/mL Low >30 Microalbumin,Urine 05/24/2018 [facility] Microalbumin Broken/Spilled i <23.0 27 Ur-mCnc <SEE NOTE> mg/L Creat Ur-mCnc Broken/Spilled i <SEE NOTE> mg/dL 28 Albumin/Creat Ur Broken/Spilled i <SEE NOTE> ug/mgcreat <20.0 29 Laboratory test 05/24/2018 [facility] Glucose Poc 194 mg/dL High 70- 105 finding Hemoglobin A1c 05/24/2018 [facility] Hgb A1c MFr Bld 7.5 % High 4.0- 6.0 Est. average glucose Bld gHb Est-mCnc 169 mg/dL High <126 Serum or plasma 04/19/2018 N2N/CCD Import Serum or plasma 72 <150 triglyceride triglyceride measurement measurement (mass/vol (mass/volume) Serum or plasma 04/19/2018 N2N/CCD Import Serum or plasma 66 <200 cholesterol cholesterol measurement measurement (mass/volu (mass/volume) Laboratory test 04/19/2018 [facility] Prostate Specific 0.30 < 4.0 30, [address] Antigen ng/[place] [address] [phone] Comprehensive 04/19/2018 [facility] Glucose 303 High 74-106 Metabolic Panel [address] mg/dL [place], [place] [id number] [phone] BUN 29 mg/dL High 7-18 Creatinine 1.3 [...] U/L High 45-117 LDL Cholesterol Profile 04/19/2018 [facility] Cholesterol 66 mg/dL <200 33 [address] [place] [address] [phone] Triglycerides 72 mg/dL <150 34 HDL Cholesterol 36 mg/dL Low >40 35 LDL-Cholesterol 16 mg/dL < 100 36 Laboratory test 04/19/2018 [facility] Vitamin 39.3 30.0-100.0 37 finding [address] [place] D,25-Hydroxy ng/[place] [address] [phone] Serum or plasma 04/19/2018 N2N/CCD Import Serum [...] in HDL measurement HDL measurement (ma (mass/volume) Ua RFX Micro & 03/17/2018 [facility] Urine Color YELLOW Yellow 38 Culture II [address] [place] [address] [phone] Urine Clarity CLEAR Clear Urine Glucose - Dipstick NEGATIVE mg/dL Negative Urine Bilirubin - Dipstick NEGATIVE Negative Urine Ketone NEGATIVE mg/dL Negative Urine Specific [place] <=1.005 Low 1.010-1.030 Urine Blood TRACE Negative Urine PH 5.5 Low 6.5-7.5 Urine Protein - Dipstick NEGATIVE mg/dL Negative Urine Urobilinogen - Dipstick 0.2 E.U./dL N 0.2-1.0 Urine Nitrite - Dipstick NEGATIVE Negative Urine Leuk Esterase NEGATIVE Negative Source: URINE, CLEAN CAT <SEE NOTE> 39 Hemoglobin A1c 02/21/2018 [facility] Hgb A1c MFr Bld 7.4 % High 4.0- 6.0 Est. average glucose Bld gHb Est-mCnc 166 mg/dL High <126 Laboratory test 02/21/2018 [facility] Glucose Poc 143 mg/dL High 70- 105 finding Basic Metabolic 01/16/2018 [facility] Glucose 172 mg/dL High 74-106 [address] [place] [address] [phone] BUN 24 mg/dL High 7-18 Creatinine 1.3 mg/dL N 0.6-1.3 Glom Filtration Rate, Estimate 59 mL/min >60 If >60 mL/min >60 41 BUN/Creat 18.4 ratio Sodium 140 mmol/L N 136-145 Potassium 4.4 mmol/L N 3.5-5.1 Chloride 106 mmol/L N 98-107 Carbon Dioxide 30 mmol/L N 21-32 Anion Gap 4 mEq/L Low 8-16 Calcium 8.7 mg/dL N 8.5-10.1 Hemoglobin A1c 11/24/2017 [facility] Hgb A1c MFr Bld 7.1 % High 4.0- 6.0 Est. average glucose Bld gHb Est-mCnc 157 mg/dL High <126 Laboratory test 11/24/2017 [facility] Glucose Poc 84 mg/dL 70-105 finding Stool Culture 11/22/2017 [facility] Stool Culture NO ENTERIC 42, [address] PATHO <[place] [address] NOTE> [phone] . ................ <SEE NOTE> 44 Note: INCLUDES TESTING <SEE NOTE> 45 . PLESIOMONAS, CAM <SEE NOTE> 46 . ................ <SEE NOTE> 47 . YERSINIA AND VIB <SEE NOTE> 48 . SHOULD BE REQUES <SEE NOTE> 49 Shiga Toxin 1 Antigen SHIGA TOXIN 1 NO <SEE NOTE> 50 Shiga Toxin 2 Antigen SHIGA TOXIN 2 NO <SEE NOTE> 51 Laboratory test 11/22/2017 [facility] C. Difficile Toxin Negative for [address] B By PCR tox <[place] [address] NOTE> [phone] Ova & Parasite 11/22/2017 [facility] Cryptosporidium NEGATIVE FOR [address] Specific Ag CRY <[place] [address] NOTE> [phone] Giardia Specific Antigen NEGATIVE FOR RHONDA <SEE NOTE> 54 Parasite Concentrate Exam Result 1 55 Permanent Trichrome Stain Test not perform <SEE NOTE> 56 CBC + Diff, Plat Count 10/10/2017 [facility] WBC Num Bld Auto 6.6 10*3/ uL 4-10 RBC Num Bld Auto 4.23 10*6/uL [...] Bld Auto-Rto 0 /100{WBCs} 0-0 Laboratory test 10/10/2017 [facility] Sed Rate - Esr 21 mm/hr High <20 finding Comprehensive 10/10/2017 [facility] Albumin SerPl 4.1 g/dL 3.5-5.2 57 Metabolic [...] >90 mL/min/1.73m2 >60 76 Laboratory test 10/10/2017 [facility] CRP Highly 1.5 mg/L <3.0 77 finding Sensitive LDL Cholesterol 06/23/2017 [facility] Cholesterol 63 mg/dL <200 78, 79 Profile [address] [place], [place] [address] [phone] Triglycerides 76 mg/dL <150 80 HDL Cholesterol 44 mg/dL >40 81 LDL-Cholesterol 4 mg/dL < 100 82 Comprehensive Metabolic 06/23/2017 [facility] Glucose 224 mg/dL High 74-106 Panel [address] [place], [place] [address] [phone] BUN 23 mg/dL High 7-18 Creatinine 0.9 mg/dL N 0.6-1.3 Glom Filtration Rate, Estimate >60 mL/min >60 If >60 mL/min >60 83 BUN/Creat 25.5 ratio Sodium 141 mmol/L N [...] 12-78 Alkaline Phosphatase 132 U/L High 45-117 CBS W/Automated 05/24/2017 [facility] White Blood 6.7 K/uL N 3.4-10.5 [address] [place] [address] [phone] Red Blood Count 4.52 M/uL N 4.20-5.80 [...] 33.0-73.0 Lymph % 29.6 % N 20.0-42.0 [place] % 8.6 % N 0.0-10.0 Eo% 4.3 % N 0.0-6.6 Bas% 0.3 % N 0.0-1.1 Neut# 3.85 K/uL N 1.8-7.0 Lymph # 1.99 K/uL N 1.0-4.0 [place] # 0.58 K/uL N 0.0-0.8 Eos # 0.29 K/uL N 0.0-0.5 Baso # 0.02 K/uL N 0.0-0.1 Basic Metabolic Panel 05/24/2017 [facility] Glucose 201 mg/dL High 74-[address] [place], [place] [address] [phone] BUN 19 mg/dL High 7-18 Creatinine 0.8 mg/dL N 0.6-1.3 Glom Filtration Rate, Estimate >60 mL/min >60 If >60 mL/min >60 85 BUN/Creat 23.7 ratio Sodium 140 mmol/L N 136-145 Potassium 4.0 mmol/L N 3.5-5.1 Chloride 105 mmol/L N 98-107 Carbon Dioxide 27 mmol/L N 21-32 Anion Gap 8 mEq/L N 8-16 Calcium 9.0 mg/dL N 8.5-10.1 Laboratory test 05/24/2017 [facility] Troponin-I 0.045 [address] ng/[place] [address] [phone] Glycohemoglobin A1c 05/24/2017 [facility] Glycohemoglobin 7.3 % High 4.[address] (A1c) -6. [place] [address] 3 [phone] eAG 163 mg/dL Laboratory test 05/24/2017 [facility] Troponin-I 0.044 ng/mL [address] [place] [address] [phone] Laboratory test 05/24/2017 [facility] Hepatitis C 0.1 s/corat 0.0-0. [address] Antibody 9 [place] [id number] [phone] CBS W/Automated 05/23/2017 [facility] White Blood 6.9 K/uL N 3.4-[address] Count .5 [place] [address] [phone] Red Blood Count 4.56 M/uL N 4.20-5.80 [...] 33.0-73.0 Lymph % 25.0 % N 20.0-42.0 [place] % 7.7 % N 0.0-10.0 Eo% 2.5 % N 0.0-6.6 Bas% 0.4 % N 0.0-1.1 Neut# 4.45 K/uL N 1.8-7.0 Lymph # 1.73 K/uL N 1.0-4.0 [place] # 0.53 K/uL N 0.0-0.8 Eos # 0.17 K/uL N 0.0-0.5 Baso # 0.03 K/uL N 0.0-0.1 Aot Request 05/23/2017 [facility] Aot Request Test(s) added 91 [address] [place] [address] [phone] Tests to be added: d-dimer Instructions: thank you Laboratory test 05/23/2017 [facility] Troponin-I 0.039 ng/mL 92, 93 finding [address] [place] [address] [phone] 1 E11.9 2 Instrument flagged sample for [...] Source: National Cholesterol Education Program (NCEP) 9 Note: Persistent reduction for 3 months or more in an eGFR <60 mL/min/1.73 m2 defines CKD. Patients with eGFR values >/=60 mL/min/1.73 m2 may also have CKD if evidence of persistent proteinuria is present. The original MDRD equation for estimated GFR is not valid for patients less than 18 years of age. Additional information may be found at www.kdoqi.org. 10 Elevated levels of HbA1c suggest the need for more aggressive treatment of glycemia. The [place] [employer] recommends that a primary goal of therapy should be a HbA1c of <7% and that physicians should re-evaluate the treatment regimen in patients with HbA1c values consistently >8%. 11 R94.5 12 Negative <1:80 Borderline 1:80 Positive >1:80 Performed at: [facility] [employer] [id number] [employer]: Irina Vitale MD, Phone: [phone] Performed at: [facility] [employer] [id number] [employer]: Brenna Ervin MD, Phone: [phone] Negative: HCV RNA Not Detected 14 Negative 0 - 19 Weak Positive 20 - 30 Moderate to Strong Positive >30 15 Negative 0 - 19 Weak Positive 20 - 30 Moderate to Strong Positive >30 16 Negative 0 - 3 Weak Positive 4 - 10 Positive >10 Tissue Transglutaminase (tTG) has been identified as the endomysial antigen. Studies have demonstr- ated that endomysial IgA antibodies have over 99% specificity for gluten sensitive enteropathy. 17 Negative 0 - 5 Weak Positive 6 - 9 Positive >9 18 Performed at: [email or web address] [address] [id number] [employer]: Irina Vitale MD, Phone: [phone] INFCE Result Units: s/co ratio Negative: < 0.8 Indeterminate: 0.8 - 0.9 Positive: > 0.9 The CDC recommends that a positive HCV antibody result be followed up with a HCV Nucleic Acid Amplification test (480148). 20 Protein electrophoresis scan will follow via computer, mail, or property technician delivery. 21 The SPE pattern appears [...] methods cannot be used interchangeably. Method: [employer] [place] [employer] immunoassay. 32 Note: Persistent reduction for [...] D deficiency has been defined by the [place] [employer] and an Endocrine Society practice guideline as a level of serum 25-OH vitamin D less than 20 ng/mL (1,2). The Endocrine Society went on to further define vitamin D insufficiency as a level between 21 and 29 ng/mL (2). 1. IOM ([place] [employer]). 2010. Dietary reference intakes for calcium and D. [place]: The National Academies Press. 2. Lucia MF, Cordelia NC, Stalin-Roque BEE, et al. Evaluation, treatment, and prevention of vitamin D deficiency: an Endocrine Society clinical practice guideline. JCEM. 2010; 96(7):1911-30. Performed at: RN - [facility] [address] [id number] Cooker Soda: Irina Vitale MD, Phone: [phone] FELL LAST NIGHT, R SIDE RIB, [...] parasitic infection Performed at: RN - [facility] [address] [id number] Cooker Soda: Irina Vitale MD, Phone: [phone] Test not performed 57 Confirmed 58 Confirmed 59 Confirmed 60 Confirmed 61 Confirmed 62 Confirmed Called to and read back by ISAIIED MEAGAN [phone] Confirmed 64 Confirmed 65 Confirmed 66 Confirmed 67 Confirmed 68 Confirmed 69 Confirmed 70 Confirmed 71 Confirmed 72 Confirmed 73 Confirmed 74 Confirmed 75 Confirmed 76 Confirmed 77 Confirmed (NOTE) CRPHS (mg/L) CVD risk <1.0 low 1.0-3.0 average >3.0 high 78 I10 79 Reference Guidelines*: Desirable: ........... < 200 mg/dL Borderline High: ..... 200-239 mg/dL High: ................ >=240 mg/dL * The National Cholesterol Education Program (NCEP) 80 Reference Guidelines*: Normal: ............. < 150 mg/dL Borderline High: .... 150-199 mg/dL High: ............... 200-499 mg/dL Very High: .......... > 500 mg/dL * Source: National Cholesterol Education Program (NCEP) 81 Reference Guidelines*: Low HDL: ..... < 40 mg/dL Normal: ..... 40-60 mg/dL Desirable: ... > 60 mg/dL *The National Cholesterol Education Program(NCEP) 82 Reference Guidelines*: Optimal:........... <100 mg/dL Near Optimal....... 100-129 mg/dL Borderline High.... 130-159 mg/dL High............... 160-189 mg/dL Very High.......... >=190 mg/dL * Source: National Cholesterol Education Program (NCEP) 83 Note: Persistent reduction for 3 months or more in an eGFR <60 mL/min/1.73 m2 defines CKD. Patients with eGFR values >/=60 mL/min/1.73 m2 may also have CKD if evidence of persistent proteinuria is present. The original MDRD equation for estimated GFR is not valid for patients less than 18 years of age. Additional information may be found at www.kdoqi.org. 84 CHEST PAIN,ACS 85 Note: Persistent reduction [...] Suggestive 0.6 - 1.5 ng/mL: Consistent 87 Elevated levels of HbA1c suggest the need for more aggressive treatment of glycemia. The [place] Diabetes Association recommends that a primary goal of therapy should be a HbA1c of <7% and that physicians should re-evaluate the treatment regimen in patients with HbA1c values consistently >8%. 88 0.0 - 0.045 ng/mL: Normal 0.046 - 0.5 ng/mL: Suggestive 0.6 - 1.5 ng/mL: Consistent 89 INFCE Result Units: s/co ratio Negative: < 0.8 Indeterminate: 0.8 - 0.9 Positive: > 0.9 The CDC recommends that a positive HCV antibody result be followed up with a HCV Nucleic Acid Amplification test (664414). Performed at: RN - [facility] [address] [id number] Cooker Soda: Irina Vitale MD, Phone: [phone] CHEST PAIN 91 Tests: d-dimer Instructions: thank you 92 CHEST PAIN,ACS 93 0.0 - 0.045 ng/mL: Normal 0.046 - 0.5 ng/mL: Suggestive 0.6 - 1.5 ng/mL: Consistent Procedures Date Code Description Status 08/22/2018 01019 Colonoscopy With Biopsy Completed 08/22/2018 60789473 Colonoscopy Completed 07/04/2018 33195 Asp./Injection major joint Completed 02/21/2018 366674260 Diabetic Foot Exam Completed 10/25/2017 69996 EKG Interpretation And Report Only Completed 05/23/2017 39472 Echocardiogram Complete Completed 05/23/2017 52124 Stress Test Interpre And Report Only Completed 05/23/2017 45012 Stress Test Physician Super Only Completed 05/23/2017 24104 Myocardial Imaging Tomographic Multiple Study AT Rest Completed Or Stress 02/22/2017 62122 Bronchospasm Provocation Evaluation Multi Spirometric Completed Determinati 02/22/2017 63096 Spirometry Completed Encounters Type Date Location Provider Dx Diagnosis Office Visit 09/10/2018 [facility] Alex Carcamo MD M54.5 Low back pain 11:15a RD E11.9 Type 2 diabetes mellitus without complications I10 Essential (primary) hypertension E78.5 Hyperlipidemia, unspecified Office Visit 08/13/2018 [facility] [place], N52.9 Male erectile 1:30p Medicine Cipriano Riveraandresdagmar, [employer] dysfunction, RD unspecified I10 Essential (primary) hypertension Office Visit 08/07/2018 9:00a Nando Castañeda MD R19.7 Diarrhea, unspecified R94.5 Abnormal results of liver function studies Office Visit 08/01/2018 Orthopaedic Yudith, M17.11 Unilateral primary 2:00p Office Amber S., osteoarthritis, RPAC right knee Office Visit 07/27/2018 [facility] Ree Beltran, S91.311D Laceration without 2:30p West RD [employer] foreign body, right foot, subs encntr N52.9 Male erectile dysfunction, unspecified Office Visit 07/13/2018 2:30p [facility] eRe Beltran, S91.311A Laceration [place] [address] [employer] without foreign body, right foot, init encntr Office Visit 07/04/2018 3:00p Orthopaedic Yudith, M25.561 Pain in right Office Amber S., [facility] M17.11 Unilateral primary osteoarthritis, right knee R26.89 Other abnormalities of gait and mobility Office Visit 05/29/2018 9:45a Family Medicine Kiersten Powell, I10 Essential (primary) Cipriano WHALEN M.D. hypertension Z12.11 Encounter for screening for malignant [...] Kiersten Serna, R10.31 Right lower Cipriano WHALEN M.D. quadrant pain M25.562 Pain in left knee Office Visit 03/15/2018 8:45a Family Medicine Kiersten Powell, I10 Essential (primary) Cipriano WHALEN M.D. hypertension E78.5 Hyperlipidemia, unspecified E11.42 Type 2 diabetes mellitus with diabetic polyneuropathy Office Visit 01/17/2018 Orthopaedic [place], M17.11 Unilateral primary 3:00p Office Sun Vargas osteoarthritis, right knee Office Visit 01/16/2018 Family Medicine Kiersten Powell, I10 Essential ( primary) 3:00p Cipriano WHALEN M.D. hypertension E78.5 Hyperlipidemia, unspecified M25.561 Pain in right knee F52.21 Male erectile disorder Office Visit 12/19/2017 2:30p Family Medicine Kiersten Powell, M25.561 Pain in right [place] MARLEE M.Gill knee M25.551 Pain in right hip Office Visit 10/18/2017 3:15p Family Medicine Kiersten Powell, I10 Essential (primary) Cipriano WHALEN M.D. hypertension E78.5 Hyperlipidemia, unspecified M25.551 Pain in right hip R19.7 Diarrhea, unspecified Office Visit 09/01/2017 11:45a Family Medicine Kiersten Powell, M25.551 Pain in right hip Cipriano WHALEN M.D. Office Visit 07/07/2017 11:00a Family Medicine Kiersten Powell, Z23 Encounter for Cipriano WHALEN M.D. immunization I10 Essential (primary) hypertension E78.5 Hyperlipidemia, unspecified E11.42 Type 2 diabetes mellitus with diabetic polyneuropathy M25.551 Pain in right hip Office Visit 06/06/2017 Family Criss[place], R07.9 Chest pain, 2:00p Medicine GUTIERREZ Tijerina unspecified RD I10 Essential (primary) hypertension Office Visit 04/06/2017 1:45p Family Medicine Kiersten Powell, I10 Essential (primary) Cipriano WHALEN M.D. hypertension R06.02 Shortness of breath H91.93 Unspecified hearing loss, bilateral Office Visit 03/16/2017 1:15p Pulmonology Lj Nath MD R06.02 Shortness of breath Office Visit 01/31/2017 1:00p Pulmonology Lj Nath MD R06.02 Shortness of breath Z78.9 Other specified health status Plan of Treatment Future Appointment(s):12/11/2018 9:15 am - Alex Carcamo MD at [facility]11/13/2018 1:00 pm - Alex Carcamo MD at [facility]
[2018-11-30 18:14] VITALS: BP 154/61
--- NOTE | 2018-11-30 18:25 | UC ---
Lower Extremity/Ankle HPI - HPI Summary HPI Summary: Pt is accompanied by snf caregiver. Pt has c/o left great toe swelling and pain and loss of great toe nail. Pt stubbed toe a few days an dnow has c/o of toenail falling off and mild tenderness and swelling, erythema, of great toe. - History of Current Complaint Chief Complaint: UCLowerExtremity Stated Complaint: LT GREAT TOE INJ Time Seen by Provider: 11/30/18 18:18 Hx Obtained From: Patient Onset/Duration: Gradual Onset, Lasting Days, Still Present Severity Initially: Moderate Severity Currently: Mild Pain Intensity: 3 Aggravating Factor(s): Standing, Ambulation Alleviating Factor(s): Rest, Elevation Able to Bear Weight: Yes - Risk Factors Gout Risk Factors: Age Over 40, Male, Diabetes, Obesity DVT Risk Factors: Negative Septic Arthritis Risk Factor: Negative - Allergies/Home Medications Allergies/Adverse Reactions: Allergies Allergy/AdvReac Type Severity Reaction Status Date / Time lactose Allergy GI Upset Verified 11/30/18 18:15 Home Medications: Home Medications Gabapentin CAP(*) [Neurontin 300 CAP(*)] 300 mg PO BEDTIME 11/30/18 [History Confirmed 11/30/18] lamoTRIgine TAB(*) [Lamictal TAB(*)] 50 mg PO TID 11/30/18 [History Confirmed ] PMH/Surg Hx/FS Hx/Imm Hx Previously Healthy: Yes Endocrine History: Diabetes - Surgical History Surgical History: Yes Surgery Procedure, Year, and Place: TRACHEOSTOMY. GASTROSTOMY. AMPUTATION TOES RIGHT FOOT - Family History Known Family History: Positive: Unknown - not in medical record provided - Social History Occupation: Disabled Lives: Retirement Alcohol Use: None Alcohol Amount: h/o ETOH abuse at least 2+ years Substance Use Type: None Smoking Status (MU): Never Smoked Tobacco Have You Smoked in the Last Year: No - Immunization History Vaccination Up to Date: Yes Review of Systems All Other Systems Reviewed And Are Negative: Yes Constitutional: Positive: Negative Skin: Positive: Other - erythema, mild swelling and toenail is falling off. Eyes: Positive: Negative ENT: Positive: Negative Respiratory: Positive: Negative Cardiovascular: Positive: Negative Gastrointestinal: Positive: Negative Musculoskeletal: Positive: Arthralgia, Edema, Myalgia Neurological: Positive: Negative Psychological: Positive: Negative Is Patient Immunocompromised?: No Physical Exam Triage Information Reviewed: Yes Appearance: Well-Appearing Vital Signs: Initial Vital Signs Temp 97.5 F 11/30/18 18:11 Pulse 65 11/30/18 18:11 Resp 14 11/30/18 18:11 BP 154/61 11/30/18 18:11 Pulse Ox 100 11/30/18 18:11 Vital Signs Reviewed: Yes Eye Exam: Normal ENT Exam: Normal Dental Exam: Normal Neck exam: Normal Respiratory: Positive: No respiratory distress Musculoskeletal: Positive: ROM Limited @, Edema @ Neurological Exam: Normal Psychological Exam: Normal Skin Exam: Other - left great toe, generalized mild swelling, toenail is loose and fallin tino, mild erthema of toe and c/o mild pain Lower Extremity Course/Dx - Differential Dx/Diagnosis Differential Diagnosis/HQI/PQRI: Fracture (Closed) Provider Diagnosis: Toenail avulsion, Toenail torn away, Wound infection Discharge - Sign-Out/Discharge Documenting (check all that apply): Patient Departure All imaging exams completed and their final reports reviewed: No Studies - Discharge Plan Condition: Stable Disposition: HOME Prescriptions: Cephalexin CAP* [Keflex 500 CAP*] 500 mg PO Q8H #30 cap Patient Education Materials: Wound Infection (ED), Acute Wound Care (ED) Referrals: Arturo HAMMER,Yony Brown [Doctor of Podiatric Medicine] - As Soon As Possible Allison Woodward NP [Primary Care Provider] - As Soon As Possible - Billing Disposition and Condition Condition: STABLE Disposition: Home - Attestation Statements Provider Attestation: Per institutional requirements, I have reviewed the chart, however, I was not consulted specifically or made aware of this patient by the midlevel provider. I did not personally evaluate, interact with , or disposition this patient.
== END 2018-11-30 18:46 | disposition home or self-care (01) ==
LOC: UCCORT 16:56
DX: S91.202A Unspecified open wound of left great toe with damage to nail, initial encounter (principal); L08.9 Local infection of the skin and subcutaneous tissue, unspecified; Z91.011 Allergy to milk products; E11.9 Type 2 diabetes mellitus without complications; X58.XXXA Exposure to other specified factors, initial encounter; Y92.9 Unspecified place or not applicable
CPT/HCPCS: 99212; G0463

== ENCOUNTER 2019-07-25 18:43 | Emergency (ER) | payer MEDICARE, MEDICAID ==
--- OUTSIDE RECORDS SUMMARY | 2019-07-25 19:47 | XMS REPORT | Continuity of Care Document ---
:1955 Author Organization [facility] Address [address] [place] [phone] Phone Care Team Providers Name Role Phone Saeid Cabello DPM Unavailable Unavailable Allergies, Adverse Reactions, Alerts Substance Reaction Status No Known allergies Medications Medication Instructions Dosage Effective Dates (start - stop) Status Comments No information Problems Condition Effective Dates (start - Clinical Status Comments stop) Nail dystrophy - Type 2 diabetes mellitus with - diabetic polyneuropathy Procedures Procedure Date Debridement, nails, 6 or more, any method OFFICE/OUTPATIENT VISIT EST Results Test Name Date and Time Measure Units Reference Range Abnormal Flag Status Comments No information Advance Directives Directive Yes / No Effective Date File Name Other Directive No N/A N/A WARNING:The information contained in this section is historical and is provided for information onlyand does not constitute a legal document or any assurance that the information is still accurate. Please verify the information with the clark of the legal document before using it for clinical purposes. Encounters Encounter Practice Location Reason(s) For Diagnoses Date Provider Providers Description Visit Copied on Encounter OFFICE/OUTPAT [facility] Onychomycosis Nail Destiney IENT VISIT [facility] (chief dystrophyType 2 8-201 Saeid. EST Health complaint) diabetes [address] [facility] mellitus with [facility], [address] [place] [address] polyneuropathy [place] [address]. [place], tel:[phone] tel:[phone] Family History Family Member Diagnosis Age At Onset No information Immunizations Vaccine Date Status Comments No information Payers Payer name Insurance type Covered democrat ID Authorization(s) Medicare [id number] Medicaid [id number] Social History Type Description Quantity Date Captured Comments Alcohol Use Details Unknown Caffeine Use Details Unknown Tobacco Use Status Unknown Smoking Status Never smoker Non-Smoking Tobacco : No Details Available : No Details Available 2018 Use Details Sex Male Vital Signs Date / Height Weight BMI Pulse Blood Temperature Respiratory Body Head BMI Pulse Inhaled Time: Rate Pressure Rate Surface Circumference percentile Ox Ox Area 103/59 -2019 /min mm[Hg] 9:15 AM Chief Complaint And Reason For Visit Most recent encounter only, dated '05/23/2019 09:00'. Onychomycosis ( chief complaint). Description: Level of severity is mild-moderate. Location is: bilateral foot. Reason For Referral Reason For Referral No information Plan Of Treatment Date Type Action Status Appointment Max Elizabeth BOOKED History Of Present Illness Encounter Date Complaint History Of Present Illness Onychomycosis Level of severity is mild-moderate. Location is: bilateral foot. Functional Status Date Functional Assessment No information Medications Administered Medication Instructions Dosage Effective Dates (start - stop) Status Comments No information Instructions Date Instruction Additional Information Return to clinic 10 weeks and call Related to Nail dystrophy if any questions arise. Pt to FU with primary care provider Related to Type 2 diabetes mellitus for diabetes and its complications with diabetic polyneuropathy within the next 6 mos. Assessments Type Assessment Date assessment Nail dystrophy assessment Type 2 diabetes mellitus with diabetic polyneuropathy impression Debrided all nails aseptically with nipper and dermabrasion. Goals Health Concern Goal Type Priority Status Date No information Medical Equipment Description Device Burns Device Identifier Effective Dates (start - stop ) Status No information Mental Status Date Cognitive Assessment No information Health Concerns Observation Date No information Concern Status Date No information
[2019-07-25 19:52] VITALS: BP 174/86
--- NOTE | 2019-07-25 20:29 | UC ---
Skin Complaint HPI - HPI Summary HPI Summary: Pt is accompanied by fdcnursing home assistant. Pt presents with c/o loss of toenail to left third toenail that fell of today while taking a shower. - History of Current Complaint Chief Complaint: UCLowerExtremity Time Seen by Provider: 07/25/19 20:22 Stated Complaint: LEFT LITTLE TOE CONCERN Hx Obtained From: Patient Onset/Duration: Sudden Onset, Still Present Skin Exposure Onset/Duration: Minutes Ago Timing: Constant Onset Severity: Mild Current Severity: Mild Pain Intensity: 0 Location: Discrete - left third toenail Aggravating Factor(s): Touch Alleviating Factor(s): Other - bandage Associated Signs & Symptoms: Positive: Negative - Allergy/Home Medications Allergies/Adverse Reactions: Allergies Allergy/AdvReac Type Severity Reaction Status Date / Time lactose Allergy GI Upset Verified 07/25/19 19:53 Home Medications: Home Medications Carboxymethylcellulos/Glycerin [Refresh Optive Eye Drops] 1 dose OP DAILY [History Confirmed 07/25/19] Cholecalciferol (Vitamin D3) [Vitamin D3] 1,000 unit PO DAILY 07/25/19 [History Confirmed 07/25/19] FLUoxetine CAP* [Prozac CAP*] 10 mg PO DAILY 07/25/19 [History Confirmed ] tiZANidine TAB* [Zanaflex TAB*] 4 mg PO DAILY 07/25/19 [History Confirmed ] PMH/Surg Hx/FS Hx/Imm Hx Previously Healthy: Yes - Surgical History Surgical History: Yes Surgery Procedure, Year, and Place: TRACHEOSTOMY. GASTROSTOMY. AMPUTATION TOES RIGHT FOOT AND LEFT FOOT - Family History Known Family History: Positive: Unknown - not in medical record provided - Social History Occupation: Disabled Lives: Assisted Alcohol Use: None Alcohol Amount: h/o ETOH abuse at least 2+ years Substance Use Type: None Smoking Status (MU): Never Smoked Tobacco Have You Smoked in the Last Year: No - Immunization History Vaccination Up to Date: Yes Review of Systems All Other Systems Reviewed And Are Negative: Yes Constitutional: Positive: Negative Skin: Positive: Other - loss of toenail Eyes: Positive: Negative ENT: Positive: Negative Respiratory: Positive: Negative Cardiovascular: Positive: Negative Gastrointestinal: Positive: Negative Genitourinary: Positive: Negative Motor: Positive: Negative - uses walker to ambulate Neurovascular: Positive: Negative Musculoskeletal: Positive: Negative Neurological: Positive: Negative Psychological: Positive: Negative Is Patient Immunocompromised?: No Physical Exam Triage Information Reviewed: Yes Appearance: Well-Appearing Vital Signs: Initial Vital Signs Temp 98.2 F 07/25/19 19:47 Pulse 52 07/25/19 19:47 Resp 18 07/25/19 19:47 BP 174/86 07/25/19 19:47 Pulse Ox 100 07/25/19 19:47 Vital Signs Reviewed: Yes ENT: Positive: Hearing grossly normal - nikolai-moderate Dental Exam: Normal Neck exam: Normal Respiratory: Positive: No respiratory distress Musculoskeletal Exam: Normal - uses walker Neurological Exam: Normal Psychological Exam: Normal Skin Exam: Other - left third toe toenail is off toe and small amount of blood Course/Dx - Course Course Of Treatment: I discussed with the caregiver and pt the need to f/u with foot spiritual care coordinator. I also discussed the use of antibiotics to prevent an infection given age and comorbidities. - Differential Diagnoses - Skin Complaint Differential Diagnoses: Cellulitis, Other - toenail avulsion - Diagnoses Provider Diagnosis: Traumatic loss of toenail of lesser toe of left foot Discharge ED - Sign-Out/Discharge Documenting (check all that apply): Patient Departure All imaging exams completed and their final reports reviewed: No Studies - Discharge Plan Condition: Stable Disposition: HOME Prescriptions: Cephalexin CAP* [Keflex 500 CAP*] 500 mg PO Q8H #21 cap Patient Education Materials: Nail Avulsion (ED) Referrals: Alex Carcamo MD [Primary Care Provider] - If Needed Additional Instructions: Please follow up with your foot spiritual care coordinator as soon as possible. - Billing Disposition and Condition Condition: STABLE Disposition: Home
== END 2019-07-25 20:41 | disposition home or self-care (01) ==
LOC: UCCORT 18:43
DX: S91.204A Unspecified open wound of right lesser toe(s) with damage to nail, initial encounter (principal); Z91.011 Allergy to milk products; W19.XXXA Unspecified fall, initial encounter; Y93.E1 Activity, personal bathing and showering; Y92.199 Unspecified place in other specified residential institution as the place of occurrence of the external cause
CPT/HCPCS: 99212; G0463

== ENCOUNTER 2019-08-17 09:59 | Emergency (ER) | payer MEDICARE, MEDICAID ==
[2019-08-17 11:33] VITALS: BP 163/74
--- NOTE | 2019-08-17 12:10 | UC ---
Shoulder Pain HPI - HPI Summary HPI Summary: per spindle setter: RIght shoulder pain onset s/p unwitnessed fall this AM 0930 -per staff member with him, his ROM is at baseline as he has previous limited use. -denies numbing/tingling. -doesnt have much pain more than baseline. has known OA. - History of Current Complaint Chief Complaint: UCUpperExtremity Stated Complaint: LEFT SHOULDER COMPLAINT (FALL) Time Seen by Provider: 08/17/19 11:22 Pain Intensity: 2 - Allergies/Home Medications Allergies/Adverse Reactions: Allergies Allergy/AdvReac Type Severity Reaction Status Date / Time lactose Allergy GI Upset Verified 07/25/19 19:53 Home Medications: Home Medications Amlactin 12% 1 applic TOPICAL BID 08/17/19 [History Confirmed 08/17/19] Sildenafil (NF) [Viagra (NF)] 20 mg PO SEE INSTRUCTIONS 08/17/19 [History Confirmed 08/17/19] PMH/Surg Hx/FS Hx/Imm Hx - Surgical History Surgical History: Yes Surgery Procedure, Year, and Place: TRACHEOSTOMY. GASTROSTOMY. AMPUTATION TOES RIGHT FOOT AND LEFT FOOT - Family History Known Family History: Positive: Unknown - not in medical record provided - Social History Alcohol Use: None Alcohol Amount: h/o ETOH abuse at least 2+ years Substance Use Type: None Smoking Status (MU): Never Smoked Tobacco Have You Smoked in the Last Year: No - Immunization History Vaccination Up to Date: Yes Review of Systems All Other Systems Reviewed And Are Negative: Yes Constitutional: Positive: Negative Skin: Positive: Negative Respiratory: Positive: Negative Cardiovascular: Positive: Negative Gastrointestinal: Positive: Negative Genitourinary: Positive: Negative Motor: Positive: Negative, Decreased ROM - at baseline Neurovascular: Positive: Negative Musculoskeletal: Positive: Other: - see above Neurological: Positive: Negative Psychological: Positive: Negative Is Patient Immunocompromised?: No Physical Exam Triage Information Reviewed: Yes Appearance: Well-Appearing, No Pain Distress, Well-Nourished Vital Signs: Initial Vital Signs Temp 97.8 F 08/17/19 11:26 Pulse 56 08/17/19 11:26 Resp 18 08/17/19 11:26 BP 163/74 08/17/19 11:26 Pulse Ox 100 08/17/19 11:26 Eye Exam: Normal ENT Exam: Normal Neck exam: Normal Respiratory Exam: Normal Cardiovascular Exam: Normal Musculoskeletal: Positive: Other: - right hsoulder: NT to palpation. no bruising. able to get FROm flex and adduction but extremes are slightly painful. CR brisk. sens intact. + 2 radial Psychological Exam: Normal Skin Exam: Normal Shoulder Course/Dx - Course Course Of Treatment: right shoulder xray: "per spindle setter: "REPORT AND IMPRESSION: #. Negative for fracture. #. Normal acromioclavicular and glenohumeral joint alignment. #. Severe acromioclavicular and mild glenohumeral joint osteoarthritis. #. Inferior acromial bone spur. #. Sclerosis and cystic change at the greater tuberosity of the humerus typically seen in setting of chronic rotator cuff pathology. #. Negative for calcific tendinopathy. #. Unremarkable soft tissue contours. <Electronically signed by Caden Hills MD in OV> 08/17/19 1201"" -he is not in any pain and has baseline decreased ROM. Offered sling but he denies need for -consider PT/ortho -f/u with PCP - Differential Dx/Diagnosis Differential Diagnosis/HQI/PQRI: AC Separation, Contusion, Sprain, Strain Provider Diagnosis: Right shoulder pain Discharge ED - Sign-Out/Discharge Documenting (check all that apply): Patient Departure All imaging exams completed and their final reports reviewed: Yes - Discharge Plan Condition: Stable Disposition: HOME Patient Education Materials: Shoulder Sprain (ED) Referrals: Alex Carcamo MD [Primary Care Provider] - 5 Days Additional Instructions: The xray report does not indicate any fracture but there is significant amount of arthritis. Follow up with PT or orthopedic doctor may be of good use if not already done so. - Billing Disposition and Condition Condition: STABLE Disposition: Home
== END 2019-08-17 12:25 | disposition home or self-care (01) ==
LOC: UCCORT 09:59
DX: M25.511 Pain in right shoulder (principal); M19.011 Primary osteoarthritis, right shoulder; M89.8X1 Other specified disorders of bone, shoulder; Z91.011 Allergy to milk products
CPT/HCPCS: 99212; G0463